=== PATIENT | female | born 1970 | race Caucasian/White ===

== ENCOUNTER → 2020-08-19 07:44 | Outpatient (BNVA) | payer OTHER, SELFPAY | PROVIDERS: PCP Internal Medicine; Referring Provider Internal Medicine; Visit Provider Internal Medicine | DX: Z76.89 Persons encountering health services in other specified circumstances (principal) ==

== ENCOUNTER 2020-08-19 08:00 | Outpatient (REF) | payer OTHER, SELFPAY ==
[2020-08-19 11:10] LABS: Free T4 (Free Thyroxine) 1.53 ng/dL (0.71-1.85); Thyroid Stimulating Hormone 1.55 uIU/mL (0.32-4.0); Vitamin D 25-OH Total 47.6 ng/mL (>30)
== END 2020-08-19 08:01 | disposition home or self-care (01) ==
LOC: HO.10HDL 08:00
PROVIDERS: Visit Provider Internal Medicine
DX: E03.9 Hypothyroidism, unspecified (principal); E04.2 Nontoxic multinodular goiter; E55.9 Vitamin D deficiency, unspecified
CPT/HCPCS: 36415; 82306; 84439; 84443

== ENCOUNTER 2021-03-09 14:21 | Outpatient (REF) | payer OTHER, SELFPAY ==
--- NOTE | ~2021-03-09 | MM_ITS ---
EXAMINATION: MM SCREENING DIGITAL BREAST TOMOSYNTHESIS, BILATERAL CLINICAL INFORMATION: Screening. Asymptomatic. The lifetime risk of breast cancer based on the Tyrer-Cuzick Model is 10%. COMPARISON: Mammography: 01/10/2020, 11/09/2018, 09/14/2006 TECHNIQUE: Digital breast tomosynthesis is performed in both the craniocaudal and mediolateral oblique views along with computer-aided detection (CAD). Synthesized 2D images are generated from the tomosynthesis. FINDINGS: There are scattered areas of fibroglandular density (ACR BI-RADS breast composition Category b). There are no significant masses, abnormal calcifications, or other abnormalities. Parenchymal pattern is similar to prior studies. Nodular asymmetry anterior upper outer left breast is stable. No developing density. There is mild asymmetry of the breast, left slightly larger, similar to prior studies. The axilla are unremarkable. MM/MM tomosynthesis screening BI IMPRESSION: No mammographic evidence of malignancy. ASSESSMENT: BI-RADS 2: Benign RECOMMENDATION: Routine annual mammography screening. This patient's information was entered into a reminder system with a target due date for their next mammogram.
== END 2021-03-09 14:22 | disposition home or self-care (01) ==
LOC: HO.MAMMO 14:21
PROVIDERS: Visit Provider Internal Medicine
DX: Z12.31 Encounter for screening mammogram for malignant neoplasm of breast (principal)
CPT/HCPCS: 77063; 77067

== ENCOUNTER 2021-07-03 07:48 | Outpatient (REF) | payer OTHER, SELFPAY ==
[2021-07-03 09:10] LABS: Hematocrit 45.5 % (37.0-47.0); Hemoglobin 14.9 g/dl (12.0-16.0); Mean Corpuscular HGB Conc 32.7 g/dl (31.0-35.0); Mean Corpuscular Hemoglobin 29.8 pg (27.0-33.0); Mean Platelet Volume 11.5 fL (9.4-12.3); Platelet Count 251 X10*3/uL (160-400); White Blood Count 7.5 X10*3/uL (4.8-10.8)
[2021-07-03 09:38] LABS: Alanine Aminotransferase 37 U/L (0-31); Albumin Level 4.7 g/dL (3.5-5.0); Alkaline Phosphatase 61 U/L (39-117); Anion Gap 15 (12-20); Aspartate Amino Transferase 21 U/L (5-31); Bilirubin Total 0.2 mg/dL (0.0-1.0); Blood Urea Nitrogen 22 mg/dL (9-16); Calcium 9.5 mg/dL (8.4-10.2); Carbon Dioxide 25 mmol/L (22-29); Chloride 107 mmol/L (96-108); Cholesterol 141 mg/dL; Estimated Glomerular Filt Rate > 60; Glucose Fasting 92 mg/dL (60-99); HDL Cholesterol 54 mg/dL; LDL Cholesterol Calculated 65 mg/dl; Potassium 4.7 mmol/L (3.3-5.1); Sodium 142 mmol/L (135-145); Total Protein 7.8 g/dL (6.5-8.0); Triglycerides 110 mg/dL
[2021-07-03 09:49] LABS: TSH reflex Free T4 2.04 uIU/mL (0.32-4.0)
[2021-07-03 09:59] LABS: Estimated Average Glucose 105 mg/dL; Hemoglobin A1C 151.9669 umol/L; Hemoglobin A1c % 5.3 %
[2021-07-03 10:20] LABS: Vitamin D 25-OH Total 43.3 ng/mL (>30)
== END 2021-07-03 07:49 | disposition home or self-care (01) ==
LOC: HO.LAB 07:48
PROVIDERS: PCP Internal Medicine; Visit Provider Physician Assistant
DX: Z13.1 Encounter for screening for diabetes mellitus (principal); E03.9 Hypothyroidism, unspecified; E66.9 Obesity, unspecified; E55.9 Vitamin D deficiency, unspecified
CPT/HCPCS: 36415; 80053; 80061; 82306; 83036; 84443; 85027

== ENCOUNTER → 2021-07-28 14:33 | Outpatient (REF) | payer OTHER, SELFPAY ==
--- NOTE | 2021-07-28 14:38 | ECG_ITS ---
Test Reason : r00.2 Blood Pressure : / mmHG Vent. Rate : 066 BPM Atrial Rate : 066 BPM P-R Int : 176 ms QRS Dur : 094 ms QT Int : 428 ms P-R-T Axes : 058 -48 091 degrees QTc Int : 448 ms Normal sinus rhythm with sinus arrhythmia Left axis deviation Incomplete right bundle branch block Nonspecific T wave abnormality Abnormal ECG When compared with ECG of 19-FEB-2017 02:14, QRS duration has decreased Nonspecific T wave abnormality no longer evident in Inferior leads T wave inversion no longer evident in Anterior leads Referred By: Aicha Rodriguez Electronically Signed By:LIBBY HATFIELD MD
== END ==
LOC: HO.CARD 14:33
PROVIDERS: Visit Provider Nurse Practitioner Family
DX: R00.2 Palpitations (principal)
CPT/HCPCS: 93005

== ENCOUNTER → 2021-08-18 08:24 | Outpatient (BNVA) | payer OTHER, SELFPAY | PROVIDERS: PCP Internal Medicine; Visit Provider Internal Medicine ==

== ENCOUNTER → 2021-10-20 06:51 | Outpatient (REF) | payer OTHER, SELFPAY ==
--- NOTE | 2021-10-20 06:56 | HM_ITS ---
* Total monitoring time 3 days and 2 hours. * Underlying rhythm is sinus. Average rate 82/Min. Range 61 to 120/Min. * No atrial fibrillation or flutter or AV blocks or pauses. * Rare ventricular ectopy with minimal burden. * No clear patient symptoms documented. MTDD
== END ==
LOC: HO.CARD 06:51
PROVIDERS: PCP Internal Medicine; Visit Provider Nurse Practitioner Family
DX: R00.2 Palpitations (principal)
CPT/HCPCS: 93242

== ENCOUNTER 2022-01-28 12:08 | Outpatient (REF) | payer OTHER, SELFPAY ==
[2022-01-28 14:19] LABS: Free T4 (Free Thyroxine) 1.06 ng/dL (0.71-1.85); Thyroid Stimulating Hormone 0.71 uIU/mL (0.32-4.0)
[2022-01-28 14:25] LABS: Alanine Aminotransferase 45 U/L (0-31); Albumin Level 4.5 g/dL (3.5-5.0); Alkaline Phosphatase 59 U/L (39-117); Anion Gap 14 (12-20); Aspartate Amino Transferase 27 U/L (5-31); Bilirubin Total 0.3 mg/dL (0.0-1.0); Blood Urea Nitrogen 15 mg/dL (9-16); Calcium 8.7 mg/dL (8.4-10.2); Carbon Dioxide 26 mmol/L (22-29); Chloride 108 mmol/L (96-108); Estimated Glomerular Filt Rate > 60; Glucose Random 90 mg/dL (60-115); Potassium 4.5 mmol/L (3.3-5.1); Sodium 143 mmol/L (135-145); Total Protein 7.2 g/dL (6.5-8.0)
== END 2022-01-28 12:09 | disposition home or self-care (01) ==
LOC: HO.10HDL 12:08
PROVIDERS: Absent Provider Nurse Practitioner Family; Visit Provider Internal Medicine
DX: E03.9 Hypothyroidism, unspecified (principal); E04.2 Nontoxic multinodular goiter; I10 Essential (primary) hypertension
CPT/HCPCS: 36415; 80053; 84439; 84443

== ENCOUNTER 2022-03-18 15:42 | Outpatient (REF) | payer OTHER, SELFPAY ==
--- NOTE | ~2022-03-18 | MM_ITS ---
EXAMINATION: MM SCREENING DIGITAL BREAST TOMOSYNTHESIS, BILATERAL CLINICAL INFORMATION: Screening. Asymptomatic. The lifetime risk of breast cancer based on the Tyrer-Cuzick Model is 10%. COMPARISON: Mammography: 03/09/2021, 01/10/2020, 11/09/2018 TECHNIQUE: Digital breast tomosynthesis is performed in both the craniocaudal and mediolateral oblique views along with computer-aided detection (CAD). Synthesized 2D images are generated from the tomosynthesis. FINDINGS: There are scattered areas of fibroglandular density (ACR BI-RADS breast composition Category b). Parenchymal pattern is similar to prior studies. There is a stable nodule anterior upper outer left breast. There is no developing density or architectural abnormality or abnormal calcifications. The axilla are unremarkable. The skin contours are smooth. Again, there is a probable intradermal lesion under 1 cm inferior to the left inframammary fold on MLO view similar to prior exams. MM/MM tomosynthesis screening BI IMPRESSION: No significant changes from prior studies. ASSESSMENT: BI-RADS 2: Benign RECOMMENDATION: Routine annual mammography screening. This patient's information was entered into a reminder system with a target due date for their next mammogram.
== END 2022-03-18 15:43 | disposition home or self-care (01) ==
LOC: HO.MAMMO 15:42
PROVIDERS: PCP Internal Medicine; Visit Provider Internal Medicine
DX: Z12.31 Encounter for screening mammogram for malignant neoplasm of breast (principal)
CPT/HCPCS: 77063; 77067

== ENCOUNTER 2022-05-02 13:26 | Outpatient (REF) | payer OTHER, SELFPAY ==
--- NOTE | ~2022-05-02 | XR_ITS ---
EXAMINATION: XR HIP, LEFT CLINICAL INFORMATION: Left hip pain COMPARISON: None TECHNIQUE: Two views of the left hip. FINDINGS: Bones and soft tissues are normal. No fracture. Alignment is anatomic. Hip joint space is maintained. XR/XR hip LT min 2V IMPRESSION: Normal left hip.
== END 2022-05-02 13:27 | disposition home or self-care (01) ==
LOC: HO.XRAY 13:26
PROVIDERS: PCP Internal Medicine; Visit Provider Internal Medicine
DX: M25.552 Pain in left hip (principal)
CPT/HCPCS: 73502

== ENCOUNTER 2022-08-20 08:47 | Outpatient (REF) | payer OTHER, SELFPAY ==
[2022-08-20 09:23] LABS: Hematocrit 42.6 % (37.0-47.0); Hemoglobin 14.1 g/dl (12.0-16.0); Mean Corpuscular HGB Conc 33.1 g/dl (31.0-35.0); Mean Corpuscular Hemoglobin 29.8 pg (27.0-33.0); Mean Corpuscular Volume 90.1 fL (80.0-98.0); Mean Platelet Volume 11.2 fL (9.4-12.3); Platelet Count 205 X10*3/uL (160-400); Red Blood Count 4.73 X10*6/uL (4.20-5.50); White Blood Count 5.3 X10*3/uL (4.8-10.8)
[2022-08-20 09:43] LABS: Creatinine Urine 209.54 mg/dL
[2022-08-20 09:52] LABS: Alanine Aminotransferase 46 U/L (0-31); Albumin Level 4.4 g/dL (3.5-5.0); Alkaline Phosphatase 63 U/L (39-117); Anion Gap 14 (12-20); Aspartate Amino Transferase 23 U/L (5-31); Bilirubin Direct 0.4 mg/dL (0.0-0.5); Bilirubin Total 1.1 mg/dL (0.0-1.0); Blood Urea Nitrogen 13 mg/dL (9-16); Calcium 8.9 mg/dL (8.4-10.2); Carbon Dioxide 25 mmol/L (22-29); Chloride 108 mmol/L (96-108); Cholesterol 150 mg/dL; Estimated Glomerular Filt Rate > 60; Glucose Fasting 97 mg/dL (60-99); HDL Cholesterol 59 mg/dL; LDL Cholesterol Calculated 83 mg/dl; Sodium 143 mmol/L (135-145); Total Protein 7.1 g/dL (6.5-8.0); Triglycerides 43 mg/dL
[2022-08-20 10:08] LABS: Vitamin D 25-OH Total 30.6 ng/mL (>30)
== END 2022-08-20 08:48 | disposition home or self-care (01) ==
LOC: HO.LAB 08:47
PROVIDERS: PCP Physician Assistant; Visit Provider Physician Assistant
DX: I10 Essential (primary) hypertension (principal); E03.9 Hypothyroidism, unspecified; E55.9 Vitamin D deficiency, unspecified; R74.01 Elevation of levels of liver transaminase levels
CPT/HCPCS: 36415; 80053; 80061; 80076; 82043; 82306; 84443; 85027

== ENCOUNTER 2022-09-12 11:22 | Outpatient (REF) | payer OTHER, SELFPAY ==
--- NOTE | ~2022-09-12 | XR_ITS ---
EXAMINATION: XR PELVIS CLINICAL INFORMATION: Sacroiliitis. COMPARISON: None TECHNIQUE: AP view of the pelvis. FINDINGS: SI joints are symmetric with mild sclerosis. Pubic symphysis is maintained. No acute fractures or malalignment. Mild joint space narrowing with subcortical sclerosis of the hips. Pelvic phleboliths. No suspicious soft tissue calcifications. XR/XR pelvis 1-2V IMPRESSION: 1. No acute fractures or malalignment. 2. Mild symmetric sclerosis of the SI joints. 3. Mild degenerative osteoarthritis of the hips.
--- NOTE | ~2022-09-12 | XR_ITS ---
EXAMINATION: XR LUMBOSACRAL SPINE CLINICAL INFORMATION: Sacroiliitis. COMPARISON: No similar priors. TECHNIQUE: Three views of the lumbosacral spine. FINDINGS: Transitional lumbar anatomy with sacralization of L5. No acute compression deformity or subluxation. Mild left apical curvature of the lumbar spine. Disc height loss and facet arthropathy at L4-L5. SI joints are symmetric with mild sclerosis. No significant paraspinal soft tissue abnormality. XR/XR lumbar spine 2-3V IMPRESSION: 1. No acute compression deformity or malalignment. 2. Mild to moderate lower lumbar spondylosis. 3. SI joints are symmetric with mild sclerosis.
== END 2022-09-12 11:23 | disposition home or self-care (01) ==
LOC: HO.XRAY 11:22
PROVIDERS: PCP Physician Assistant; Visit Provider Physician Assistant
DX: M46.1 Sacroiliitis, not elsewhere classified (principal); M54.50 Low back pain, unspecified
CPT/HCPCS: 72100; 72170

== ENCOUNTER → 2022-09-28 13:00 | Outpatient (BNVA) | payer OTHER, SELFPAY | PROVIDERS: PCP Physician Assistant; Visit Provider Internal Medicine | DX: Z13.89 Encounter for screening for other disorder (principal) ==

== ENCOUNTER 2022-10-28 10:19 | Outpatient (REF) | payer OTHER, SELFPAY ==
[2022-10-28 13:35] LABS: Alanine Aminotransferase 41 U/L (0-31); Albumin Level 4.3 g/dL (3.5-5.0); Alkaline Phosphatase 59 U/L (39-117); Aspartate Amino Transferase 24 U/L (5-31); Bilirubin Direct 0.2 mg/dL (0.0-0.5); Bilirubin Total 0.5 mg/dL (0.0-1.0); Lipase 18 U/L (8-78); Total Protein 6.7 g/dL (6.5-8.0)
[2022-11-04 13:58] LABS: Transglutaminase Ab IgG 1.1 U/mL; Transglutaminase IgA <1.0 U/mL
== END 2022-10-28 10:20 | disposition home or self-care (01) ==
LOC: HO.LAB 10:19
PROVIDERS: PCP Physician Assistant; Visit Provider Nurse Practitioner Family
DX: R10.9 Unspecified abdominal pain (principal); K58.1 Irritable bowel syndrome with constipation; R10.13 Epigastric pain
CPT/HCPCS: 36415; 80076; 83690; 86364

== ENCOUNTER 2023-03-17 11:07 | Day surgery (SDC) | payer OTHER, SELFPAY ==
[2023-03-15 14:43] VITALS: BMI 32.4
--- NOTE | 2023-03-16 09:24 | HO.ANESPROP2 ---
Documented by User: Tenisha Gardner NP 03/16/23 09:25 HPI - Anesthesia Eval Consult details Narrative: 53yo F for Upper Endoscopy and Colonoscopy PMFSH Active Problems Active Problems: All Active Problems (Updated 03/15/23 @ 14:32 by Haritha Armas RN) Annual physical exam (Acute) Colon cancer screening (Acute) Obese (Acute) Screening for diabetes mellitus (DM) (Acute) Screening for hypercholesterolemia (Acute) Intermittent palpitations (Acute) Benign essential hypertension (Acute) Elevated ALT measurement (Acute) Left hip pain (Acute) Cervical cancer screening (Acute) SI (sacroiliac) joint inflammation (Acute) Lumbar spine pain (Acute) JT (generalized anxiety disorder) (Acute) Vitamin D deficiency (Acute) Multinodular thyroid (Acute) Hypothyroidism (Acute) Past Medical History Medical History (Updated 03/15/23 @ 14:32 by Haritha Armas RN) Anxiety Hypothyroidism Multinodular thyroid Vitamin D deficiency Family History Family History Father Lung cancer Mother Hypothyroidism Diabetes mellitus CAD (coronary artery disease) Brother CAD (coronary artery disease), Onset Age: 50 Diabetes mellitus Surgical History Surgical History (Updated 03/15/23 @ 14:43 by Haritha Armas RN) History of dilatation and curettage History of esophagogastroduodenoscopy (EGD) Hx of section Hx of tonsillectomy Social History Social History Housing: House Are you a primary patient care secretary to a significant other at home: No Do you presently have visiting nurse or other home services: No Alcohol intake: current Alcohol intake frequency: holidays/special occasions only Patient Tobacco Use Status: Former Tobacco user Quit Date: 2011 Tobacco use type: Cigarette Cigarette Packs Per Day: 1 Years Smoked: 20 e-Cigarette/Vaping Use: Never Used Second Hand Smoke Exposure: No Use of substances other than those prescribed or required for medical reasons: No Have you been hit, kicked, punched, or otherwise hurt by someone within the past year? 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[employer] ) Cognitive needs: No Hearing needs: No Vision needs: Yes (glasses) Meds Allergies Allergy/AdvReac Type Severity Reaction Status Date / Time Seasonal Allergies Allergy Unknown Unknown Verified 03/15/23 14:30 Home Medications Medication Instructions Recorded Confirmed Last Taken Type bupropion HCl 100 mg tablet 100 mg PO QPM 03/15/23 03/15/23 Unknown History losartan 25 mg tablet 25 mg PO QAM 03/15/23 03/15/23 Unknown History Exam Exam Date and Time: March 16, 2023923 Height,Weight and Vital Signs: Height 5 ft 4 in Weight 85.729 kg Assessment and Plan Assessment Anesthesia Assessment: Chart Reviewed Documented by User: Brinda Zimmerman MD 03/17/23 13:42 [facility] Past Medical History Medical History (Updated 03/15/23 @ 14:32 by Haritha Armas RN) Anxiety Hypothyroidism Multinodular thyroid Vitamin D deficiency Family History Family History Father Lung cancer Mother Hypothyroidism Diabetes mellitus CAD (coronary artery disease) Brother CAD (coronary artery disease), Onset Age: 50 Diabetes mellitus Family history of problems with anesthesia: No Surgical History Surgical History (Updated 03/15/23 @ 14:43 by Haritha Armas RN) History of dilatation and curettage History of esophagogastroduodenoscopy (EGD) Hx of section Hx of tonsillectomy History of Problems with Anesthesia: No Social History Social History Housing: House Are you a primary patient care secretary to a significant other at home: No Do you presently have visiting nurse or other home services: No Alcohol intake: current Alcohol intake frequency: holidays/special occasions only Patient Tobacco Use Status: Former Tobacco user Quit Date: 2011 Tobacco use type: Cigarette Cigarette Packs Per Day: 1 Years Smoked: 20 e-Cigarette/Vaping Use: Never Used Second Hand Smoke Exposure: No Use of substances other than those prescribed or required for medical reasons: No Have you been hit, kicked, punched, or otherwise hurt by someone within the past year? 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[employer] ) Cognitive needs: No Hearing needs: No Vision needs: Yes (glasses) Meds Allergies Allergy/AdvReac Type Severity Reaction Status Date / Time Seasonal Allergies Allergy Unknown Unknown Verified 03/15/23 14:30 Home Medications Medication Instructions Recorded Confirmed Last Taken Type bupropion HCl 100 mg tablet 100 mg PO QPM 03/15/23 03/15/23 Unknown History losartan 25 mg tablet 25 mg PO QAM 03/15/23 03/15/23 Unknown History Exam Airway Mallampati Class: II (cap left bottom back, fake tooth removed and at home) TM Dist: >3cm Neck ROM: Full Heart: rrr Lungs: cta Assessment and Plan Assessment Anesthesia Assessment: Anesthesia Plan Discussed Final Anesthetic Review Family History of Problems with Anesthesia: No History of Problems with Anesthesia: No NPO: Yes ASA Class: II Final Preanesthetic Review: No Changes in Pt Med Stat, Meds/Allgs Chart Reviewed and Consent Obtained/Reviewed Patient Risk: Intermediate Procedure Risk: Intermediate Anesthetic Plan Anesthetic Plan: MAC: Disposition: Standard PACU
[2023-03-17 12:05] VITALS: BP 141/101; PULSE 66; RESP 16; TEMP 36.8; O2SAT 98; BMI 33.3
[2023-03-17] MEDS: Lactated Ringers 1,000 ML 100 ML IVCONT (12:34)
--- NOTE | 2023-03-17 12:36 | MHC.SHP ---
Pre-Procedural Eval Section A Date of Service: 03/17/23 The patient is an INPATIENT: No The History & Physical has been completed within 30 days and I have reviewed it.: No Section B Chief Complaint: Screening, epigastric pain and bloating Relevant Family History (Specify if Yes): No Relevant Social History: Tobacco Use (former smoker) Present Medications: see Short Stay Collaborative assessment Medical History: Significant History (Hypothyroidism Multinodular thyroid Vitamin D deficiency) History of Previous Operations: Relevant previous surgery/procedure and date(s) (Hx of section Hx of tonsillectomy) Allergies: Allergies Allergy/AdvReac Type Severity Reaction Status Date / Time Seasonal Allergies Allergy Unknown Unknown Verified 03/15/23 14:30 Review of Systems Sugical H&P ROS: Negative: Constitution, Cardiovascular and Respiratory and Yes, Specify: Gastrointestinal (epigastric pain, bloating, constipation) Exam Surgical H&P Exam: Normal: Heart, Normal: Lungs, Normal: Extremities and Normal: Abdomen Plan Diagnosis/Plan: Unchanged I have reviewed the history and physical and performed a pertinent physical examination on my patient. No changes have occurred unless specified. Time Spent With Patient Time: Total time managing care of this patient today ____ minutes.
--- NOTE | 2023-03-17 13:45 | P.OP_ITS ---
Operative Note Operative Note Date of Service: 03/17/23 Narrative: FLEXIBLE TRANSORAL UPPER GASTROINTESTINAL ENDOSCOPY WITH BIOPSIES AND COLONOSCOPY TILL CECUM WITH SNARE POLYPECTOMY Pre-op diagnosis: Colon cancer screening, epigastric pain and bloating, hx of PUD Post-op diagnosis: Gastritis, gastric erosions, colon polyps, diverticulosis Endoscopist:? Sandy Horn MD Anesthesia:?MAC UPPER ENDOSCOPY Consent: Indications for the procedure and potential complications of bleeding, perforation, reaction to medications and missed diagnosis were discussed with the patient and informed consent was obtained. Instrument: Olympus GIF H 190 mid size upper endoscope Monitoring: Vital signs and clinical assessment, continuous EKG monitoring, Pulse oximetry, Carbon Dioxide monitoring and blood pressure monitoring were done throughout the procedure. Procedure: The patient was placed in the left lateral decubitis position and pre-procedure medications were administered and a bite block was placed. The endoscope was inserted into the mouth and advanced under direct vision to the third part of duodenum. A careful inspection was made as the upper endoscope was withdrawn including a retroflexed examination of the proximal stomach; Findings and interventions are described below. Findings: Larynx: Normal Esophagus: GE junction at 38 cms. No esophagitis or Guaman's. Stomach: A few linear eroions overlying gastric folds in the body of the stomach - biopsied. Moderate gastric erythema. Biopsies were obtained. Grade 2 flap valve with possible para-esophageal hernia on retroflexed examination of the cardia. Duodenum: Normal bulb and descending duodenum. Biopsies were obtained from third part of duodenum to check for celiac sprue Intervention: Biopsies as noted above COLONOSCOPY PROCEDURE NOTE Consent: Indications for the procedure and potential complications of bleeding, perforation, reaction to medications and missed diagnosis were discussed with the patient and informed consent was obtained. Instrument: Olympus PCF H 190 L variable stiffness pediatric colonoscope Monitoring: Vital signs and clinical assessment, intermittent blood pressure monitoring, continuous EKG monitoring, Pulse oximetry and Carbon Dioxide monitoring were done throughout the procedure. Colon withdrawl time was 15 minutes. Procedure: The patient was placed in the left lateral decubitis position and pre-procedure medications were administered. After a digital rectal examination of the ano-rectum, the video colonoscope was inserted into the rectum and advanced through the colon to the cecum. The colonoscope was slowly withdrawn in a retrograde panoramic fashion and the colon mucosa was carefully examined including a retroflexed view of the rectum. Findings and interventions are described below. Procedure Difficulty: : Without difficulty Findings: Terminal Ileum: Not evaluated Cecum: Normal Ascending Colon: A 7-8 mm sessile polyp in the distal AC/hepatic flexure - removed with a cold snare Transverse Colon: Normal Descending Colon: Normal Sigmoid Colon: Moderate diverticulosis Rectum: A 7-8 mm sessile polyp - removed with a cold snare Ano-rectum: Hypertrophied anal papillae on retroflexed exam. Colon preparation: Excellent Impression and Post Procedure Diagnosis: Endoscopy Findings: STOMACH: A few linear eroions overlying gastric folds in the body of the stomach - biopsied. Moderate gastric erythema. Biopsies were obtained. Grade 2 flap valve with possible para-esophageal hernia on retroflexed examination of the cardia. DUODENUM: Normal - biopsied to check for celiac sprue Colonoscopy Findings: Two small polyps removed Moderate diverticulosis seen in the sigmoid colon Plan: Await pathology results Patient has an appointment on 03/31/23 in the [facility] with Samantha Valdovinos FNP- [facility]. Repeat Colonoscopy interval based on path results - in 5 years if polyps are adenomatous and 10 years if polyps are hyperplastic. Above findings were reviewed with the patient and colon polyps and diverticulosis handouts were given in the discharge area Pt advised to start taking Omeprazole for gastric erosions and schedule an UGI to confirm presence of suspected paraesophageal hernia
[2023-03-17 14:40] VITALS: BP 138/87; PULSE 68; RESP 18; TEMP 36.6; O2SAT 98
[2023-03-17 14:55] VITALS: BP 138/87; PULSE 68; RESP 18; TEMP 36.4; O2SAT 98
== END 2023-03-17 15:20 | disposition home or self-care (01) ==
PROVIDERS: PCP Physician Assistant; Visit Provider Internal Medicine Gastroenterology
PROC: (CPT 45385; principal; 2023-03-17 12:40)
DX: Z12.11 Encounter for screening for malignant neoplasm of colon (principal); D12.2 Benign neoplasm of ascending colon; K62.1 Rectal polyp; K57.30 Diverticulosis of large intestine without perforation or abscess without bleeding; K58.1 Irritable bowel syndrome with constipation; K62.89 Other specified diseases of anus and rectum; R14.0 Abdominal distension (gaseous); K29.70 Gastritis, unspecified, without bleeding; K25.9 Gastric ulcer, unspecified as acute or chronic, without hemorrhage or perforation; E03.9 Hypothyroidism, unspecified; E04.2 Nontoxic multinodular goiter; E55.9 Vitamin D deficiency, unspecified; Z79.899 Other long term (current) drug therapy; Z87.891 Personal history of nicotine dependence
CPT/HCPCS: 45385; 43239; 88305; 88342; J2250

== ENCOUNTER → 2023-03-17 11:07 | Outpatient (BNV) | payer OTHER, SELFPAY | PROVIDERS: PCP Physician Assistant; Visit Provider Internal Medicine Gastroenterology | DX: Z12.11 Encounter for screening for malignant neoplasm of colon (principal); R10.13 Epigastric pain; D12.2 Benign neoplasm of ascending colon; K57.30 Diverticulosis of large intestine without perforation or abscess without bleeding; K29.70 Gastritis, unspecified, without bleeding | CPT/HCPCS: 43239; 45385 ==

== ENCOUNTER 2023-03-22 15:55 | Outpatient (REF) | payer OTHER, SELFPAY | END 2023-03-22 15:56 | disposition home or self-care (01) | LOC: HO.MAMMO 15:55 | PROVIDERS: PCP Internal Medicine; Visit Provider Internal Medicine | DX: Z12.31 Encounter for screening mammogram for malignant neoplasm of breast (principal) | CPT/HCPCS: 77063; 77067 ==

== ENCOUNTER → 2023-03-22 16:15 | Outpatient (BNV) | payer OTHER, SELFPAY | PROVIDERS: PCP Internal Medicine; Visit Provider Radiology Diagnostic Radiology | DX: Z12.31 Encounter for screening mammogram for malignant neoplasm of breast (principal) | CPT/HCPCS: 77063; 77067 ==

== ENCOUNTER 2023-03-31 08:08 | Outpatient (REF) | payer OTHER, SELFPAY ==
--- NOTE | ~2023-03-31 | XR_ITS ---
EXAMINATION: XR ELBOW, LEFT CLINICAL INFORMATION: Pain. COMPARISON: None available. TECHNIQUE: AP, lateral, and oblique views of the left elbow. FINDINGS: The bones and soft tissues are normal. No fracture or joint effusion. Alignment is anatomic. Joint spaces are maintained. XR/XR elbow LT 2V IMPRESSION: Normal left elbow.
== END 2023-03-31 08:09 | disposition home or self-care (01) ==
LOC: HO.XRAY 08:08
PROVIDERS: PCP Internal Medicine; Visit Provider Internal Medicine
DX: M25.522 Pain in left elbow (principal)
CPT/HCPCS: 73070

== ENCOUNTER 2023-03-31 08:30 | Outpatient (AMB) | payer OTHER, SELFPAY ==
--- NOTE | 2023-03-31 08:34 | A.OFFVIS_ITS ---
Intake Vital Signs 03/31/23 08:35 Height 5 ft 4 in Weight 198 lb 6.656 oz BMI 34.1 BP 150/86 H Blood Pressure Location Lt brachial Position Sitting Pulse 78 Intake Visit Reasons: S/p colon-Kory Intake Note: Gay presents in office as a post op in colonoscopy follow up. CC: Pt reports she continues having constipation bloating , gas , and abdominal pain. Denies any new GI concerns today. [employer] Required: No Accompanied by: Self / Same As Patient Allergies Seasonal Allergies Allergy (Unknown, Verified 03/31/23 08:45) Unknown HPI S/p colon-Kory HPI Details LAST VISIT Colon cancer screening Patient denies any cardiac or respiratory symptoms.? Denies any issues with anesthesia in the past.? Denies any history of sleep apnea.? No history infectious diseases in the past or present.? Not on any anticoagulation therapy.? No family or personal history of colon cancer or polyps.? Patient denies melena, hematochezia, unintentional weight loss or ribbon like stools.? Discussed at length the pre-procedure,? prep, diet & medications as well as what to expect prior, during and after the procedure.?? Stressed the importance of good bowel prep. ?Recommended the use of Vaseline or Calmoseptine OTC & baby wipes with bowel movements to promote comfort.? ?Patient verbalizes understanding and agrees to plan of care.? She was given the opportunity to ask questions and all questions answered.? We will see her after the procedure.? IBS (irritable bowel syndrome) Patient reports occasional constipation for friend abdominal bloating. Discussed with patient avoiding dietary triggers. Low FODMAP diet discussed with patient. List of food recommended as well as list of food to avoid given to patient. Postprandial epigastric pain Occasional postprandial epigastric discomfort. Patient reports to have a history of gastric ulcers when she was younger. Will send her for upper endoscopy as well. We will also check for celiac, pancreatic insufficiency. Will check liver enzymes and lipase. I will see her after the procedures. She will call me sooner if she will have any GI concerning symptoms. Patient is agreeable to this plan and verbalizes understanding of instructions. She was given the opportunity to ask questions all questions answered. ? UPPER ENDOSCOPY AND COLONOSCOPY Findings: Larynx: Normal Esophagus: GE junction at 38 cms. No esophagitis or Guaman's. Stomach: A few linear eroions overlying gastric folds in the body of the stomach - biopsied. Moderate gastric erythema. Biopsies were obtained. Grade 2 flap valve with possible para-esophageal hernia on retroflexed examination of the cardia. Duodenum: Normal bulb and descending duodenum. Biopsies were obtained from third part of duodenum to check for celiac sprue Intervention: Biopsies as noted above COLONOSCOPY Findings: Terminal Ileum: Not evaluated Cecum: Normal Ascending Colon: A 7-8 mm sessile polyp in the distal AC/hepatic flexure - removed with a cold snare Transverse Colon: Normal Descending Colon: Normal Sigmoid Colon: Moderate diverticulosis Rectum: A 7-8 mm sessile polyp - removed with a cold snare Ano-rectum: Hypertrophied anal papillae on retroflexed exam. Colon preparation: Excellent Impression and Post Procedure Diagnosis: Endoscopy Findings: STOMACH: A few linear eroions overlying gastric folds in the body of the stomach - biopsied. Moderate gastric erythema. Biopsies were obtained. Grade 2 flap valve with possible para-esophageal hernia on retroflexed examination of the cardia. DUODENUM: Normal - biopsied to check for celiac sprue Colonoscopy Findings: Two small polyps removed Moderate diverticulosis seen in the sigmoid colon Plan: Await pathology results Patient has an appointment on 03/31/23 in the GI Clinic with Samantha Valdovinos FNP- BC. Repeat Colonoscopy interval based on path results - in 5 years if polyps are adenomatous and 10 years if polyps are hyperplastic. PATHOLOGY RESULTS Diagnosis A. Small bowel, biopsy: Small bowel mucosa within normal limits; preserved villous architecture no increased intraepithelial lymphocytes seen. B. Stomach, antrum, biopsy: Gastric antral mucosa with reactive gastropathy; negative for Helicobacter pylori, intestinal metaplasia and dysplasia. C. Stomach, erosion, biopsy: Gastric body mucosa with mild reactive gastropathy; negative for Helicobacter pylori, intestinal metaplasia and dysplasia. D. Colon, ascending, polypectomy: Sessile serrated polyp/lesion without dysplasia. E. Colon, rectum, polypectomy: Hyperplastic polyp. TODAY'S VISIT: Patient is here today for follow-up and to discuss upper endoscopy and colonoscopy. Patient denies any ill effects from the prep, anesthesia or procedure itself. Patient continues with postprandial epigastric pain. Patient states that after she eats she will get sharp pain in epigastric area. States that does not happen every time. Patient was placed on omeprazole after going for the procedure. Takes 20 mg every morning. Patient continues to have occasional postprandial abdominal bloating. Occasional postprandial loose stools and then constipation. Patient does admit that she might not be eating food that is healthy. Patient is trying to change her diet and trying to exercise. Patient is trying to lose weight as well. Patient reports occasional dyspepsia without dysphagia or odynophagia. Patient denies melena, hematochezia, unintentional weight loss or ribbon like stools. [facility] Medical History (Updated 03/31/23 @ 09:23 by Samantha Valdovinos [facility]) Anxiety Vitamin D deficiency Multinodular thyroid Hypothyroidism Surgical History (Updated 03/30/23 @ 09:10 by Carlo Mart) Hx of colonoscopy History of esophagogastroduodenoscopy (EGD) History of dilatation and curettage Hx of tonsillectomy Hx of section Family History Father Lung cancer Mother Hypothyroidism Diabetes mellitus CAD (coronary artery disease) Brother CAD (coronary artery disease), Onset Age: 50 Diabetes mellitus Social History Housing: House Are you a primary critical care rn to a significant other at home: No Do you presently have visiting nurse or other home services: No Alcohol intake: current Alcohol intake frequency: holidays/special occasions only Patient Tobacco Use Status: Former Tobacco user Quit Date: 2011 Tobacco use type: Cigarette Cigarette Packs Per Day: 1 Years Smoked: 20 e-Cigarette/Vaping Use: Never Used Second Hand Smoke Exposure: No service: No Current occupational status: employed 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[employer] ) Cognitive needs: No Hearing needs: No Vision needs: Yes (glasses) Review of Systems Const Denies weight gain and Denies weight loss ENT Reports no additional complaints, Denies dysphagia and Denies odynophagia Card Reports no additional complaints Resp Reports no additional complaints GI Denies abdominal pain, Denies belching, Denies melena, Reports bloating, Reports constipation, Denies dysphagia, Denies excessive flatus, Denies dyspepsia, Denies heartburn, Denies diarrhea, Reports loose stools, Denies nausea, Denies odynophagia and Denies vomiting Reports no additional complaints Musc Reports no additional complaints Neuro Reports no additional complaints Psych Reports no additional complaints Endo Reports no additional complaints Physical Exam Vital Signs: Last Vital Signs Pulse 78 03/31/23 08:35 BP 150/86 H 03/31/23 08:35 BMI result Body Mass Index 34.1 Const General: healthy appearing, no acute distress and well developed Nutritional Appearance: well nourished Orientation/consciousness: patient oriented x3 HEENT Head: Yes normal to inspection, Yes normocephalic and Yes atraumatic Face and sinus: Yes normal facial exam Mouth: Normal oral and palatal mucosa present Throat: Yes posterior oropharynx normal, Yes tonsils normal and Yes uvula midline Eyes General: appearance normal, both eyes and all related structures Neck Neck: Yes normal visual inspection, Yes full ROM and Yes trachea midline Thyroid: Thyroid normal Resp Effort & Inspection: normal respiratory effort, able to speak in complete sentences, no tracheal deviation and symmetric chest movement Auscultation: clear to auscultation bilaterally Cardio Rate: regular rate Heart sounds: S1 normal heart sound present and S2 normal heart sound present GI Inspection: Yes normal to inspection, No distended and Yes obesity Palpation (GI): Soft to palpation, not firm, nontender and No hepatosplenomegaly present Auscultation: normal bowel sounds General: Yes no CVA tenderness Back/Spine/Pelvis Back: no CVA tenderness Skin General skin exam: elasticity normal, turgor normal and dry skin Neuro General: patient oriented x3 Psych Appearance: grossly normal Mental Status: mental status grossly normal Speech and movement: Normal speech and movement present Assessment & Plan Assessment & Plan (1) Paraesophageal hernia: Code(s): K44.9 - Diaphragmatic hernia without obstruction or gangrene Plan: Possible paraesophageal hernia, patient will be sent for barium swallow. (2) Postprandial epigastric pain: Code(s): R10.13 - Epigastric pain Plan: Patient reports postprandial epigastric pain occasionally. Will send her to evaluate for paraesophageal hernia (3) Gastric erosions: Code(s): K25.9 - Gastric ulcer, unspecified as acute or chronic, without hemorrhage or perforation Qualifiers: Gastric ulcer chronicity: chronic Qualified Code(s): K25.7 - Chronic gastric ulcer without hemorrhage or perforation (4) GERD (gastroesophageal reflux disease): Code(s): K21.9 - Gastro-esophageal reflux disease without esophagitis Qualifiers: Esophagitis presence: without esophagitis Qualified Code(s): K21.9 - Gastro-esophageal reflux disease without esophagitis Plan: Continue omeprazole in the morning half an hour before breakfast. Patient can take Pepcid on as needed basis at bedtime. Discussed with patient avoiding dietary triggers in late night snacking. Staying upright for minimum 3 hours after meals discussed with patient. (5) IBS (irritable bowel syndrome): Code(s): K58.9 - Irritable bowel syndrome without diarrhea Qualifiers: Irritable bowel syndrome type: with both diarrhea and constipation Qual ified Code(s): K58.2 - Mixed irritable bowel syndrome Plan: Discussed with patient again dietary triggers that could be affecting her loose stools postprandially. Low FODMAP diet discussed. List of food recommended as well as list of food to avoid given to patient again. I will see her in 6 months, sooner on as needed basis. Patient is agreeable to this plan and verbalizes understanding of instructions. She was given the opportunity to ask questions all questions answered. Thank you for allowing me to participate in her care Medications: New famotidine (Pepcid) 20 mg PO BEDTIME 30 tabs 3RF K21.9 - Gastro-esophageal reflux disease without esophagitis Changed From omeprazole Take one capsule daily 30 minutes before breakfast 20 mg PO .Daily 60 days 60 caps 2RF K25.9 - Gastric ulcer, unspecified as acute or chronic, without hemorrhage or perforation To omeprazole Take one capsule daily 30 minutes before breakfast 20 mg PO DAILY 60 days 60 caps 2RF K25.9 - Gastric ulcer, unspecified as acute or chronic, without hemorrhage or perforation Coding Level of Care Code Est Pt Level 4 (81898) Diagnoses Paraesophageal hernia K44.9 Postprandial epigastric pain R10.13 Chronic gastric erosion K25.7 Gastric ulcer chronicity: chronic Gastroesophageal reflux disease without esophagitis K21.9 Esophagitis presence: without esophagitis Irritable bowel syndrome with both constipation and diarrhea K58.2 Irritable bowel syndrome type: with both diarrhea and constipation Time Spent (min) 40 Comment 25 minutes spent with patient and additional 15 minute spent reviewing her records
[2023-03-31 08:35] VITALS: BP 150/86; PULSE 78; BMI 34.1
== END 2023-03-31 09:12 | disposition home or self-care (01) ==
PROVIDERS: PCP Physician Assistant; Visit Provider Nurse Practitioner Family
DX: K44.9 Diaphragmatic hernia without obstruction or gangrene (principal); R10.13 Epigastric pain; K25.7 Chronic gastric ulcer without hemorrhage or perforation; K21.9 Gastro-esophageal reflux disease without esophagitis; K58.2 Mixed irritable bowel syndrome
CPT/HCPCS: 99214

== ENCOUNTER 2023-04-13 14:31 | Outpatient (AMB) | payer OTHER, SELFPAY ==
--- NOTE | 2023-04-13 14:56 | MHC.OFFVIS ---
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 Patient reports pain presented in January, unaware of injury, but does go to the gym twice a week. She feels here elbow locks and will hear a pop. States loosing her ROM, unable to fully extend her arm. Denies numbness or tingling. 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 The patient reports the pain began in 01/2023 when she thought she had a bursitis. She is unaware of any known injury. She states she could have caused the pain while at the gym but is unsure. She confirms attending the gym two times a week. She states her elbow will lock on her and she will have to pop the elbow to release it. She claims she has been losing ROM and is unable to fully extend her arm. She denies numbness or tingling. [facility] Medical History (Updated 04/13/23 @ 15:20 by Jennifer Neely PA-C) Anxiety Vitamin D deficiency Multinodular thyroid Hypothyroidism Surgical History Hx of colonoscopy History of esophagogastroduodenoscopy (EGD) History of dilatation and curettage Hx of tonsillectomy Hx of section Family History Father Lung cancer Mother Hypothyroidism Diabetes mellitus CAD (coronary artery disease) Brother CAD (coronary artery disease), Onset Age: 50 Diabetes mellitus Social History (Updated 04/13/23 @ 14:59 by BIBI Rea) Housing: House Are you a primary medicare coordinator to a significant other at home: No Do you presently have visiting nurse or other home services: No Alcohol intake: current Alcohol intake frequency: holidays/special occasions only Patient Tobacco Use Status: Former Tobacco user Quit Date: 2011 Tobacco use type: Cigarette Cigarette Packs Per Day: 1 Years Smoked: 20 e-Cigarette/Vaping Use: Never Used Second Hand Smoke Exposure: No service: No Current occupational status: employed 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[employer] ) Cognitive needs: No Hearing needs: No Vision needs: Yes (glasses) Review of Systems Const All systems reviewed & are unremarkable except as noted in HPI and below Physical Exam Vital Signs: BMI result Body Mass Index 34.0 Const General: cooperative and no acute distress Orientation/consciousness: patient oriented x3 Resp Effort & Inspection: normal respiratory effort and able to speak in complete sentences Cardio Peripheral pulses: Peripheral pulses 2+ throughout Skin General skin exam: no rashes or lesions noted Neuro General: patient oriented x3 Extrem Other: Left elbow: Tenderness to palpation lateral epicondyle. Lacking 10 degrees of full extension. No varus or valgus laxity. NVI. Office Procedures Joint Injection/Drain Joint Injection/Drain Primary Site: left tennis elbow Prep: site was prepped using aseptic technique, ethochloride spray was applied and injection warnings given Injected: 40 mg of, DepoMedrol, with 1 mL of (2% plain lido ) and decadron (lateral epicondyle ) Procedure: The patient tolerated the procedure well, but had some pain with the injection and there was some relief with the local anesthesia Coding 29211 - Epicondyle Procedure code (CPT) selection complete Results Reviewed Results Reviewed: 04/13/23 15:15 Lidocaine HCl 2 % MPF [Xylocaine 2 % MPF] 5 ml .ROUTE .STK-MED ONE methylPREDNISolone acetate [DEPO-MedroL] 40 mg .ROUTE .STK-MED ONE Assessment & Plan Assessment & Plan (1) Lateral epicondylitis of left elbow: Code(s): M77.12 - Lateral epicondylitis, left elbow Plan Ms. Spann is a 53-year-old right hand dominant female who presents in the office today, as a new patient, for an evaluation of left elbow pain. The patient reports the pain began in 01/2023 when she thought she had a bursitis. She is unaware of any known injury. She states she could have caused the pain while at the gym but is unsure. She confirms attending the gym two times a week. She states her elbow will lock on her and she will have to pop the elbow to release it. She claims she has been losing ROM and is unable to fully extend her arm. She denies numbness or tingling. The patient was offered a cortisone injection in the left elbow with 80 mg of DepoMedrol. The patient was explained the risk, benefits, and alternatives to receiving this injection. After receiving consent for the injection, the patient had the procedure done while in office today. The patient tolerated the procedure well with no complications. The patient will be referred for occupational therapy to work on ROM and the lateral epicondyle. She was educated on icing and OTC ibuprofen PRN. If the cortisone injection and occupational therapy do not give the patient relief we might consider moving forward with an MRI. Follow up will be PRN, or sooner if needed. X-rays of the left elbow, obtained on 03/31/2023, revealed no acute fractures or dislocation. Orders: Orders OT Evaluation and Treatment 04/13/23 M77.12 - Lateral epicondylitis, left elbow Patient Instructions: Scribed for Jennifer Neely PA-C by Bhargavi Whitman medical transcription radiology, on 04/13/2023 at 2:39 pm, EST. Coding Level of Care Code New Pt Level 4 (32349) Diagnoses Lateral epicondylitis of left elbow M77.12 CPT Codes Coding - Joint 2: 11852 - Epicondyle ([id number])
[2023-04-13 15:02] VITALS: BMI 34.0
== END 2023-04-13 15:53 | disposition home or self-care (01) ==
PROVIDERS: PCP Physician Assistant; Visit Provider Physician Assistant
DX: M77.12 Lateral epicondylitis, left elbow (principal)
CPT/HCPCS: 20550; 99204

== ENCOUNTER → 2023-04-13 14:31 | Outpatient (BNVA) | payer OTHER, SELFPAY | PROVIDERS: PCP Physician Assistant; Visit Provider Physician Assistant | DX: M77.12 Lateral epicondylitis, left elbow (principal) | CPT/HCPCS: 20550; 20551; J1020 ==

== ENCOUNTER 2023-05-17 15:00 | Outpatient (RCR) | payer OTHER, SELFPAY ==
--- NOTE | 2023-05-05 16:23 | MHC.OT.EP ---
[address] [phone] Occupational Therapy Plan of Care Patient Name: Gay Spann Date of Evaluation: 05/05/23 Diagnosis: Left elbow lateral epicondylitis Pain Location: Denies pain . Left elbow Pain Score: 0 Pain Scale Used: Numeric (0 - 10) Aggravating Factors: Free weights , push ups, kettle bells > 19 lb bilaterally Alleviating Factors: Assessment: Pt is a 53 yo female with worsening left elbow pain , locking and loss of full elbow extension since this past January after progressing her Kettle meade exercise from 16 lb to 20 lb at the gym. She has participated in a circuit program with no other injury Pt was seen at [facility] on 04/13/23 and was agreeable to having her elbow injected and referral to OT Today she reports her elbow pain is resolved, occasionally achy. ROM is improved but not equal to her right elbow hyper extension and her elbow continues to lock intermittently with daily activities including after extensive typing Pt will benefit from OT for manual therapy and ther ex to reduce inflammation increase left elbow ROM and smooth gliding of tissues for ease with daily activities and prevent re injury Frequency and Duration: The patient will be seen 1x wk x 3 wks Short Term Goals: Indep with upper extremity DTM and stretches Increase left elbow ext to neutral Inrcease ease with left hand reaching back of her neck Report rare occurrence of left elbow locking/popping 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 Thank you once again for your referral.
--- NOTE | 2023-05-17 15:55 | MHC.OT.DC ---
[address] [phone] F: [phone] Occupational Therapy Discharge Note Patient Name: Gay Spann Provider: Jennifer Neely Diagnosis: Left elbow lateral epicondylitis Date of Surgery: Date of Evaluation: 05/05/23 Date of Discharge: 05/17/23 Treatments to Date: 3 Cancellations to Date: 0 No Shows to Date: 0 Discharge Status: Achieved Goals Improved Function Independent with HEP Discharge Summary: Pt reports no pain since cortisone injection. Rare elbow popping to 1x a day. She has returned to the gym cautiously. Goals met for ROM, strength and function. Hoop Maker strength R 70 lb L 70 lb Electronically Signed By: Alka Brown OT CHT CLT Reviewed/agree with student documentation: Therapist: Please Sign and return to therapist, thank you for your referral.
== END 2023-05-17 15:55 | disposition home or self-care (01) ==
LOC: HO.OT 15:00
PROVIDERS: PCP Internal Medicine; Visit Provider Physician Assistant
DX: M77.12 Lateral epicondylitis, left elbow (principal)
CPT/HCPCS: 97035; 97110; 97140; 97166

== ENCOUNTER 2023-06-09 07:40 | Outpatient (REF) | payer OTHER, SELFPAY ==
--- NOTE | ~2023-06-09 | FL_ITS ---
EXAMINATION: XR FLUOROSCOPY UPPER GI WITH AIR CLINICAL INFORMATION: Dysphagia. Epigastric pain. Paraesophageal hernia seen on endoscopy. COMPARISON: None TECHNIQUE: Fluoroscopic air contrast upper GI examination was performed utilizing standard techniques with thin and thick barium and effervescent granules. Numerous spot images were obtained. FINDINGS: Dual and single contrast images of the esophagus demonstrate normal caliber, contour, and mucosal pattern. No evidence of stricture, mass, or ulcerations identified. Primary esophageal peristalsis was normal. Mild nonpropulsive tertiary contractions are noted in the distal esophagus. 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 This resulted in mild ballooning of the hypopharynx during swallow. A small type I hiatal hernia is present. Gastroesophageal reflux is seen up to the thoracic inlet. Dual contrast and single contrast images of the stomach demonstrated normal contour and mucosal pattern without evidence of mass, ulceration, or other abnormality. Contrast freely passed into the gastric antrum and duodenal bulb without delay. Single and air-contrast images of the duodenal bulb demonstrate no abnormality. The duodenal sweep has a normal appearance, course, and mucosal fold appearance. The imaged proximal jejunum has a normal fold pattern and caliber. FLUOROSCOPY TIME: 3 minutes 21 seconds Number of Spot Images: 11 Number of Cine: 9 DOSE AREA PRODUCT: 3091 uGy-m2 (microgray-meter squared) FL/FL upper GI w air w Ba Swallow IMPRESSION: 1. Mild esophageal dysmotility 2. Small type I hiatal hernia 3. Significant gastroesophageal reflux This procedure was performed by Abdi Swann PA-C, and supervised by Dr. Purcell
== END 2023-06-09 07:41 | disposition home or self-care (01) ==
LOC: HO.XRAY 07:40
PROVIDERS: Visit Provider Internal Medicine Gastroenterology
DX: Z13.89 Encounter for screening for other disorder (principal)
CPT/HCPCS: 74246

== ENCOUNTER → 2023-06-09 07:44 | Outpatient (BNV) | payer OTHER, SELFPAY | PROVIDERS: Visit Provider Radiology Diagnostic Radiology | DX: R13.10 Dysphagia, unspecified (principal) | CPT/HCPCS: 74246 ==

== ENCOUNTER 2023-06-26 16:04 | Outpatient (AMB) | payer OTHER, SELFPAY ==
[2023-06-26 16:09] VITALS: BP 118/80; PULSE 63; O2SAT 96; BMI 31.8
--- NOTE | 2023-06-26 16:09 | MHC.PC.OV ---
Vital Signs 06/26/23 16:09 Height 5 ft 4 in Weight 185 lb BMI 31.8 BP 118/80 Blood Pressure Location Lt brachial Position Sitting Pulse 63 Pulse Source Pulse Oximeter Pulse Oximetry (%) 96 Oxygen Delivery Method Room Air Intake Visit Reasons: physical Intake Note: Patient is here today for a physical. County Director Required: No Accompanied by: Self / Same As Patient Allergies Seasonal Allergies Allergy (Unknown, Verified 06/26/23 16:29) Unknown Medication List - Last Reconciled 06/26/23 by Andrew Briones PA-C cetirizine (Zyrtec) 10 mg PO DAILY PRN famotidine (Pepcid) 20 mg PO BEDTIME levothyroxine 150 mcg PO QAM losartan 25 mg PO QAM omeprazole 20 mg PO DAILY 60 days Tobacco use date assessed: 06/26/23 Dental Screening Dental Screen Date: 06/26/23 Did you have a dental visit in the last 12 months?: Yes Did you have a dental problem in the last 6 months where you did not have access to dental care?: No Was dental information given to patient?: Patient has dentist HPI physical HPI Details Patient is a 53-year-old female here today for a routine annual physical.? Patient has a past medical history significant for thyroid nodules, hypothyroidism, vitamin-D deficiency, obesity. Patient follows endocrinology and most recent TSH has been stable on current dose of levothyroxine at 150 mcg.? Most recent TSH testing stable. Now needs PCP to manage her levothyroxine. .. GERD: Recently underwent EGD and a barium swallow. Does have severe GERD and a noted hiatal hernia. Has been started on omeprazole 20 mg. .. HTN: . She continues on losartan 25 mg. Blood pressure acceptable today in office. She has lost a significant amount of weight intentionally since last office visit.. Obesity:? Has lost weight since last office visit. Weight loss medication has not been effective for approved through insurance. Vaccines:? 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 Needs repeat Pap Colonoscopy:? Done in February of 2023 normal repeat 10 years [facility] Medical History Anxiety Vitamin D deficiency Multinodular thyroid Hypothyroidism Surgical History Hx of colonoscopy History of esophagogastroduodenoscopy (EGD) History of dilatation and curettage Hx of tonsillectomy Hx of section Family History Father Lung cancer Mother Hypothyroidism Diabetes mellitus CAD (coronary artery disease) Brother CAD (coronary artery disease), Onset Age: 50 Diabetes mellitus Social History (Updated 06/26/23 @ 16:42 by Andrew Briones PA-C) Housing: House Are you a primary acute care registered nurse to a significant other at home: No Do you presently have visiting nurse or other home services: No Alcohol intake: former Patient Tobacco Use Status: Former Tobacco user Quit Date: 2011 Tobacco use type: Cigarette Cigarette Packs Per Day: 1 Years Smoked: 20 e-Cigarette/Vaping Use: Never Used Second Hand Smoke Exposure: No service: No Current occupational status: employed 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 1. Little interest or pleasure in doing things: not at all 2. Feeling down, depressed, or hopeless: not at all 3. Trouble falling or staying asleep, or sleeping too much: not at all 4. Feeling tired or having little energy: not at all 5. Poor appetite or overeating: not at all 6. Feeling bad about yourself - or that you are a failure or have let yourself or your family down: not at all 7. Trouble concentrating on things, such as reading the newspaper or watching television: not at all 8. Moving or speaking so slowly that other people could have noticed. Or the opposite - being so fidgety or restless that you have been moving around a lot more than usual: not at all 9. Thoughts that you would be better off or of hurting yourself in some way: not at all Total score: 0 [id number] - PHQ-9 Billing: Yes Source: Developed by Drs. Mal Malhotra, Pat B.Rasheed Adames and colleagues, with an educational anna from [employer]. Thrive Questionnaire Date Thrive assessed: 06/26/23 I am a: Patient What is your living situation today?: I have a steady place to live Within the past 12 months, did the food you bought not last and you didn't have the money to get more?: Never true Within the past 12 months, did you worry whether your food would run out before you got money to buy more?: Never true Do you have trouble paying for medicines?: No Do you have trouble getting transportation to medical appointments?: No Do you have trouble paying your heating and electricity bill?: No Do you have trouble taking care of your child, family member or friend?: No Do you have trouble with day-to-day activities such as bathing, preparing meals, shopping, managing finances, etc.?: No Are you currently unemployed and looking for a job?: No Are you interested in more education?: No Please select the resources that you would like help with: None Currently or been in a relationship where the following occur: no concerns reported AUDIT C Alcohol Use Questionnaire (AUDIT-C) 1. How often do you have a drink containing alcohol?: Never 3. How often do you have six or more drinks on one occasion?: Never Total Score: 0 JT-7 AMB Questionnaire JT-7 Date JT - 7 assessed: 06/26/23 Feeling nervous, anxious, or on edge: 0 = Not at all Not being able to stop or control worryin = Not at all Worrying too much about different things: 0 = Not at all Trouble relaxin = Not at all Being so restless that it is hard to sit still: 0 = Not at all Becoming easily annoyed or irritable: 0 = Not at all Feeling afraid as if something awful might happen: 0 = Not at all Total JT-7 score (0-4 normal; 5-9 mild; 10-14 moderate; 15-21 severe): 0 Source: Developed by Drs. Mal Malhotra, Rasheed Salazar and colleagues, with an educational anna from [employer]. JT-7 Assessment Billing JT-7 Assessment Tool: JT-7 Assessment 92642 Review of Systems Const Denies body aches, Denies chills, Denies excessive sweating, Denies fatigue, Denies fever(s) and Denies headache(s) Eyes Denies blurry vision ENT Denies dysphagia, Denies vertigo, Denies dizziness, Denies headache(s), Denies hearing loss and Denies tinnitus Card Denies chest pain, Denies chest pain with activity, Denies syncope, Denies irregular heart rhythm and Denies dyspnea Resp Denies chest congestion, Denies cough, Denies hemoptysis, Denies dyspnea and Denies wheezing GI Denies abdominal pain, Denies melena, Denies hematochezia, Denies coffee ground emesis, Denies dysphagia, Denies diarrhea, Denies nausea and Denies vomiting Denies urinary frequency, Denies dysuria, Denies urinary hesitancy and Denies urinary urgency Musc Denies arthralgias, Denies limited range of motion, Denies muscle cramps and Denies muscle weakness Skin/Breast Denies rash and Denies skin ulcer Neuro Denies Abnormal speech present, Denies confusion, Denies vertigo, Denies dizziness, Denies syncope, Denies headache(s), Denies memory loss and Denies seizure-like activity Psych Denies anxiety, Denies confusion, Denies depression, Denies memory loss, Denies panic attacks and Denies paranoia Endo Denies excessive sweating, Denies fatigue, Denies flushing, Denies polydipsia and Denies polyuria Aller/Immun Denies wheezing Physical exam (Primary Care) Vital Signs: Last Vital Signs Pulse 63 06/26/23 16:09 BP 118/80 06/26/23 16:09 Pulse Ox 96 06/26/23 16:09 Oxygen Delivery Method Room Air 06/26/23 16:09 BMI result Body Mass Index 31.8 BMI Assessment/Plan discussion: High Tobacco/Smoking Status: Tobacco use Status Tobacco use date assessed 06/26/23 06/26/23 16:17 Patient Tobacco Use Status Former Tobacco user 06/26/23 16:42 Tobacco use type Cigarette 06/26/23 16:42 e-Cigarette/Vaping Use Never Used 06/26/23 16:42 PHQ-9: PHQ-9 Score PHQ-9: Total score 0 06/26/23 16:30 Thrive Assessment: Date of Thrive Assessment Date Thrive assessed 06/26/23 06/26/23 16:17 Currently or been in a relationship where the following occur: no concerns reported Const Other: Obese though weight loss noted General: cooperative, comfortable, no acute distress, alert and awake; No confusion Orientation/consciousness: oriented to person, oriented to place, patient oriented x3 and No confusion HENMT Head: Yes normocephalic Ears: external ears normal and TM's normal bilaterally Face and sinus: No sinus tenderness Mouth: Normal oral and palatal mucosa present and tongue normal Teeth and gingiva: dentition normal and gingiva normal Throat: Yes posterior oropharynx normal, Yes tonsils normal and Yes uvula midline Eyes Conjunctivae: conjunctivae normal Sclerae: sclerae normal Pupils: Equal, round and reactive pupils present EOM: EOMs intact bilaterally Direct Ophthalmoscopy: No no photophobia Neck Neck: Yes no lymphadenopathy, No tender and Yes no JVD Thyroid: Thyroid normal Carotids: no bruits Chest Chest palpation & inspection: no tenderness Resp Effort & Inspection: normal respiratory effort, no audible wheezes, not labored and no stridor Auscultation: no crackles, no rales, no rhonchi and no wheezes Cardio Jugular venous distension: no JVD Rate: regular rate, not bradycardic and not tachycardic Rhythm: regular rhythm Bruits: no carotid bruits Peripheral pulses: Peripheral pulses 2+ throughout GI Inspection: Yes normal to inspection, No abdominal wall ecchymosis and No visible herniation Palpation (GI): Soft to palpation, nontender, no guarding, not rigid and No hepatosplenomegaly present Auscultation: normoactive bowel sounds General: Yes no CVA tenderness Back/Spine/Pelvis Back: no CVA tenderness and No back tenderness Cervical Spine: cervical ROM normal Thoracic/Lumbar Spine: thoracic and lumbar spine normal to inspection, straight leg raise negative bilaterally, No thoraco-lumbar ROM limited and No lumbar spinal tenderness Skin Lesions: no lesions Rashes: no rashes Wounds: no wounds Neuro General: oriented to person, oriented to place, patient oriented x3, CN's II-XI intact bilaterally and No confusion Cranial nerves: Yes Equal, round and reactive pupils present and Yes Normal accommodation reflex present Cognition (Neuro): normal cognition Speech: No Abnormal speech present Gait exam (Neuro): Normal gait present Motor exam (neuro): 5/5 motor strength present throughout Extrem Right upper extremity: full ROM; no cyanosis Left upper extremity: full ROM; no cyanosis Right lower extremity: no edema Left lower extremity: no edema Psych Appearance: grossly normal Mental Status: mental status grossly normal Affect: normal affect Attitude: cooperative Thought process: Normal thought process present Assessment and Plan Assessment & Plan (1) Annual physical exam: Code(s): Z00.00 - Encounter for general adult medical examination without abnormal findings (2) Benign essential hypertension: Code(s): I10 - Essential (primary) hypertension Plan: Patient's blood pressure acceptable today in office. Continues on losartan 25 mg with good effect. Blood pressure in a lower side now, has lost significant amount of weight intentionally since last office visit. Does report few episodes of dizziness and should be is this to not eating. Will continue to follow blood pressure at home (3) Cervical cancer screening: Code(s): Z12.4 - Encounter for screening for malignant neoplasm of cervix Plan: Given the phone number to the [place] operational intelligence analyst office to call for cervical cancer screening (4) Hypothyroidism: Code(s): E03.9 - Hypothyroidism, unspecified Qualifiers: Hypothyroidism type: unspecified Qualified Code(s): E03.9 - Hypothyroidism, unspecified Plan: Was followed by endocrinology continues on levothyroxine 150 mcg. TSH has been stable. Now needs PCP to manage her levothyroxine. Will continue to follow TSH to assure normal. (5) Paraesophageal hernia: Code(s): K44.9 - Diaphragmatic hernia without obstruction or gangrene Plan: Had recent EGD showing a paraesophageal hernia and GERD symptoms. Has been started on antacid medication. Will continue to try to follow dietary modifications Orders: Orders TSH reflex Free T4 06/26/23 E03.9 - Hypothyroidism, unspecified, Z82.49 - Family history of ischemic heart disease and other diseases of the circulatory system Complete Blood Count no Diff 06/26/23 I10 - Essential (primary) hypertension, Z82.49 - Family history of ischemic heart disease and other diseases of the circulatory system Comprehensive [place]. Panel Fast 06/26/23 I10 - Essential (primary) hypertension, Z82.49 - Family history of ischemic heart disease and other diseases of the circulatory system Lipid Panel 06/26/23 I10 - Essential (primary) hypertension, Z82.49 - Family history of ischemic heart disease and other diseases of the circulatory system Coding Level of Care Code Est Pt Prev Care 40-64y(47469) Diagnoses Annual physical exam Z00.00 Benign essential hypertension I10 Cervical cancer screening Z12.4 Hypothyroidism, unspecified type E03.9 Hypothyroidism type: unspecified Paraesophageal hernia K44.9 Additional Codes JT-7 Assessment Billing - JT-7 Assessment Tool: JT-7 Assessment [id number] ([id number])
== END 2023-06-26 17:00 | disposition home or self-care (01) ==
PROVIDERS: Visit Provider Physician Assistant
DX: Z00.00 Encounter for general adult medical examination without abnormal findings (principal); I10 Essential (primary) hypertension; Z12.4 Encounter for screening for malignant neoplasm of cervix; E03.9 Hypothyroidism, unspecified; K44.9 Diaphragmatic hernia without obstruction or gangrene
CPT/HCPCS: 99396

== ENCOUNTER 2023-07-22 09:51 | Outpatient (REF) | payer OTHER, SELFPAY ==
[2023-07-22 10:32] LABS: Hematocrit 39.7 % (37.0-47.0); Hemoglobin 13.4 g/dl (12.0-16.0); Mean Corpuscular HGB Conc 33.8 g/dl (31.0-35.0); Mean Corpuscular Hemoglobin 30.5 pg (27.0-33.0); Mean Corpuscular Volume 90.4 fL (80.0-98.0); Platelet Count 201 X10*3/uL (160-400); Red Blood Count 4.39 X10*6/uL (4.20-5.50); Red Cell Distribution Width 13.1 % (11.0-16.0); White Blood Count 5.7 X10*3/uL (4.8-10.8)
[2023-07-22 11:00] LABS: Alanine Aminotransferase 35 U/L (0-31); Albumin Level 3.5 g/dL (3.5-5.0); Alkaline Phosphatase 50 U/L (39-117); Anion Gap 11 (12-20); Aspartate Amino Transferase 16 U/L (5-31); Bilirubin Total 0.4 mg/dL (0.0-1.0); Blood Urea Nitrogen 13 mg/dL (9-16); Carbon Dioxide 26 mmol/L (22-29); Chloride 111 mmol/L (96-108); Cholesterol 138 mg/dL (<200); Estimated Glomerular Filt Rate > 60; Glucose Fasting 101 mg/dL (60-99); HDL Cholesterol 49 mg/dL (>40); LDL Cholesterol Calculated 82 mg/dL (<100); Potassium 4.2 mmol/L (3.3-5.1); Sodium 144 mmol/L (135-145); Total Protein 5.7 g/dL (6.5-8.0); Triglycerides 39 mg/dL (<150)
[2023-07-22 11:15] LABS: TSH reflex Free T4 0.23 uIU/mL (0.32-4.0)
[2023-07-22 11:45] LABS: Free T4 (Free Thyroxine) 1.01 ng/dL (0.71-1.85)
== END 2023-07-22 09:52 | disposition home or self-care (01) ==
LOC: HO.LAB 09:51
PROVIDERS: PCP Physician Assistant; Visit Provider Physician Assistant
DX: I10 Essential (primary) hypertension (principal); E03.9 Hypothyroidism, unspecified; Z82.49 Family history of ischemic heart disease and other diseases of the circulatory system
CPT/HCPCS: 36415; 80053; 80061; 84439; 84443; 85027

== ENCOUNTER 2023-09-27 07:43 | Outpatient (REF) | payer BC, SELFPAY ==
[2023-09-27 11:06] LABS: TSH reflex Free T4 2.16 uIU/mL (0.32-4.0)
== END 2023-09-27 07:44 | disposition home or self-care (01) ==
LOC: HO.10HDL 07:43
PROVIDERS: Visit Provider Physician Assistant
DX: R10.13 Epigastric pain (principal); K25.7 Chronic gastric ulcer without hemorrhage or perforation; K21.9 Gastro-esophageal reflux disease without esophagitis; K58.9 Irritable bowel syndrome, unspecified
CPT/HCPCS: 36415; 84443

== ENCOUNTER 2023-09-27 08:30 | Outpatient (AMB) | payer BC, SELFPAY ==
--- NOTE | 2023-09-27 08:55 | A.OFFVIS_ITS ---
Intake Vital Signs 09/27/23 09:06 Height 5 ft 4 in Weight 188 lb 4.396 oz BMI 32.3 BP 136/84 Blood Pressure Location Lt brachial Position Sitting Pulse 63 Intake Visit Reasons: 6 month follow up Intake Note: Patient is seen in office for 6 month follow up visit, following IBS & GERD. Pt c/o: continued gas and bloating, denies nausea, vomit, diarrhea, constipaiton, no other GI concerns It Compliance Manager Required: No Accompanied by: Self / Same As Patient Allergies Seasonal Allergies Allergy (Unknown, Verified 06/26/23 16:29) Unknown HPI 6 month follow up HPI Details LAST VISIT Paraesophageal hernia Possible paraesophageal hernia, patient will be sent for barium swallow. Postprandial epigastric pain Patient reports postprandial epigastric pain occasionally. Will send her to evaluate for paraesophageal hernia Gastric erosions GERD (gastroesophageal reflux disease) Continue omeprazole in the morning half an hour before breakfast. Patient can take Pepcid on as needed basis at bedtime. Discussed with patient avoiding dietary triggers in late night snacking. Staying upright for minimum 3 hours after meals discussed with patient. IBS (irritable bowel syndrome) Discussed with patient again dietary triggers that could be affecting her loose stools postprandially. Low FODMAP diet discussed. List of food recommended as well as list of food to avoid given to patient again. I will see her in 6 months, sooner on as needed basis. Patient is agreeable to this plan and verbalizes understanding of instructions. She was given the opportunity to ask questions all questions answered. ? Thank you for allowing me to participate in her care Plan Medications New famotidine (Pepcid) 20 mg PO BEDTIME 30 tabs 3RF K21.9 Changed Changed From omeprazole Take one capsule daily 30 minutes before breakfast 20 mg PO .Daily 60 days 60 caps 2RF K25.9 Changed To omeprazole Take one capsule daily 30 minutes before breakfast 20 mg PO DAILY 60 days 60 caps 2RF K25.9 TODAY'S VISIT: Patient is here today for follow-up and to discuss barium swallow results. Patient reports that she is no longer taking the omeprazole as she did not notice any help when she was taking it. Patient reports that she continues to have occasional postprandial abdominal bloating. Patient noticed that it happens with certain specially with processed. Patient is trying to avoid dietary triggers trying to follow a low FODMAP diet as much as she can. Patient is trying to lose weight, lost 10 lbs since last visit. Patient denies any nausea or vomiting. Reports occasional dyspepsia and dysphagia without odynophagia. [facility] Medical History (Updated 09/27/23 @ 09:[address] [facility]) Vitamin D deficiency Multinodular thyroid Hypothyroidism Surgical History Hx of colonoscopy History of esophagogastroduodenoscopy (EGD) History of dilatation and curettage Hx of tonsillectomy Hx of section Family History Father Lung cancer Mother Hypothyroidism Diabetes mellitus CAD (coronary artery disease) Brother CAD (coronary artery disease), Onset Age: 50 Diabetes mellitus Social History Housing: House Are you a primary laboratory animal care veterinarian to a significant other at home: No Do you presently have visiting nurse or other home services: No Alcohol intake: former Patient Tobacco Use Status: Former Tobacco user Quit Date: 2011 Tobacco use type: Cigarette Cigarette Packs Per Day: 1 Years Smoked: 20 e-Cigarette/Vaping Use: Never Used Second Hand Smoke Exposure: No service: No Current occupational status: employed 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[employer] ( [employer] ) Cognitive needs: No Hearing needs: No Vision needs: Yes (glasses) Review of Systems Const Denies weight gain and Denies weight loss ENT Reports no additional complaints, Denies dysphagia and Denies odynophagia Card Reports no additional complaints Resp Reports no additional complaints GI Denies abdominal pain, Denies belching, Denies melena, Reports bloating, Denies change in bowel habits, Denies dysphagia, Denies excessive flatus, Denies dyspepsia, Reports heartburn, Denies diarrhea, Denies loose stools, Denies nausea, Denies odynophagia and Denies vomiting Reports no additional complaints Musc Reports no additional complaints Neuro Reports no additional complaints Psych Reports no additional complaints Endo Reports no additional complaints Physical Exam Const General: healthy appearing, no acute distress and well developed Nutritional Appearance: well nourished Orientation/consciousness: patient oriented x3 Resp Effort & Inspection: normal respiratory effort, able to speak in complete sentences, no tracheal deviation and symmetric chest movement Auscultation: clear to auscultation bilaterally Cardio Rate: regular rate GI Inspection: Yes normal to inspection and No distended Palpation (GI): Soft to palpation, not firm, nontender and No hepatosplenomegaly present Auscultation: normal bowel sounds General: Yes no CVA tenderness Back/Spine/Pelvis Back: no CVA tenderness Skin General skin exam: elasticity normal, turgor normal and dry skin Neuro General: patient oriented x3 Psych Appearance: grossly normal Mental Status: mental status grossly normal Results Reviewed Results Reviewed: BARIUM SWALLOW IMPRESSION: 1. Mild esophageal dysmotility 2. Small type I hiatal hernia 3. Significant gastroesophageal reflux Assessment & Plan Assessment & Plan (1) Postprandial epigastric pain: Code(s): R10.13 - Epigastric pain (2) Gastric erosions: Code(s): K25.9 - Gastric ulcer, unspecified as acute or chronic, without hemorrhage or perforation Qualifiers: Gastric ulcer chronicity: chronic Qualified Code(s): K25.7 - Chronic gastric ulcer without hemorrhage or perforation (3) GERD (gastroesophageal reflux disease): Code(s): K21.9 - Gastro-esophageal reflux disease without esophagitis Qualifiers: Esophagitis presence: esophagitis presence not specified Qualified Code(s): K21.9 - Gastro-esophageal reflux disease without esophagitis (4) IBS (irritable bowel syndrome): Code(s): K58.9 - Irritable bowel syndrome without diarrhea Qualifiers: Irritable bowel syndrome type: without diarrhea Qualified Code(s): K58.9 - Irritable bowel syndrome without diarrhea Plan Continue avoiding dietary triggers and late night snacking. Staying upright for minimum 3 hours after meals discussed with patient. Patient will stop taking omeprazole and start pantoprazole. Continue low FODMAP diet to help with bloating. Patient was encouraged to increase fluid intake and activity to promote better bowel motility. Barium swallow showed significant gastric reflux and mild esophageal dysmotility that could be caused by reflux. Patient will call the office if pantoprazole will not work. I will see her in 6 months, sooner on as needed basis. Patient is agreeable to this plan and verbalizes understanding of instructions. She was given the opportunity to ask questions and all questions answered. Thank you for allowing me to participate in her care Medications: New pantoprazole take one tablet half an hour before breakfast 40 mg PO DAILY 30 tabs 2RF K21.9 - Gastro-esophageal reflux disease without esophagitis Discontinued omeprazole Take one capsule daily 30 minutes before breakfast Discontinued Reason: Doctor's Order 20 mg PO DAILY 60 days 60 caps 2RF K25.9 - Gastric ulcer, unspecified as acute or chronic, without hemorrhage or perforation Coding Level of Care Code Est Pt Level 3 (02858) Diagnoses Postprandial epigastric pain R10.13 Chronic gastric erosion K25.7 Gastric ulcer chronicity: chronic Gastroesophageal reflux disease, unspecified whether esophagitis present K21.9 Esophagitis presence: esophagitis presence not specified Irritable bowel syndrome without diarrhea K58.9 Irritable bowel syndrome type: without diarrhea Time Spent (min) 30 Comment 20 minutes spent with patient and additional 10 minutes spent reviewing her records
[2023-09-27 09:06] VITALS: BP 136/84; PULSE 63; BMI 32.3
== END 2023-09-27 09:33 | disposition home or self-care (01) ==
PROVIDERS: PCP Physician Assistant; Visit Provider Nurse Practitioner Family
DX: R10.13 Epigastric pain (principal); K25.7 Chronic gastric ulcer without hemorrhage or perforation; K21.9 Gastro-esophageal reflux disease without esophagitis; K58.9 Irritable bowel syndrome, unspecified
CPT/HCPCS: 99213

== ENCOUNTER 2023-10-02 08:19 | Outpatient (AMB) | payer BC, SELFPAY ==
--- NOTE | 2023-10-02 08:45 | A.OFFPC_ITS ---
Vital Signs 10/02/23 08:48 Height 5 ft 4 in Weight 189 lb BMI 32.4 BP 122/72 Blood Pressure Location Lt brachial Position Sitting Pulse 56 Pulse Source Pulse Oximeter Pulse Oximetry (%) 96 Oxygen Delivery Method Room Air Intake Visit Reasons: f/u Intake Note: Patient is here to follow up on Hypothyroidism and HTN. Corporate Banking Officer Required: No Coal Shoveler: Not Required per policy Accompanied by: Self / Same As Patient Allergies Seasonal Allergies Allergy (Unknown, Verified 10/02/23 09:02) Unknown Medication List - Last Reconciled 10/02/23 by Andrew Briones PA-C cetirizine (Zyrtec) 10 mg PO DAILY PRN famotidine 20 mg PO BEDTIME levothyroxine 150 mcg PO QAM losartan 25 mg PO QAM pantoprazole 40 mg PO DAILY Tobacco use date assessed: 10/02/23 Dental Screening Dental Screen Date: 10/02/23 Did you have a dental visit in the last 12 months?: Yes Did you have a dental problem in the last 6 months where you did not have access to dental care?: No Was dental information given to patient?: Patient has dentist HPI f/u HPI Details Patient is a 53-year-old female here today for a follow-up visit l.? Patient has a past medical history significant for thyroid nodules, hypothyroidism, vitamin-D deficiency, obesity. Hypothyroidism: Patient follows endocrinology and most recent TSH has been stable on current dose of levothyroxine at 150 mcg.? Most recent TSH testing stable. .. GERD: Recently underwent EGD and a barium swallow. Does have severe GERD and a noted hiatal hernia. Her omeprazole has been changed to pantoprazole. Has been starting a new herbal tea which has helped her constipation considerably. .. HTN: . She continues on losartan 25 mg. Blood pressure acceptable today in office. She has lost a significant amount of weight intentionally since last office visit.. She is concerned about low blood pressure readings in the mornings thus will hold her losartan dose for the next few weeks and monitor blood pressure. Obesity:? Has lost weight since last office visit. Weight loss medication has not been effective for approved through insurance. Laboratory Tests 07/03/21 01/28/22 01/28/22 07:51 12:15 12:15 RBC Creatinine 0.66 ALT 37 H 45 H Total Protein TSH 0.71 10/28/22 07/22/23 07/22/23 12:04 10:04 10:04 RBC Creatinine ALT Total Protein 6.7 5.7 L TSH 0.23 L 07/22/23 09/27/23 10:04 07:46 RBC 4.39 Creatinine ALT Total Protein TSH 2.16 [facility] Medical History (Updated 10/02/23 @ 09:12 by Andrew Briones PA-C) Vitamin D deficiency Multinodular thyroid Hypothyroidism Surgical History Hx of colonoscopy History of esophagogastroduodenoscopy (EGD) History of dilatation and curettage Hx of tonsillectomy Hx of section Family History Father Lung cancer Mother Hypothyroidism Diabetes mellitus CAD (coronary artery disease) Brother CAD (coronary artery disease), Onset Age: 50 Diabetes mellitus Social History Housing: House Are you a primary home care specialist to a significant other at home: No Do you presently have visiting nurse or other home services: No Alcohol intake: former Patient Tobacco Use Status: Former Tobacco user Quit Date: 2011 Tobacco use type: Cigarette Cigarette Packs Per Day: 1 Years Smoked: 20 e-Cigarette/Vaping Use: Never Used Second Hand Smoke Exposure: No service: No Current occupational status: employed 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 1. Little interest or pleasure in doing things: not at all 2. Feeling down, depressed, or hopeless: not at all 3. Trouble falling or staying asleep, or sleeping too much: not at all 4. Feeling tired or having little energy: not at all 5. Poor appetite or overeating: not at all 6. Feeling bad about yourself - or that you are a failure or have let yourself or your family down: not at all 7. Trouble concentrating on things, such as reading the newspaper or watching television: not at all 8. Moving or speaking so slowly that other people could have noticed. Or the opposite - being so fidgety or restless that you have been moving around a lot more than usual: not at all 9. Thoughts that you would be better off or of hurting yourself in some way: not at all Total score: 0 Depression Screening Interpretation: Negative Depression Screening Done: Yes 98000 - PHQ-9 Billing: Yes Source: Developed by Drs. Mal Malhotra, Pat Machado, Rasheed Giang and colleagues, with an educational anna from [employer]. Thrive Questionnaire Date Thrive assessed: 10/02/23 I am a: Patient What is your living situation today?: I have a steady place to live Within the past 12 months, did the food you bought not last and you didn't have the money to get more?: Never true Within the past 12 months, did you worry whether your food would run out before you got money to buy more?: Never true Do you have trouble paying for medicines?: No Do you have trouble getting transportation to medical appointments?: No Do you have trouble paying your heating and electricity bill?: No Do you have trouble taking care of your child, family member or friend?: No Do you have trouble with day-to-day activities such as bathing, preparing meals, shopping, managing finances, etc.?: No Are you currently unemployed and looking for a job?: No Are you interested in more education?: No Currently or been in a relationship where the following occur: no concerns reported THRIVE Score: 0 AUDIT C Alcohol Use Questionnaire (AUDIT-C) 1. How often do you have a drink containing alcohol?: Never Total Score: 0 JT-7 AMB Questionnaire JT-7 Date JT - 7 assessed: 10/02/23 Feeling nervous, anxious, or on edge: 0 = Not at all Not being able to stop or control worryin = Not at all Worrying too much about different things: 0 = Not at all Trouble relaxin = Not at all Being so restless that it is hard to sit still: 0 = Not at all Becoming easily annoyed or irritable: 0 = Not at all Feeling afraid as if something awful might happen: 0 = Not at all Total JT-7 score (0-4 normal; 5-9 mild; 10-14 moderate; 15-21 severe): 0 Source: Developed by Drs. Mal Malhotra, Pat Machado, Rasheed Giang and colleagues, with an educational anna from [employer]. JT-7 Assessment Billing JT-7 Assessment Tool: JT-7 Assessment 66583 Review of Systems Const Denies headache(s) Eyes Denies loss of vision ENT Denies vertigo, Denies dizziness, Denies headache(s) and Denies sore throat Card Denies chest pain, Denies leg edema and Denies lightheadedness Resp Denies cough, Denies hemoptysis and Denies wheezing GI Denies abdominal pain, Denies melena, Denies constipation, Denies diarrhea and Denies vomiting Denies urinary frequency, Denies dysuria and Denies urinary urgency Musc Denies arthralgias, Denies joint swelling, Denies numbness and Denies tingling Neuro Denies Abnormal speech present, Denies behavioral changes, Denies vertigo, Denies dizziness, Denies headache(s), Denies loss of vision, Denies memory loss, Denies numbness and Denies tingling Psych Denies anxiety, Denies behavioral changes, Denies depression, Denies memory loss and Denies panic attacks Donn/Lymph Denies easy bleeding and Denies easy bruising Aller/Immun Denies wheezing Physical exam (Primary Care) Vital Signs: Last Vital Signs Pulse 56 10/02/23 08:48 BP 122/72 10/02/23 08:48 Pulse Ox 96 10/02/23 08:48 Oxygen Delivery Method Room Air 10/02/23 08:48 BMI result Body Mass Index 32.4 Tobacco/Smoking Status: Tobacco use Status Tobacco use date assessed 10/02/23 10/02/23 08:56 Patient Tobacco Use Status Former Tobacco user 10/02/23 08:45 Tobacco use type Cigarette 10/02/23 08:45 e-Cigarette/Vaping Use Never Used 10/02/23 08:45 PHQ-9: PHQ-9 Score PHQ-9: Total score 0 10/02/23 08:56 Depression Screening Interpretation: Negative Thrive Assessment: Date of Thrive Assessment Date Thrive assessed 10/02/23 10/02/23 08:56 Currently or been in a relationship where the following occur: no concerns reported Const General: healthy appearing, no acute distress, alert and awake Nutritional Appearance: well nourished Orientation/consciousness: oriented to person, oriented to place and oriented to time HENMT Ears: TM's normal bilaterally General nose exam: Normal nasal mucous membranes and turbinates present Eyes Conjunctivae: conjunctivae normal Sclerae: sclerae normal Pupils: Equal, round and reactive pupils present Neck Neck: Yes no lymphadenopathy and Yes no JVD Thyroid: Thyroid normal Carotids: no bruits Resp Effort & Inspection: normal respiratory effort and not tachypneic Auscultation: no crackles, no rales, no rhonchi and no wheezes Cardio Rate: regular rate Rhythm: regular rhythm Heart sounds: no murmurs and normal S1 and S2 GI Palpation (GI): Soft to palpation, nontender, no hepatomegaly and no splenomegaly Auscultation: normal bowel sounds Skin General skin exam: no rashes or lesions noted and dry skin Neuro General: oriented to person, oriented to place and oriented to time Cranial nerves: Yes Equal, round and reactive pupils present Speech: No Abnormal speech present Gait exam (Neuro): Normal gait present Motor exam (neuro): no tremor noted Extrem Right upper extremity: full ROM Left upper extremity: full ROM Right lower extremity: full ROM; no edema Left lower extremity: full ROM; no edema Psych Mental Status: mental status grossly normal Speech and movement: Normal speech and movement present Affect: normal affect Attitude: cooperative Thought process: Normal thought process present Assessment and Plan Assessment & Plan (1) Benign essential hypertension: Code(s): I10 - Essential (primary) hypertension Plan: Patient's blood pressure acceptable today in office. Continues on losartan 25 mg with good effect. Blood pressure in a lower side now, has lost significant amount of weight intentionally since last office visit. She will trial being off of losartan and monitoring blood pressure. Blood pressure remains below 140/90 consistently will continue to hold losartan. Goal blood pressure to be below 140/90 and above 100/60 (2) Hypothyroidism: Code(s): E03.9 - Hypothyroidism, unspecified Qualifiers: Hypothyroidism type: unspecified Qualified Code(s): E03.9 - Hypothyroidism, unspecified Plan: Was followed by endocrinology continues on levothyroxine 150 mcg. TSH has been stable. Will continue to follow TSH to assure normal. (3) Subcutaneous cyst: Code(s): L72.9 - Follicular cyst of the skin and subcutaneous tissue, unspecified Plan: Has noted a subcutaneous cyst underneath her left breast over the last several months. Has been able to pop this is though has returned. Would like definitive treatment. Will refer to [place] general surgeon Orders: Orders TSH reflex Free T4 Today E03.9 - Hypothyroidism, unspecified Vitamin D 25-OH Total Today E55.9 - Vitamin D deficiency, unspecified Microalbumin, Random (w Creat) Today I10 - Essential (primary) hypertension Comprehensive [place]. Panel Fast Today I10 - Essential (primary) hypertension Referrals General Surgery Referral L72.9 - Follicular cyst of the skin and subcutaneous tissue, unspecified Medications: On Hold losartan Hold Comment: Doctor's Order 25 mg PO QAM 90 tabs 0RF Coding Level of Care Code Est Pt Level 4 (30095) Diagnoses Benign essential hypertension I10 Hypothyroidism, unspecified type E03.9 Hypothyroidism type: unspecified Subcutaneous cyst L72.9 Additional Codes JT-7 Assessment Billing - JT-7 Assessment Tool: JT-7 Assessment 70182 ([id number])
[2023-10-02 08:48] VITALS: BP 122/72; PULSE 56; O2SAT 96; BMI 32.4
== END 2023-10-02 09:20 | disposition home or self-care (01) ==
PROVIDERS: PCP Physician Assistant; Visit Provider Physician Assistant
DX: I10 Essential (primary) hypertension (principal); E03.9 Hypothyroidism, unspecified; L72.9 Follicular cyst of the skin and subcutaneous tissue, unspecified
CPT/HCPCS: 99214

== ENCOUNTER 2023-10-17 14:08 | Outpatient (AMB) | payer BC, SELFPAY ==
--- NOTE | 2023-10-17 14:16 | A.OFFVIS_ITS ---
Intake Vital Signs 3 10/17/23 14:21 Height 5 ft 4 in Weight 186 lb BMI 31.9 BP 118/82 Blood Pressure Location Lt brachial Position Sitting Intake Visit Reasons: Cyst~ Under lt breast Intake Note: Patient is seen in office for evaluation and treatment of a subcutaneous cyst underneath her left breast. Pt c/o: onset a year, has drain in the past and then comes back, not painful, currently not inflamed, no increase, uncomfortable District Operations Manager Required: No Accompanied by: Self / Same As Patient Allergies Seasonal Allergies Allergy (Unknown, Verified 10/17/23 14:20) Unknown Medication List - Last Reconciled 10/17/23 by Edward Sue MD cetirizine (Zyrtec) 10 mg PO DAILY PRN famotidine 20 mg PO BEDTIME levothyroxine 150 mcg PO QAM losartan 25 mg PO QAM pantoprazole 40 mg PO DAILY HPI HPI Comments 2 History of Present Illness0 Details 53-year-old female patient presenting wi th a previously infected epidermal inclusion cyst below the left breast. She 1st noted the cyst approximately a year ago and reports a previous infection at the site. She tried draining the cyst but was unsuccessful. The lesion is now much improved with no further pain but she continues to feel the original lump. She is requesting excision of the cyst to prevent further infection. [facility] Medical History Vitamin D deficiency Multinodular thyroid Hypothyroidism Surgical History Hx of colonoscopy History of esophagogastroduodenoscopy (EGD) History of dilatation and curettage Hx of tonsillectomy Hx of section Family History Father Lung cancer Mother Hypothyroidism Diabetes mellitus CAD (coronary artery disease) Brother CAD (coronary artery disease), Onset Age: 50 Diabetes mellitus Social History Housing: House Are you a primary rn progressive care to a significant other at home: No Do you presently have visiting nurse or other home services: No Alcohol intake: former Patient Tobacco Use Status: Former Tobacco user Quit Date: 2011 Tobacco use type: Cigarette Cigarette Packs Per Day: 1 Years Smoked: 20 e-Cigarette/Vaping Use: Never Used Second Hand Smoke Exposure: No service: No Current occupational status: employed 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 Lesion is nontender to palpation. Chest/axillae images: 2 1. Palpable cyst left chest wall Resp Effort & Inspection: normal respiratory effort, no audible wheezes, no cough and no respiratory distress Cardio Jugular venous distension: no JVD GI Inspection: Yes normal to inspection Skin Other: Warm, dry, no rash Neuro General: patient oriented x3 Extrem General: Yes no clubbing, cyanosis or edema Assessment & Plan Assessment & Plan (1) Subcutaneous cyst: Code(s): L72.9 - Follicular cyst of the skin and subcutaneous tissue, unspecified Plan 53-year-old female patient with an epidermal inclusion cyst of the chest wall left side below the left breast. I recommended an excision under local anesthesia as an office based procedure. After discussion of the procedure, risks, and alternatives, she consents to the surgery. Coding Level of Care Code New Pt Level 4 (62498) Diagnoses Subcutaneous cyst L72.9
[2023-10-17 14:21] VITALS: BP 118/82; BMI 31.9
== END 2023-10-17 14:31 | disposition home or self-care (01) ==
PROVIDERS: PCP Physician Assistant; Referring Provider Physician Assistant; Visit Provider Surgery
DX: L72.9 Follicular cyst of the skin and subcutaneous tissue, unspecified (principal)
CPT/HCPCS: 99204

== ENCOUNTER → 2023-10-17 14:08 | Outpatient (BNVA) | payer BC, SELFPAY | PROVIDERS: PCP Physician Assistant; Referring Provider Physician Assistant; Visit Provider Surgery ==

== ENCOUNTER 2023-11-30 15:08 | Outpatient (AMB) | payer BC, SELFPAY ==
[2023-11-30 15:27] VITALS: BP 149/79; PULSE 69; BMI 32.3
--- NOTE | 2023-11-30 15:27 | MHC.OFFVIS ---
Vital Signs 11/30/23 15:27 Height 5 ft 4 in Weight 188 lb BMI 32.3 BP 149/79 H Blood Pressure Location Lt brachial Position Sitting Pulse 69 Intake Visit Reasons: excision of left breast cyst Intake Note: Patient is seen for office procedure, excision of left breast cyst. Pt c/o: here for removal Account Liaison Required: No Fiberglass Boat Finisher: Fiberglass Boat Finisher Present Accompanied by: Self / Same As Patient Allergies Seasonal Allergies Allergy (Unknown, Verified 11/30/23 15:28) Unknown HPI Comments Details: 53-year-old female patient returning for excision of a cyst in the anterior left chest below the left breast. [facility] Medical History Vitamin D deficiency Multinodular thyroid Hypothyroidism Surgical History Hx of colonoscopy History of esophagogastroduodenoscopy (EGD) History of dilatation and curettage Hx of tonsillectomy Hx of section Family History Father Lung cancer Mother Hypothyroidism Diabetes mellitus CAD (coronary artery disease) Brother CAD (coronary artery disease), Onset Age: 50 Diabetes mellitus Social History Housing: House Are you a primary grounds caretaker to a significant other at home: No Do you presently have visiting nurse or other home services: No Alcohol intake: former Patient Tobacco Use Status: Former Tobacco user Quit Date: 2011 Tobacco use type: Cigarette Cigarette Packs Per Day: 1 Years Smoked: 20 e-Cigarette/Vaping Use: Never Used Second Hand Smoke Exposure: No service: No Current occupational status: employed 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 Resp Effort & Inspection: normal respiratory effort Office Procedures Excision Details: Preoperative diagnosis: Epidermal inclusion cyst left chest wall Postoperative diagnosis: Same Procedure: Excision of epidermal inclusion cyst left chest wall Surgeon: Edward Sue MD Health Promotion Officer: None Anesthesia: Lidocaine 1% with epinephrine Indications for procedure: Palpable cyst in the left chest below the left breast Operative findings: Epidermal inclusion cyst Specimen: Epidermal inclusion cyst left chest wall Estimated blood loss: Less than 2 mL Complications: None Procedure details: Patient was brought to the procedure room and placed in a supine position. Informed consent was confirmed. The site of surgery was confirmed by the patient in the left chest. The skin was prepped with Betadine and draped in a sterile fashion. Local anesthesia was then infiltrated around the cyst. Elliptical incision oriented transversely was then created with a scalpel. This was carried out through subcutaneous tissue and around the cyst wall. The lesion was passed off the table and sent to pathology for further examination. Skin was then closed using interrupted 4-0 nylon sutures. Sterile dressings consisting of 2 x 2 gauze and Tegaderm were then applied. The patient tolerated the procedure well. She was discharged to home in stable condition. 60281-dtolf/arms/legs 0.6-1cm Procedure code (CPT) selection complete Assessment & Plan Assessment & Plan (1) Subcutaneous cyst: Code(s): L72.9 - Follicular cyst of the skin and subcutaneous tissue, unspecified Category: Medical Plan 53-year-old female presenting with a subcutaneous cyst in the left chest wall. She underwent excision today and will return in 1 week for suture removal. Orders: Orders Surgical 11/30/23 L72.9 - Follicular cyst of the skin and subcutaneous tissue, unspecified Coding Level of Care Code Procedure Only Diagnoses Subcutaneous cyst L72.9 CPT Codes Trunk/Arms/Legs - CPT: 04249-tbemu/arms/legs 0.6-1cm ([id number])
== END 2023-11-30 15:51 | disposition home or self-care (01) ==
PROVIDERS: PCP Physician Assistant; Visit Provider Surgery
DX: L72.0 Epidermal cyst (principal)
CPT/HCPCS: 11402

== ENCOUNTER 2023-11-30 15:08 | Outpatient (REF) | payer BC, SELFPAY | END 2023-11-30 15:09 | disposition home or self-care (01) | LOC: HO.LAB 15:08 | PROVIDERS: PCP Physician Assistant; Visit Provider Surgery | DX: L72.8 Other follicular cysts of the skin and subcutaneous tissue (principal) | CPT/HCPCS: 11402; 88304 ==

== ENCOUNTER 2023-12-07 08:13 | Outpatient (AMB) | payer BC, SELFPAY ==
--- NOTE | 2023-12-07 08:16 | A.OFFVIS_ITS ---
Vital Signs 3 12/07/23 08:20 Height 5 ft 4 in Weight 191 lb BMI 32.8 BP 148/86 H Blood Pressure Location Rt brachial Position Sitting Pulse 58 Intake Visit Reasons: post excision of left breast cyst Intake Note: Patient is seen in office for post op assessment post excision of left breast cyst. Pt c/o: itch along incision. Three sutures removed without incident. Op:11/30/23 Financial Advisor Trainee Required: No Accompanied by: Self / Same As Patient Allergies Seasonal Allergies Allergy (Unknown, Verified 12/07/23 08:21) Unknown HPI Comments Details: 56-year-old female patient status post excision of a skin lesion below the left breast 1 week ago. She tolerated the procedure well and denies any ongoing symptoms. She returns today for suture removal. Pathology confirmed an epidermal inclusion cyst. [facility] Medical History Vitamin D deficiency Multinodular thyroid Hypothyroidism Surgical History Hx of removal of cyst (11/30/23) Hx of colonoscopy History of esophagogastroduodenoscopy (EGD) History of dilatation and curettage Hx of tonsillectomy Hx of section Family History Father Lung cancer Mother Hypothyroidism Diabetes mellitus CAD (coronary artery disease) Brother CAD (coronary artery disease), Onset Age: 50 Diabetes mellitus Social History Housing: House Are you a primary campground caretaker to a significant other at home: No Do you presently have visiting nurse or other home services: No Alcohol intake: former Patient Tobacco Use Status: Former Tobacco user Quit Date: 2011 Tobacco use type: Cigarette Cigarette Packs Per Day: 1 Years Smoked: 20 e-Cigarette/Vaping Use: Never Used Second Hand Smoke Exposure: No service: No Current occupational status: employed 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 Sutures removed and wounds found to be well healed. Chest/axillae images: 2 1. Incision site Assessment & Plan Assessment & Plan (1) Subcutaneous cyst: Code(s): L72.9 - Follicular cyst of the skin and subcutaneous tissue, unspecified Category: Medical Plan 53-year-old female patient status post excision of an epidermal inclusion cyst of the left chest. She tolerated the procedure well and her wounds are healing nicely. She should follow up as needed. Coding Level of Care Code Global (79202) Diagnoses Subcutaneous cyst L72.9
[2023-12-07 08:20] VITALS: BP 148/86; PULSE 58; BMI 32.8
== END 2023-12-07 08:41 | disposition home or self-care (01) ==
PROVIDERS: PCP Physician Assistant; Visit Provider Surgery
DX: L72.9 Follicular cyst of the skin and subcutaneous tissue, unspecified (principal)
CPT/HCPCS: 99024

== ENCOUNTER → 2023-12-07 08:13 | Outpatient (BNVA) | payer BC, SELFPAY | PROVIDERS: PCP Physician Assistant; Visit Provider Surgery ==

== ENCOUNTER 2024-03-27 15:32 | Outpatient (REF) | payer BC, SELFPAY ==
--- NOTE | ~2024-03-27 | MM_ITS ---
EXAMINATION: MM SCREENING DIGITAL BREAST TOMOSYNTHESIS, BILATERAL CLINICAL INFORMATION: Screening. Asymptomatic. COMPARISON: Mammography: Comparison is made with available priors TECHNIQUE: Digital breast mammography with tomosynthesis is performed in both the craniocaudal and mediolateral oblique views along with computer-aided detection (CAD). FINDINGS: There are scattered areas of fibroglandular density (ACR BI-RADS breast composition Category b). Bilateral scattered asymmetries are stable. There are no significant masses, abnormal calcifications, or other abnormalities. MM/MM tomosynthesis screening BI IMPRESSION: No mammographic evidence of malignancy. ASSESSMENT: BI-RADS BI-RADS 2 - Benign Findings RECOMMENDATION: Routine annual mammography screening. 1 year F/U This examination should not preclude the clinical evaluation of a suspicious palpable abnormality. This patient's information was entered into a reminder system with a target due date for their next mammogram. Electronically signed by: Sandy Frank DO 04/14/2024 09:47 AM EDT
== END 2024-03-27 15:33 | disposition home or self-care (01) ==
LOC: HO.MAMMO 15:32
PROVIDERS: PCP Physician Assistant; Visit Provider Physician Assistant
DX: Z12.31 Encounter for screening mammogram for malignant neoplasm of breast (principal)
CPT/HCPCS: 77063; 77067

== ENCOUNTER → 2024-03-27 16:00 | Outpatient (BNV) | payer BC, SELFPAY | PROVIDERS: PCP Physician Assistant; Visit Provider Internal Medicine | DX: Z12.31 Encounter for screening mammogram for malignant neoplasm of breast (principal) | CPT/HCPCS: 77063; 77067 ==

== ENCOUNTER 2024-06-27 16:00 | Outpatient (AMB) | payer BC, SELFPAY ==
--- NOTE | 2024-06-27 16:05 | A.OFFPC_ITS ---
Vital Signs 06/27/24 16:06 Height 5 ft 4 in Weight 171 lb 6 oz BMI 29.4 BP 130/72 Blood Pressure Location Lt brachial Position Sitting Pulse 74 Pulse Source Pulse Oximeter Pulse Oximetry (%) 99 Oxygen Delivery Method Room Air Intake Visit Reasons: pe Intake Note: Patient is here today for a physical. Podiatric Foot And Ankle Specialist Required: No Veterinary Inspector: Not Required per policy Accompanied by: Self / Same As Patient Allergies Seasonal Allergies Allergy (Unknown, Verified 06/28/24 14:44) Unknown Medication List - Last Reconciled 06/27/24 by Andrew Briones PA-C cetirizine (Zyrtec) 10 mg PO DAILY PRN famotidine 20 mg PO BEDTIME levothyroxine 150 mcg PO QAM losartan 25 mg PO QAM pantoprazole 40 mg PO DAILY semaglutide (weight loss) (Wegovy) 2.4 mg (0.75 mL) subcut QWEEK 4 weeks Tobacco use date assessed: 06/27/24 Dental Screening Dental Screen Date: 10/02/23 HPI pe HPI Details Patient is a 54-year-old female here today for a follow-up visit.? Patient has a past medical history significant for thyroid nodules, hypothyroidism, vitamin-D deficiency, obesity. -Concern--> she reports having lower ext remity cramping worse at night has gotten worse over last several months. She attributes this to often doing blood donations though has reduced the frequency Hypothyroidism: Patient follows endocrinology and most recent TSH has been stable on current dose of levothyroxine at 150 mcg.? Most recent TSH testing stable. .. GERD: Recently underwent EGD and a barium swallow. Does have severe GERD and a noted hiatal hernia. Since starting GLP 1 her GERD symptoms have essentially resolved. She is now only taking pantoprazole on as needed basis .. HTN: She is discontinue losartan and has been able to manage her blood pressure with diet and exercise. Has lost significant amount of weight since starting GLP 1. Blood pressure acceptable today in office. Obesity:? Has started GLP 1 (Wegovy) in his lost significant amount weight. She has benefitted from GLP 1 evidenced by blood pressure controlled now not having to take losartan. Her GI symptoms such as epigastric pain and reflux have essentially resolved. Her BMI is now 29.4. She reports her energy and eating habits are much improved. Vaccines:? Needs Tdap, UTD with COVID Vac, UTD with Flu , considering shingles vaccine Mammogram: - done in mar BIRADS 2. SAUSAGE TIER: Pap done in 2019 which was normal. Colonoscopy:? Done in February of 2023 normal repeat 10 years PFS Medical History Vitamin D deficiency Multinodular thyroid Hypothyroidism Surgical History Hx of removal of cyst (11/30/23) Hx of colonoscopy History of esophagogastroduodenoscopy (EGD) History of dilatation and curettage Hx of tonsillectomy Hx of section Family History Father Lung cancer Mother Hypothyroidism Diabetes mellitus CAD (coronary artery disease) Brother CAD (coronary artery disease), Onset Age: 50 Diabetes mellitus Social History Housing: House Are you a primary skin care therapist to a significant other at home: No Do you presently have visiting nurse or other home services: No Alcohol intake: former Patient Tobacco Use Status: Former Tobacco user Tobacco use type: Cigarette Cigarette Packs Per Day: 1 Years Smoked: 20 e-Cigarette/Vaping Use: Never Used Second Hand Smoke Exposure: No service: No Current occupational status: employed 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 1. Little interest or pleasure in doing things: not at all 2. Feeling down, depressed, or hopeless: not at all 3. Trouble falling or staying asleep, or sleeping too much: not at all 4. Feeling tired or having little energy: not at all 5. Poor appetite or overeating: not at all 6. Feeling bad about yourself - or that you are a failure or have let yourself or your family down: not at all 7. Trouble concentrating on things, such as reading the newspaper or watching television: not at all 8. Moving or speaking so slowly that other people could have noticed. Or the opposite - being so fidgety or restless that you have been moving around a lot more than usual: not at all 9. Thoughts that you would be better off or of hurting yourself in some way: not at all Total score: 0 Depression Screening Interpretation: Negative Depression Screening Done: Yes 05157 - PHQ-9 Billing: Yes Source: Developed by Drs. Mal Malhotra, Pat Machado, Rasheed Giang and colleagues, with an educational anna from [employer]. Thrive Questionnaire Date Thrive assessed: 06/27/24 I am a: Patient What is your living situation today?: I have a steady place to live Within the past 12 months, did the food you bought not last and you didn't have the money to get more?: Never true Within the past 12 months, did you worry whether your food would run out before you got money to buy more?: Never true Do you have trouble paying for medicines?: No Do you have trouble getting transportation to medical appointments?: No Do you have trouble paying your heating and electricity bill?: No Do you have trouble taking care of your child, family member or friend?: No Do you have trouble with day-to-day activities such as bathing, preparing meals, shopping, managing finances, etc.?: No Are you currently unemployed and looking for a job?: No Are you interested in more education?: No Please select the resources that you would like help with: None Currently or been in a relationship where the following occur: No concerns reported THRIVE Score: 0 AUDIT C Alcohol Use Questionnaire (AUDIT-C) 1. How often do you have a drink containing alcohol?: 2-4 times a month 2. How many drinks containing alcohol do you have on a typical day when you are drinking?: 1 or 2 3. How often do you have six or more drinks on one occasion?: Never Total Score: 2 JT-7 AMB Questionnaire JT-7 Date JT - 7 assessed: 06/27/24 Feeling nervous, anxious, or on edge: 0 = Not at all Not being able to stop or control worryin = Not at all Worrying too much about different things: 0 = Not at all Trouble relaxin = Not at all Being so restless that it is hard to sit still: 0 = Not at all Becoming easily annoyed or irritable: 2 = More than half the days Feeling afraid as if something awful might happen: 0 = Not at all Total JT-7 score (0-4 normal; 5-9 mild; 10-14 moderate; 15-21 severe): 2 Source: Developed by Drs. Mal Malhotra, Pat Machado, Rasheed Giang and colleagues, with an educational anna from [employer]. JT-7 Assessment Billing JT-7 Assessment Tool: JT-7 Assessment 24510 Review of Systems Const Denies body aches, Denies chills, Denies excessive sweating, Denies fatigue, Denies fever(s) and Denies headache(s) Eyes Denies blurry vision ENT Denies dysphagia, Denies vertigo, Denies dizziness, Denies headache(s), Denies hearing loss and Denies tinnitus Card Denies chest pain, Denies chest pain with activity, Denies syncope, Denies irregular heart rhythm and Denies dyspnea Resp Denies chest congestion, Denies cough, Denies hemoptysis, Denies dyspnea and Denies wheezing GI Denies abdominal pain, Denies melena, Denies hematochezia, Denies coffee ground emesis, Denies dysphagia, Denies diarrhea, Denies nausea and Denies vomiting Denies urinary frequency, Denies dysuria, Denies urinary hesitancy and Denies urinary urgency Musc Denies arthralgias, Denies limited range of motion, Denies muscle cramps and Denies muscle weakness Skin/Breast Denies rash and Denies skin ulcer Neuro Denies Abnormal speech present, Denies confusion, Denies vertigo, Denies dizziness, Denies syncope, Denies headache(s), Denies memory loss and Denies seizure-like activity Psych Denies anxiety, Denies confusion, Denies depression, Denies memory loss, Denies panic attacks and Denies paranoia Endo Denies excessive sweating, Denies fatigue, Denies flushing, Denies polydipsia and Denies polyuria Aller/Immun Denies wheezing Physical exam (Primary Care) Vital Signs: Last Vital Signs Pulse 74 06/27/24 16:06 BP 130/72 06/27/24 16:06 Pulse Ox 99 06/27/24 16:06 Oxygen Delivery Method Room Air 06/27/24 16:06 BMI result Body Mass Index 29.4 Tobacco/Smoking Status: Tobacco use Status Tobacco use date assessed 06/27/24 06/27/24 16:11 Patient Tobacco Use Status Former Tobacco user 06/27/24 16:11 Tobacco use type Cigarette 06/27/24 16:11 e-Cigarette/Vaping Use Never Used 06/27/24 16:11 PHQ-9: PHQ-9 Score PHQ-9: Total score 0 06/27/24 16:17 Depression Screening Interpretation: Negative Thrive Assessment: Date of Thrive Assessment Date Thrive assessed 06/27/24 06/27/24 16:11 Currently or been in a relationship where the following occur: No concerns reported Const General: cooperative, comfortable, no acute distress, alert and awake; No confusion Orientation/consciousness: oriented to person, oriented to place, patient oriented x3 and No confusion HENMT Head: Yes normocephalic Ears: external ears normal and TM's normal bilaterally Face and sinus: No sinus tenderness Mouth: Normal oral and palatal mucosa present and tongue normal Teeth and gingiva: dentition normal and gingiva normal Throat: Yes posterior oropharynx normal, Yes tonsils normal and Yes uvula midline Eyes Conjunctivae: conjunctivae normal Sclerae: sclerae normal Pupils: Equal, round and reactive pupils present EOM: EOMs intact bilaterally Direct Ophthalmoscopy: No no photophobia Neck Neck: Yes no lymphadenopathy, No tender and Yes no JVD Thyroid: Thyroid normal Carotids: no bruits Chest Chest palpation & inspection: no tenderness Resp Effort & Inspection: normal respiratory effort, no audible wheezes, not labored and no stridor Auscultation: no crackles, no rales, no rhonchi and no wheezes Cardio Jugular venous distension: no JVD Rate: regular rate, not bradycardic and not tachycardic Rhythm: regular rhythm Bruits: no carotid bruits Peripheral pulses: Peripheral pulses 2+ throughout GI Inspection: Yes normal to inspection, No abdominal wall ecchymosis and No visible herniation Palpation (GI): Soft to palpation, nontender, no guarding, not rigid and No hepatosplenomegaly present Auscultation: normoactive bowel sounds General: Yes no CVA tenderness Back/Spine/Pelvis Back: no CVA tenderness and No back tenderness Cervical Spine: cervical ROM normal Thoracic/Lumbar Spine: thoracic and lumbar spine normal to inspection, straight leg raise negative bilaterally, No thoraco-lumbar ROM limited and No lumbar spinal tenderness Skin Lesions: no lesions Rashes: no rashes Wounds: no wounds Neuro General: oriented to person, oriented to place, patient oriented x3, CN's II-XI intact bilaterally and No confusion Cranial nerves: Yes Equal, round and reactive pupils present and Yes Normal accommodation reflex present Cognition (Neuro): normal cognition Speech: No Abnormal speech present Gait exam (Neuro): Normal gait present Motor exam (neuro): 5/5 motor strength present throughout Extrem Right upper extremity: full ROM; no cyanosis Left upper extremity: full ROM; no cyanosis Right lower extremity: no edema Left lower extremity: no edema Psych Appearance: grossly normal Mental Status: mental status grossly normal Affect: normal affect Attitude: cooperative Thought process: Normal thought process present Coding Level of Care Code Est Pt Prev Care 40-64y(63705) Diagnoses Annual physical exam Z00.00 Hypothyroidism, unspecified type E03.9 Hypothyroidism type: unspecified Varicose veins of both lower extremities with pain I83.813 Laterality: bilateral Varicose vein complication: pain Postprandial epigastric pain R10.13 Additional Codes PHQ-9 - 70399 - PHQ-9 Billing: Yes ([id number]) JT-7 Assessment Billing - JT-7 Assessment Tool: JT-7 Assessment [id number] ([id number]) Assessment & Plan Assessment & Plan (1) Annual physical exam: Code(s): Z00.00 - Encounter for general adult medical examination without abnormal findings Category: Medical Plan: As per HPI (2) Hypothyroidism: Code(s): E03.9 - Hypothyroidism, unspecified Category: Medical Qualifiers: Hypothyroidism type: unspecified Qualified Code(s): E03.9 - Hypothyroidism, unspecified Plan: Patient continues on stable dose of levothyroxine at 150 mcg. She has lost weight since starting GLP 1 and feels great. (3) Varicose vein of leg: Code(s): I83.90 - Asymptomatic varicose veins of unspecified lower extremity Category: Medical Qualifiers: Laterality: bilateral Varicose vein complication: pain Qualified Code(s): I83.813 - Varicose veins of bilateral lower extremities with pain Plan: Patient does report having bilateral lower extremity cramping worse at night. She does have notable spider varicosities in her lower extremities that she would like evaluated and per perhaps removed. (4) Postprandial epigastric pain: Code(s): R10.13 - Epigastric pain Category: Medical Plan: Patient reports her postprandial epigastric pain let related to her gastritis and hiatal hernia has resolved since starting GLP 1 in losing weight. Orders: Orders Vitamin D 25-OH Total Today E55.9 - Vitamin D deficiency, unspecified Microalbumin, Random (w Creat) Today I10 - Essential (primary) hypertension Comprehensive [place]. Panel Fast Today Z13.1 - Encounter for screening for diabetes mellitus TSH reflex Free T4 Today E03.9 - Hypothyroidism, unspecified Complete Blood Count no Diff Today I10 - Essential (primary) hypertension Magnesium Today K25.7 - Chronic gastric ulcer without hemorrhage or perforation Referrals Vascular Surgery Referral I83.90 - Asymptomatic varicose veins of unspecified lower extremity Medications: New magnesium oxide 400 mg PO DAILY 90 caps 1RF E03.9 - Hypothyroidism, unspecified Changed From semaglutide (weight loss) (Wegovy) 2.4 mg (0.75 mL) subcut QWEEK 4 weeks 3 mL 3RF E03.9 - Hypothyroidism, unspecified, E66.09 - Other obesity due to excess calories, I10 - Essential (primary) hypertension, Z68.37 - Body mass index [BMI] 37.0-37.9, adult To semaglutide (weight loss) (Wegovy) 2.4 mg (0.75 mL) subcut QWEEK 11 weeks 8.25 mL 1RF E03.9 - Hypothyroidism, unspecified, E66.09 - Other obesity due to excess calories, I10 - Essential (primary) hypertension, Z68.37 - Body mass index [BMI] 37.0-37.9, adult Discontinued losartan Discontinued Reason: Doctor's Order 25 mg PO QAM 90 tabs 0RF
[2024-06-27 16:06] VITALS: BP 130/72; PULSE 74; O2SAT 99; BMI 29.4
== END 2024-06-27 16:44 | disposition home or self-care (01) ==
PROVIDERS: PCP Physician Assistant; Visit Provider Physician Assistant
DX: Z00.00 Encounter for general adult medical examination without abnormal findings (principal); E03.9 Hypothyroidism, unspecified; I83.813 Varicose veins of bilateral lower extremities with pain; R10.13 Epigastric pain

== ENCOUNTER → 2024-06-27 16:00 | Outpatient (BNVA) | payer BC, SELFPAY | PROVIDERS: PCP Physician Assistant; Visit Provider Physician Assistant | DX: Z00.01 Encounter for general adult medical examination with abnormal findings (principal); E03.9 Hypothyroidism, unspecified; K21.9 Gastro-esophageal reflux disease without esophagitis; I83.813 Varicose veins of bilateral lower extremities with pain; R10.13 Epigastric pain; I10 Essential (primary) hypertension; E66.9 Obesity, unspecified; Z68.29 Body mass index [BMI] 29.0-29.9, adult; Z79.899 Other long term (current) drug therapy | CPT/HCPCS: 96127 ==

== ENCOUNTER 2024-06-28 14:36 | Outpatient (AMB) | payer BC, SELFPAY ==
--- NOTE | 2024-06-28 14:43 | MHC.OFFVIS ---
Vital Signs 06/28/24 14:44 Height 5 ft 4 in Weight 170 lb 3.15 oz BMI 29.2 BP 126/86 Blood Pressure Location Rt brachial Position Sitting Pulse 66 Pulse Source Pulse Oximeter Pulse Oximetry (%) 96 Oxygen Delivery Method Room Air Intake Visit Reasons: 6 month follow up R/S from Mar Intake Note: Gay presents in office today for a scheduled ~8-9 mos FUV. CC; Any changes or new sx since last visit? No concerns per pt currently. Pt states that everything GI freed has IMPROVED since beginning Wegovy. Any labs or diagnostics since last visit? ?None Pharmacy verified? [facility] Nurse Transplant Required: No Allergies Seasonal Allergies Allergy (Unknown, Verified 06/28/24 14:44) Unknown HPI HPI 6 month follow up R/S from Mar: Details: LAST VISIT: Postprandial epigastric pain Gastric erosions GERD (gastroesophageal reflux disease) IBS (irritable bowel syndrome) Plan Continue avoiding dietary triggers and late night snacking. Staying upright for minimum 3 hours after meals discussed with patient. Patient will stop taking omeprazole and start pantoprazole. Continue low FODMAP diet to help with bloating. Patient was encouraged to increase fluid intake and activity to promote better bowel motility. Barium swallow showed significant gastric reflux and mild esophageal dysmotility that could be caused by reflux. Patient will call the office if pantoprazole will not work. I will see her in 6 months, sooner on as needed basis. Patient is agreeable to this plan and verbalizes understanding of instructions. She was given the opportunity to ask questions and all questions answered. ? Thank you for allowing me to participate in her care Medications New pantoprazole take one tablet half an hour before breakfast 40 mg PO DAILY 30 tabs 2RF K21.9 Discontinued omeprazole Take one capsule daily 30 minutes before breakfast Discontinued Reason: Doctor's Order 20 mg PO DAILY 60 days 60 caps 2RF K25.9 TODAY'S VISIT Patient is here today for follow-up. Patient reports that she has been feeling better. Patient was taking pantoprazole and states that she was feeling well when taking it. Patient started Wegovy in February of this year. Since patient started she has been feeling very well. Besides besides losing 18 lb patient reports to be feeling significantly better. She no longer complains of epigastric pain postprandially. Does not need to use PPI anymore. Patient denies any nausea or vomiting. Patient should stay on this medication as not only helps her with weight control but also it seems to be working for her as her reflux is completely gone. Patient had upper GI series done in the past and it showed significant reflux with esophageal dysmotility. Patient is following FODMAP diet and avoiding gluten and lactose. [facility] Medical History Vitamin D deficiency Multinodular thyroid Hypothyroidism Surgical History Hx of removal of cyst (11/30/23) Hx of colonoscopy History of esophagogastroduodenoscopy (EGD) History of dilatation and curettage Hx of tonsillectomy Hx of section Family History Father Lung cancer Mother Hypothyroidism Diabetes mellitus CAD (coronary artery disease) Brother CAD (coronary artery disease), Onset Age: 50 Diabetes mellitus Social History Housing: House Are you a primary care management associate to a significant other at home: No Do you presently have visiting nurse or other home services: No Alcohol intake: former Patient Tobacco Use Status: Former Tobacco user Tobacco use type: Cigarette Cigarette Packs Per Day: 1 Years Smoked: 20 e-Cigarette/Vaping Use: Never Used Second Hand Smoke Exposure: No service: No Current occupational status: employed 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[employer] ) Cognitive needs: No Hearing needs: No Vision needs: Yes (glasses) Review of Systems Const Denies weight gain and Denies weight loss ENT Reports no additional complaints, Denies dysphagia and Denies odynophagia Card Reports no additional complaints Resp Reports no additional complaints GI Denies abdominal pain, Denies belching, Denies melena, Denies bloating, Denies change in bowel habits, Denies dysphagia, Denies excessive flatus, Denies dyspepsia, Denies heartburn, Denies diarrhea, Denies loose stools, Denies nausea, Denies odynophagia and Denies vomiting Musc Reports no additional complaints Neuro Reports no additional complaints Psych Reports no additional complaints Endo Reports no additional complaints Physical Exam Vital Signs: Last Vital Signs Pulse 66 06/28/24 14:44 BP 126/86 06/28/24 14:44 Pulse Ox 96 06/28/24 14:44 Oxygen Delivery Method Room Air 06/28/24 14:44 BMI result Body Mass Index 29.2 Const General: healthy appearing, no acute distress and well developed Nutritional Appearance: well nourished Orientation/consciousness: patient oriented x3 Resp Effort & Inspection: normal respiratory effort, able to speak in complete sentences, no tracheal deviation and symmetric chest movement Auscultation: clear to auscultation bilaterally Cardio Rate: regular rate GI Inspection: Yes normal to inspection and No distended Palpation (GI): Soft to palpation, not firm, nontender and No hepatosplenomegaly present Auscultation: normal bowel sounds General: Yes no CVA tenderness Back/Spine/Pelvis Back: no CVA tenderness Skin General skin exam: elasticity normal, turgor normal and dry skin Neuro General: patient oriented x3 Psych Appearance: grossly normal Mental Status: mental status grossly normal Assessment & Plan Assessment & Plan (1) Postprandial epigastric pain: Code(s): R10.13 - Epigastric pain Category: Medical (2) Gastric erosions: Code(s): K25.9 - Gastric ulcer, unspecified as acute or chronic, without hemorrhage or perforation Category: Medical Qualifiers: Gastric ulcer chronicity: chronic Qualified Code(s): K25.7 - Chronic gastric ulcer without hemorrhage or perforation (3) GERD (gastroesophageal reflux disease): Code(s): K21.9 - Gastro-esophageal reflux disease without esophagitis Qualifiers: Esophagitis presence: esophagitis presence not specified Qualified Code(s): K21.9 - Gastro-esophageal reflux disease without esophagitis (4) IBS (irritable bowel syndrome): Code(s): K58.9 - Irritable bowel syndrome, unspecified Qualifiers: Irritable bowel syndrome type: without diarrhea Qualified Code(s): K58.9 - Irritable bowel syndrome, unspecified Plan Patient should continue GLP 1 as not only it helps her lose weight but also controlling her acid reflux. Taking PPI for menopausal patient could lead to osteoporosis and we can avoid it. GLP 1 can also help with liver function, fat content and distribution. Continue avoiding dietary triggers and late night snacking. Continue low FODMAP diet. Follow-up in the office in 6 months, sooner on as needed basis. She is agreeable to this plan and verbalizes understanding of instructions. She was given the opportunity to ask questions and all questions answered. Thank you for allowing me to participate in her care Coding Level of Care Code Est Pt Level 4 (10660) Complex EM visit Add On G2211 Diagnoses Postprandial epigastric pain R10.13 Chronic gastric erosion K25.7 Gastric ulcer chronicity: chronic Gastroesophageal reflux disease, unspecified whether esophagitis present K21.9 Esophagitis presence: esophagitis presence not specified Irritable bowel syndrome without diarrhea K58.9 Irritable bowel syndrome type: without diarrhea Time Spent (min) 35 Comment 20 minutes spent with patient and additional 15 minutes spent reviewing her records
[2024-06-28 14:44] VITALS: BP 126/86; PULSE 66; O2SAT 96; BMI 29.2
== END 2024-06-28 15:24 | disposition home or self-care (01) ==
PROVIDERS: PCP Physician Assistant; Visit Provider Nurse Practitioner Family
DX: R10.13 Epigastric pain (principal); K25.7 Chronic gastric ulcer without hemorrhage or perforation; K21.9 Gastro-esophageal reflux disease without esophagitis; K58.9 Irritable bowel syndrome, unspecified
CPT/HCPCS: 99214

== ENCOUNTER → 2024-06-28 14:36 | Outpatient (BNVA) | payer BC, SELFPAY | PROVIDERS: PCP Physician Assistant; Visit Provider Nurse Practitioner Family ==

== ENCOUNTER 2024-07-01 07:54 | Outpatient (REF) | payer BC, SELFPAY ==
[2024-07-01 09:20] LABS: Hematocrit 39.2 % (37.0-47.0); Mean Corpuscular HGB Conc 33.2 g/dl (31.0-35.0); Mean Corpuscular Hemoglobin 29.3 pg (27.0-33.0); Mean Corpuscular Volume 88.5 fL (80.0-98.0); Mean Platelet Volume 11.2 fL (9.4-12.3); Platelet Count 209 X10*3/uL (160-400); Red Blood Count 4.43 X10*6/uL (4.20-5.50); Red Cell Distribution Width 13.2 % (11.0-16.0); White Blood Count 5.4 X10*3/uL (4.8-10.8)
[2024-07-01 09:47] LABS: Alanine Aminotransferase 34 U/L (0-31); Albumin Level 4.1 g/dL (3.5-5.0); Alkaline Phosphatase 54 U/L (39-117); Anion Gap 12 (12-20); Aspartate Amino Transferase 23 U/L (5-31); Bilirubin Total 0.5 mg/dL (0.0-1.0); Blood Urea Nitrogen 12 mg/dL (9-16); Calcium 8.9 mg/dL (8.4-10.2); Carbon Dioxide 26 mmol/L (22-29); Chloride 107 mmol/L (96-108); Estimated Glomerular Filt Rate > 60; Glucose Fasting 76 mg/dL (60-99); Magnesium 2.2 mg/dL (1.6-2.6); Potassium 3.9 mmol/L (3.3-5.1); Sodium 141 mmol/L (135-145); Total Protein 6.7 g/dL (6.5-8.0)
[2024-07-01 09:54] LABS: Creatinine Urine 267.71 mg/dL; Microalbum/Creatinine Ratio Ur 5.9 ug/mg cr (<30)
[2024-07-01 10:12] LABS: TSH reflex Free T4 0.02 uIU/mL (0.32-4.0); Vitamin D 25-OH Total 32.2 ng/mL (>30)
[2024-07-01 11:11] LABS: Free T4 (Free Thyroxine) 1.36 ng/dL (0.71-1.85)
== END 2024-07-01 07:55 | disposition home or self-care (01) ==
LOC: HO.LAB 07:54
PROVIDERS: PCP Physician Assistant; Visit Provider Physician Assistant
DX: I10 Essential (primary) hypertension (principal); E03.9 Hypothyroidism, unspecified; E55.9 Vitamin D deficiency, unspecified; K25.7 Chronic gastric ulcer without hemorrhage or perforation
CPT/HCPCS: 36415; 80053; 82043; 82306; 82570; 83735; 84439; 84443; 85027

== ENCOUNTER 2024-07-15 09:17 | Outpatient (AMB) | payer BC, SELFPAY ==
--- NOTE | 2024-07-15 09:21 | A.OFFVIS_ITS ---
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 Stattes she has had them for many years but the past few months they have started to become sore and painful. States it feels like bruising. Works on feet. 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 Complaints include pain, slight swelling of lower extremities, cramping, fatigue, and heaviness of the lower extremities. It has been affecting their daily activities including working, standing, and physical activity. It is noted more so in right leg. She is a former smoker and is not a diabetic. Patient denies any previous venous surgery or injections. Patient denies any history of DVT/ PE. Patient denies any history of phlebitis. Trial of compression includes - intermittent compression stockings They now present for vascular evaluation regarding their varicose veins. [facility] Medical History Vitamin D deficiency Multinodular thyroid Hypothyroidism Surgical History Hx of removal of cyst (11/30/23) Hx of colonoscopy History of esophagogastroduodenoscopy (EGD) History of dilatation and curettage Hx of tonsillectomy Hx of section Family History Father Lung cancer Mother Hypothyroidism Diabetes mellitus CAD (coronary artery disease) Brother CAD (coronary artery disease), Onset Age: 50 Diabetes mellitus Social History Housing: House Are you a primary housekeeper caregiver to a significant other at home: No Do you presently have visiting nurse or other home services: No Alcohol intake: former Patient Tobacco Use Status: Former Tobacco user Tobacco use type: Cigarette Cigarette Packs Per Day: 1 Years Smoked: 20 e-Cigarette/Vaping Use: Never Used Second Hand Smoke Exposure: No service: No Current occupational status: employed Current occupation: [employer] P[employer] at [employer] ( [employer] ) Cognitive needs: No Hearing needs: No Vision needs: Yes (glasses) Review of Systems Const Reports as per HPI and Denies weakness ENT Reports Normal hearing present and Denies dizziness Card Reports as per HPI, Denies chest pain, Denies chest pain at rest, Denies chest pain with activity, Denies dyspnea and Denies dyspnea on exertion Resp Reports as per HPI, Denies cough, Denies dyspnea and Denies dyspnea on exertion GI Reports as per HPI, Denies abdominal pain, Denies nausea and Denies vomiting Musc Denies numbness Skin/Breast Reports as per HPI, Denies erythema and Denies wounds Neuro Reports Normal hearing present, Denies dizziness, Denies numbness, Denies Sensory deficit (Neuro) and Denies weakness Psych Reports no additional complaints Endo Reports no additional complaints Physical Exam Vital Signs: BMI result Body Mass Index 29.2 Const General: healthy appearing and no acute distress Orientation/consciousness: patient oriented x3 HEENT Head: Yes normal to inspection Ears: hearing grossly normal bilaterally Mouth: Normal oral and palatal mucosa present Resp Effort & Inspection: normal respiratory effort and able to speak in complete sentences Auscultation: clear to auscultation bilaterally Cardio Jugular venous distension: no JVD Rate: regular rate Rhythm: regular rhythm Heart sounds: S1 normal heart sound present and S2 normal heart sound present Bruits: no abdominal aortic bruits, no carotid bruits, no femoral bruits and no renal bruits Peripheral pulses: Peripheral pulses 2+ throughout GI Inspection: Yes normal to inspection Palpation (GI): No Abdominal aortic bruit present Skin General skin exam: no rashes or lesions noted Wounds: no wounds Hair: normal Neuro General: patient oriented x3 Cranial nerves: Yes Normal hearing present Cognition (Neuro): normal cognition Gait exam (Neuro): Normal gait present Motor exam (neuro): 5/5 motor strength present throughout Sensory Exam: No Sensory deficit (Neuro) Extrem Other: Right lower extremity: spider veins throughout the lower leg and upper thigh. Small tortuosity noted over the tibial process. Trace peripheral edema noted. Palpable DP pulse. Left lower extremity: spider veins throughout the lower leg. Trace peripheral edema noted. Palpable DP pulse. CEAP: C - 3 E - primary A - superficial P - reflux General: Yes normal to inspection, Yes full ROM, Yes capillary refill normal and Yes normal gait Assessment & Plan Assessment & Plan (1) Varicose veins of both lower extremities with inflammation: Code(s): I83.11 - Varicose veins of right lower extremity with inflammation; I83.12 - Varicose veins of left lower extremity with inflammation Category: Medical Plan: Gay is presenting today as a referral from her PCP for varicose veins, worsening. In short, the patient has evidence of venous insufficiency. I have discussed the pathophysiology with the patient. In addition I have provided informational material regarding venous disease to the patient. We have discussed conservative measures including compression, elevation, and exercise. I have also provided a handout regarding appropriate use of compression stockings and where to purchase good compression stockings as well. I have taken the liberty of ordering venous insufficiency testing with the patient. They will follow up with me after testing. The patient had an opportunity to ask questions regarding the treatment plan. All questions were answered. Imaging studies, laboratory studies and physical exam results were discussed and reviewed in detail. No major barriers to understanding were identified. The patient expressed understanding and agreement with the above treatment plan. The patient is aware they should c ontact our office by phone for worsening of the current condition or the appearance of new symptoms. Thank you for allowing me to participate in the vascular care of this patient. If you have any questions or concerns regarding the treatment for the above condition please do not hesitate to contact me. The office telephone contact is [phone]. This note is constructed using voice recognition software. While every effort has been made to ensure accuracy, medical laboratory assistant errors may have been included. Thank you for allowing me to participate in the care of your patient. Yours sincerely, SRAVANI James Orders: Orders US venous duplex LE BI 1 Week I83.11 - Varicose veins of right lower extremity with inflammation, I83.12 - Varicose veins of left lower extremity with inflammation Coding Level of Care Code New Pt Level 4 (88305) Diagnoses Varicose veins of both lower extremities with inflammation I83.11; I83.12
[2024-07-15 09:24] VITALS: BMI 29.2
== END 2024-07-15 09:54 | disposition home or self-care (01) ==
PROVIDERS: PCP Physician Assistant; Visit Provider Physician Assistant Surgical
DX: I83.11 Varicose veins of right lower extremity with inflammation (principal); I83.12 Varicose veins of left lower extremity with inflammation
CPT/HCPCS: 99204

== ENCOUNTER → 2024-07-15 09:17 | Outpatient (BNVA) | payer BC, SELFPAY | PROVIDERS: PCP Physician Assistant; Visit Provider Physician Assistant Surgical ==

== ENCOUNTER 2024-08-05 08:20 | Outpatient (REF) | payer BC, SELFPAY ==
--- NOTE | ~2024-08-05 | US_ITS ---
CLINICAL HISTORY: I83.11 - Varicose veins of right lower extremity with inflammation Venous duplex ultrasound bilateral lower extremity Superficial venous reflux evaluation. Comparison: None Findings: The visualized deep veins are fully compressible with normal Doppler color flow and spectral tracings. Mild reflux along the right popliteal artery measuring up to 2 seconds. No popliteal cyst. Superficial venous reflux evaluation: Right great saphenous vein: Saphenofemoral junction: 0.7 cm, no reflux Proximal thigh: 0.3 cm, 2.7 seconds reflux Mid thigh: 0.1 cm, no reflux Above knee: 0.2 cm, no reflux [id number], the vessel measures proximally 2 mm and demonstrates no reflux. Right small saphenous vein: Normal without reflux. Left great saphenous vein: Saphenofemoral junction: 0.8 cm, no reflux Proximal thigh: 0.4 cm, no reflux Mid thigh: 0.3 cm, 2.8 seconds of reflux Above knee: 0.2 cm no reflux Mid calf: 0.2 cm and 2.6 seconds of reflux, otherwise no below knee reflux. Small saphenous vein on the left colon measures between 0.2 and 0.3 mm and is without reflux. IMPRESSION: 1. Negative for bilateral lower extremity deep vein thrombosis. 2. Mild superficial venous reflux as detailed This document has been electronically signed by: Francisco Hare MD on 08/06/2024 13:05:12
--- OUTSIDE RECORDS SUMMARY | 2024-08-05 08:29 | XMS_ITS | Data Portability ---
Author Organization [facility], , [facility] Address [address] [place] [address] Care Team Providers Care Slubber Runner Name Role Phone KIZZY BEAVERS Primary Care Provider [phone] Assessment No assessment recorded. Plan of Treatment Reminders Order Date Submit Date Provider Last Modified By Organization Details Last Modified Time Details Appointments None recorded. Lab BMP, serum or plasma 2016 017 l[place]ord 6 [facility], [address] [place], [address], 8 09:02:34 Referral None recorded. Procedures None recorded. Surgeries None recorded. Imaging US, echocardiog vince - 46yo F with syncopal episode and moderate cardiomegal y on CXR. 03/01/17 8:30 AM arrive 8:15. no prep. pt aware 2016 017 [facility], [address] [place], [address], 7 11:36:02 holter monitor - Holter Monitor applied as per protocol. Reviewed recording of events in diary and placement of electrodes with patient. Instructed to return in 24 hours for removal. 2016 017 CLAUDE [facility], [address] [place], [address], 7 11:58:33 holter monitor - Holter Monitor removed as per protocol. Account Number [id number] 2016 017 [facility]ally [facility], [address] [place], [address], 7 18:56:59 Medication Orders None recorded. Patient TargetsNo targets recorded. Patient Instructions Encounter Date Encounter Id Patient Instructions Last Modified By Organization Details Last Modified Time 02/08/2017 [id number] After a discussi on of treatment options, which included consideration of best practices, patient preferences, and the patient? s individual lifestyle and treatment goals, as well as consideration and attempted mitigation of any barriers to meeting the patient? s goals, the following treatment plan and objectives were adopted: - BP at goal. continue current medications - check BP a few times a week at work and record - follow up if consistently over 140/90 - continue working on regular exercise and balanced diet - medical management in june with labs before [email or web address] Not available 02/08/2017 15:28:22 02/23/2017 [id number] After a discussi on of treatment options, which included consideration of best practices, patient preferences, and the patient? s individual lifestyle and treatment goals, as well as consideration and attempted mitigation of any barriers to meeting the patient? s goals, the following treatment plan and objectives were adopted: - we discussed syncope - schedule heart monitor - you will be called to schedule an ultrasound of your heart (echo) - work on staying hydrated - check BP daily and record - get back to your regular diet - 911 for chest pain, sob, loss of consiousness. okay to call the office with questions [email or web address] Not available 02/23/2017 17:42:34 Reason for Referral None Reported. Results Created Date Observation Date Name Description Value Unit Range Abnormal Flag Note LastModifiedBy Organization Detail LastModifiedTime 06/26/20 17 06/26/2017 TSH, serum or plasm a TSH 1.02 uIU/m L 0.50-6 .00 The Ameri can Colle ge of Endoc rinol ogy and Ameri can Thyro id Assoc iatio n recom mend goal TSH value s betwe en 0.4-4 .0 mIU/m L. Not Available [address], [place], [address], 06/26/2017 12:09:15 06/26/20 17 06/26/2017 lipid panel , serum cholesterol 120 mg/dL <200 mg/dl Mac able 200-2 39 mg/dl Borde rline High >240 mg/dl High Not Available [address], [address], 06/26/2017 13:09:32 06/26/20 17 06/26/2017 lipid panel , serum triglyceride s 30 mg/dL <150 mg/dL Kate l 150-1 99 mg/dL Borde rline High 200-4 99 mg/dL High >500 mg/dL Very High Not Available [address], [address], 06/26/2017 13:09:32 06/26/20 17 06/26/2017 lipid panel , serum direct HDL 49 mg/dL Not Available [address], [address], 06/26/2017 13:09:32 06/26/20 17 06/26/2017 LDL, colton daniels , serum (OBS) LDL - calculated 65.0 RISK CATEG ORY LDL GOAL _ CHD or CHD Risk Equiv alent s <100 mg/dl (10-y ear risk >20%) 2+ Risk Facto rs <130 mg/dl (10-y ear risk <= 20%) 0-1 Risk Facto r??? <160 mg/dl ??? Almos t all peopl e with 0-1 risk facto r have a 10 year risk <10%, thus 10 year risk asses ment in peopl e with 0-1 risk facto r is not walter rneay. Not Available [address], [address], 06/26/2017 13:09:33 06/26/20 17 06/26/2017 BMP, serum or plasm a glucose 92 mg/dL 70-100 Not Available [address], [address], 06/26/2017 16:44:28 06/26/20 17 06/26/2017 BMP, serum or plasm a BUN 19 mg/dL 7-18 high Not Available [address], [address], 06/26/2017 16:44:28 06/26/20 17 06/26/2017 BMP, serum or plasm a creatinine 0.8 mg/dL 0.8-1. 3 Not Available [address], [address], 06/26/2017 16:44:28 06/26/20 17 06/26/2017 BMP, serum or plasm a B/C 23.8 ratio Not Available [address], [address], 06/26/2017 16:44:28 06/26/20 17 06/26/2017 BMP, serum or plasm a GFR -non 85.8 mL/mi n Recom luz d GFR by the Natio nal Kidne y Found ation >60 mL/mi n/1.7 3m2 - Kate l <60 mL/mi n/1.7 3m2 - Chron ic Kidne y Disea se <15 mL/mi n/1.7 3m2 - Kidne y Failu re Not Available [address], [address], 06/26/2017 16:44:28 06/26/20 17 06/26/2017 BMP, serum or plasm a GFR - if 98.6 mL/mi n For Afric an Ameri can patie nts: Resul ts Multi plied by 1.21 Not Available [address], [address], 06/26/2017 16:44:28 06/26/20 17 06/26/2017 BMP, serum or plasm a sodium 143 mmol/ L 136-14 5 Not Available [address], [address], 06/26/2017 16:44:28 06/26/20 17 06/26/2017 BMP, serum or plasm a potassium 3.8 mmol/ L 3.5-5. 1 Not Available [address], [address], 06/26/2017 16:44:28 06/26/20 17 06/26/2017 BMP, serum or plasm a chloride 104 mmol/ L 96-107 Not Available [address], [address], 06/26/2017 16:44:28 06/26/20 17 06/26/2017 BMP, serum or plasm a anion gap 13.2 5.0-15 .0 Not Available [address], [address], 06/26/2017 16:44:28 06/26/20 17 06/26/2017 BMP, serum or plasm a CO2 26 mmol/ L 21-32 Not Available [address], [address], 06/26/2017 16:44:28 06/26/20 17 06/26/2017 BMP, serum or plasm a calcium 8.4 mg/dL 8.5-10 .3 low JEFF=V erifi ed by Shankar pabon Not Available [address], [address], 06/26/2017 16:44:28 08/17/19 18 08/17/2017 rapid flu (A+B) flu A POC INVALI D negative Not Available [address], [address], 08/17/2017 14:44:12 08/17/19 18 08/17/2017 rapid flu (A+B) flu B POC INVALI D negative Not Available [address], [address], 08/17/2017 14:44:12 08/17/19 18 08/17/2017 rapid flu (A+B) flu A POC NEGATI VE Not Available [address], [address], 08/17/2017 15:10:49 08/17/19 18 08/17/2017 rapid flu (A+B) flu B POC NEGATI VE Not Available [facility] [address], [place], [address], 08/17/2017 15:10:49 02/24/20 17 elect rocar diogr am No observ ation record ed. [email or web address] Not Available 2016 17:36:54 02/24/20 17 02/19/2017 CT, head + brain , w/o contr ast No observ ation record ed. BARCODE Not Available 2016 18:38:32 02/24/20 17 02/19/2017 elect rocar diogr am No observ ation record ed. BARCODE Not Available 2016 18:38:33 02/24/20 17 02/19/2017 XR, chest , 1 view No observ ation record ed. BARCODE Not Available 2016 18:38:33 03/01/20 17 03/01/2017 US, echoc ardio gram, trans thora cic, compl ete [facility] [address] [place] [address] Phone: Echoca rdiogr am Pat.Na me: GAY REN Pat.ID : [id number] St.Sánchez e: 03/01/20 17 Refer. MD: NIMESH GORDON Exam Time: 8:31:0 0 AM Study Type:R outine Echo Height : 64in Weight : 206.57 lb BSA: 1.98 m2 Age: [birth year]46 Y Sex: FEMALE BP: 112/80 Sonogr phr: AJ Ranjit, DIAN,R VT,RDC S Pat. Stat.: Outpat ient CPT - 4: [facility] Reason for Study: syncop al epison d Histor y / Clinic al:Hyp ertens ion Proced ures:U L ECHO COMPLE TE SUMMAR Y: Rhythm : The rhythm is normal sinus rhythm for the majori ty of the study. Left Ventri mony: The left ventri mony is normal in size. Left ventri cular wall thickn ess is normal . Systol ic functi on is normal with EF of 60-65% . Diasto lic functi on is normal . There were no wall motion abnorm alitie s seen. Left Atrium : The left atrium is normal in size. Right Ventri mony: The right ventri mony is normal in size with normal functi on. Right Atrium : The right atrium is normal in size. Atrial Septum : The intera trial septum is intact with no eviden ce of septal defect . Perica rdium: The perica rdium appear s normal . There is no eviden ce of a perica rdial effusi on. Aorta: The aortic root is normal . The aortic arch is normal . The ascend ing aorta measur es 3.0 cm. Inferi or Vena Cava: IVC is normal with good inspir atory collap se. Aortic Valve: The aortic valve is trilea flet and appear s slight ly thicke verónica with no eviden ce of stenos is. There is no eviden ce of aortic regurg itatio n. Mitral Valve: The mitral valve is normal with no eviden ce of stenos is. There is no eviden ce of mitral annula r calcif icatio n. There is no eviden ce of mitral regurg itatio n. Pulmon ic Valve: The pulmon ic valve is poorly seen. Tricus pid Valve: The tricus pid valve is normal with no eviden ce of stenos is. There is no eviden ce of tricus pid regurg itatio n. RVSP could not be determ ined. Unable to obtain accura te pulmon ellyn artery pressu re. Other: CONCLU STEPHANIA: The left ventri mony is normal in size. Left ventri cular wall thickn ess is normal . Systol ic functi on is normal with EF of 60-65% . Diasto lic functi on is normal . There were no wall motion abnorm alitie s seen. Normal valves . RVSP could not be determ ined. Unable to obtain accura te pulmon ellyn artery pressu re. COMPAR MARIAH: There are no prior [facility] echoca rdiogr am report s availa ble for compar mariah. MEASUR EMENTS : 2D Left Ventri mony LVIDd 5.2 cm (3.6-5 .2) LVEDV 128 cc (59-13 6) LVIDs 3.4 cm (2.3-3 .9) LVESV 48 cc LV%fs 34 % (25-46 ) LV EF 62 % (55-75 ) Ventri cular Septum IVSd 1.2 cm LVPW LVPWd 0.49 cm Left Atrium LA a-p 3.1 cm (2.8-3 .4) Aorta Ao Rtd 2.9 cm Ao Asc 3 cm (2.1-3 .4) LVOT LVOT 1.8 cm LVOTa 2.5 cm2 LA Single Plane LA Area2C 12 cm2 LAVol2 In 12 ml/m2 LA Vol 2C 24 cc MMODE Left Atrium LAIDs 3.6 cm IVC IVC Emily 1.2 cm DOPPLE R AV Forwar d Flow AV pkVel 119 cm/s (100-1 70) BERNICE pkVel 2.1 cm2 AV pkPG 6 mmHg MV Forwar d Flow MV DeTm 158 ms MV pkA 59 cm/s MV pkE 87 cm/s (60-13 0) MV E/A 1.5 LVOT LVOTpk Daryn 100 cm/s (70-11 0) LVOTpk PG 4 mmHg? LVOT VTI 20 cm ? LVOTmn PG 2 mmHg? Left Ventri mony LatEm 7.9 cm/s SeptEm 7.9 cm/s? LatE/E m 11 SeptE/ Em 11 PV Forwar d Flow PV AC 115 ms ? Thorac ic aorta Antegr fhaeem Flow Peak Veloci ty 74 cm/s PG pk 2 mmHg? Signed 2016 11:35 AM Rigoberto hoffman MD Techno logist : ROBB FOLEY Transc ribed by: Renetta woody, PS360 Result s 2016 08:31 AM Electr onical ly Signed By: RIGOBERTO VILLANUEVA MD 2016 11:35 AM shonda [facility] [address] [facility], [place], [address], 03/02/2017 14:06:11 03/01/20 17 maria luisa r monit or No observ ation record ed. [email or web address] [facility] [address] [place] [address], [address], 03/02/2017 14:06:12 Result Notes None recorded. Problems Name Problem SNOMED Code Status Onset Date Resolution Date Notes Provider Name and Address Organization Details Recorded Time Hypothyroidism 24200966 Active (s/p tx for hypert hyroid ism) Kizzy Beavers NP [address] [place], [place] [address], [address], [facility] 6 18:44:16 Obesity 259324268 Active Kizzy Beavers NP [address] [place], [place] [address], [address], [facility] [place] 6 13:33:38 Benign essential hypertension 5785745 Active 2016 Kizzy Beavers NP [address] [place], [place] [address], [address], [facility] 7 07:58:48 Problem Notes None recorded. Procedures Surgical History Date Name Laterality Status Provider Name and Address Organization Details Recorded Time 08/17/19 18 POC Flu Testing completed Nelly Velasco LPN [facility] 08/17/2017 14:32:46 07/24/19 11 completed Viola Perez NP [address] [place] [address], [phone], [facility] 06/17/2015 11:01:30 07/24/18 88 completed Viola Perez NP [address] [place] [address], [phone], [facility] 06/17/2015 11:01:30 07/24/18 85 Tonsillectomy completed Viola Perez NP [address] [place] [address], [phone], [facility] 06/17/2015 11:09:57 Imaging Results Imaging Date Name Status LastModified by Organization Details LastModified Time 02/23/2017 electrocardiogram completed Informa tion not available 02/23/2017 17:36:54 02/19/2017 CT, head + brain, w/o contrast completed BAR[facility] Information not available 02/23/2017 18:38:32 02/19/2017 electrocardiogram completed [facility] Informa tion not available 02/23/2017 18:38:33 02/19/2017 XR, chest, 1 view completed [facility] Informa tion not available 02/23/2017 18:38:33 03/01/2017 US, echocardiogram, transthoracic, complete completed [email or web address] [facility] [address] [facility], [place], [address], 03/02/2017 14:06:11 03/01/2017 holter monitor completed [email or web address] [facility] [address] [place] [address], [address], 03/02/2017 14:06:12 Procedure Notes None recorded. Medical Equipment None Reported. Allergies No known drug allergies Medications Name Sig Start Date Stop Date Status Note LastModified by Organization Details LastModified Time levothyro xine sodium 125 mcg tabs active Not Available Not Available Not Available chlorhexi dine gluconate oral rinse 0.12 % soln active Not Available Not Available Not Available levothyro xine sodium 137 mcg tabs active Not Available Not Available Not Available levothyro xine 137 mcg tablet TAKE 1 TABLET BY MOUTH EVERY DAY 30 TO 60 MINUTES BEFORE BREAKFAS T WITH FULL GLASS OF WATER active Not Available Not Available No t Available Zyrtec 10 mg tablet Take 1 tablet every day by oral route. active Not Available Not Available No t Available levothyro xine 125 mcg tablet TAKE 1 TABLET BY MOUTH DAILY active Not Available Not Available No t Available triamcino lone acetonide 0.1 % topical ointment APPLY A THIN LAYER TO THE AFFECTED AREA(S) BY TOPICAL ROUTE 2 TIMES PER DAY FOR 2 WEEKS 05/17 completed Not Available Not Available Not Available lisinopri l 10 mg tablet TAKE 1 TABLET(S ) EVERY DAY BY ORAL ROUTE FOR 90 DAYS. active Not Available Not Available No t Available levothyro xine 150 mcg tablet TAKE 1 TABLET BY MOUTH AT BEDTIME active Not Available Not Available No t Available hydrochlo rothiazid e 12.5 mg capsule TAKE 1 CAPSULE EVERY DAY 07/13 completed dose increase Not Available Not Available Not Available hydrochlo rothiazid e 25 mg tablet TAKE 1 TABLET BY MOUTH EVERY DAY active Not Available Not Available No t Available chlorhexi dine gluconate 0.12 % mouthwash SWISH AND SPIT WITH 15 ML 2 TIMES A DAY active Not Available Not Available No t Available Vitals Date Recorded Body height Body mass index (BMI) Body weight Heart rate Systolic blood pressure Diastolic blood pressure Provider Name and Address Organization Details Last Updated DateTime 7 161.29 cm 36.1 kg/m2 77625.3 2 g 84 /min 102 mm[Hg] 80 mm[Hg] Andria Ayala LPN [facility] 7 15:03:00 Date Recorded Systolic blood pressure Diastolic blood pressure Provider Name and Address Organization Details Last Updated DateTime 02/08/2017 102 mm[Hg] 64 mm[Hg] Wendy Chaudhary Raine [facility] 02/08/2017 15:07:24 Date Recorded Body height Body mass index (BMI) Body weight Heart rate Heart rate Heart rate Heart rate Systolic blood pressure Diastolic blood pressure Systolic blood pressure Diastolic blood pressure Systolic blood pressure Diastolic blood pressure Systolic blood pressure Diastolic blood pressure Systolic blood pressure Diastolic blood pressure Provider Name and Address Organization Details Last Updated DateTime 7 161.29 cm 35.8 kg/m2 29944.5 4 g 72 /min 70 /min 74 /min 72 /min 118 mm[Hg] 76 mm[Hg] 122 mm[Hg] 82 mm[Hg] 120 mm[Hg] 82 mm[Hg] 116 mm[Hg] 74 mm[Hg] 118 mm[Hg] 74 mm[Hg] Andria Ayala LPN [facility] 7 17:04:22 Date Recorded Body height Body mass index (BMI) Body weight Body temperature Heart rate Respiratory rate Systolic blood pressure Diastolic blood pressure Provider Name and Address Organization Details Last Updated DateTime 8 161.29 cm 38.6 kg/m2 163976. 01 g 98.5 [degF] 88 /min 13 /min 130 mm[Hg] 80 mm[Hg] Nelly Velasco LPN [facility] 8 14:31:05 Social History Question Answer Notes LastModified by Organizat ion Details LastModified Time Tobacco Smoking Status Former Smoker 08/11/14 BLAKE Bee, [facility] 06/17/2015 10:29:32 What Is Your Level Of Alcohol Consumption? Moderate 1-2 Glass Of Wine 4 Nights A Week Information not available 06/17/2015 Do You Wear A Helmet When Biking? Yes Information not available 06/17/2015 What Is Your Level Of Caffeine Consumption? Moderate Information not available 06/17/2015 How Much Tobacco Do You Chew? None Information not available 06/17/2015 What Type Of Diet Are You Following? REGULAR Information not available 06/17/2015 Which Illicit Or Recreational Drugs Have You Used? 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 12 Information not available 12/03/2015 Are There Any Guns Present In Your Home? No Information not available 06/17/2015 Live Alone Or With Others? With Others Fiance And Dtr Information not available 06/17/2015 Does The Patient Have Difficulty Speaking Palauan? No Information not available 06/17/2015 Does The Patient Have Difficulty Reading Palauan? No Information not available 06/17/2015 Patient Has Health Care Proxy Signed And In Chart Yes Jimmie Lobato [email or web address] Information not available 12/29/2016 Mosquito Repellent Used Routinely No Information not available 06/17/2015 What Was The Date Of Your Most Recent Tobacco Screening? 08/17/2017 Information not available 02/13/2019 How Many Children Do You Have? 2 Abhinav (1988), Arminda (2010) Information not available 06/23/2015 What Is Your Current Pack Years? 10-19packye ars 15 Pack Years Information not available 06/17/2015 Seat Belts Used Routinely Yes Information not available 06/17/2015 Smoke Alarm In Home Yes [email or web address] Information not available 06/17/2015 What Types Of Sporting Activities Do You Participate In? None Information not available 06/17/2015 General Stress Level High Information not available 06/17/2015 Do You Use Sunscreen Routinely? Yes [email or web address] Information not available 06/17/2015 Sex: Unknown Functional Status None recorded. Mental Status None recorded. Family History Relationship Description Onset Age of this Age Resolved Age Notes LastModified by Organization Details LastModified Time Paternal Aunt Carcinoma of breast early 40s [email or web address] Not available 12/03/2015 11:36:22 Father Malignant tumor of lung 56 smoker [email or web address] Not available 2015 11:36:22 Father Malignant neoplasm of skin [email or web address] Not available 2015 11:36:22 Mother Tobacco user chroni c bouts of PNA [email or web address] Not available 12/03/2015 11:36:22 Mother Diabetes mellitus [email or web address] Not available 2015 11:36:22 Mother Chronic obstructive pulmonary disease [email or web address] Not available 2015 11:36:22 Notes:PGM had some kind of C A but unsure. NO Colon or Ovarian CA Medical History Condition Response Hyperthyroid Y Gynecological History Statement/Question Response Date of LMP 11/06/2015 Menses Monthly N HPV History of Abnormal Pap Y Current Control Method None Age at Menarche 12 Obstetrics History GPAL:G 0 P 0 0 0 0 Immunizations Vaccine Type Date Status Note Provider Nam e and Address Organization Details Recorded Time influenza, unspecified formulation 5 completed Roya Fernandez MA [facility], [facility] 06/17/2015 10:35:33 influenza, unspecified formulation 6 completed Gay Chaney CMA [facility] 06/29/2016 07:50:05 Influenza, split virus, quadrivalent, preservative 7 completed Nelly Velasco LPN [facility] 08/17/2017 14:28:33 Past Encounters Encounter ID Performer Location Encounter Start Date Encounter Closed Date Diagnosis/Indication Diagnosis SNOMED-CT Code Diagnosis ICD10 Code Diagnosis Note [id number] JOSLYN Elkins, [facility], OFFICE [address] [place] [phone] 06/17/2015 10:14:27 06/17/2015 11:44:45 Hypothyroidism 99064074 E03.9 [id number] Kizzy Beavers NP FP, [facility], OFFICE [address] [place] [phone] 12/03/2015 10:58:37 12/03/2015 12:01:59 Screening for malignant neoplasm of cervix 647995208 Z12.4 Adult heal th examination 182389613 Z00.00 see Risk Assessment and Lifestyle Change Counseling section above Counseling 059682440 Z71 .9 Hypothyroidism 18091640 E03.9 will recheck TSH. increased dose in July 926661470 R21 bottom of L foot Keratosis 987099268 L57. 0 [id number] ANGELITA Boggs, [facility], OFFICE [address] [place] [phone] 05/17/2016 16:24:00 05/17/2016 16:44:23 Lateral epicondylitis 230892326 M77.11 [id number] Kizzy Beavers NP , [facility], OFFICE [address] [place] [phone] 06/29/2016 07:45:04 06/29/2016 08:12:14 Lateral epicondylitis 919328174 M77.11 will get xray as pain started with an injury. will send PT referral when she decides where she wants to go Elevated blood-pressure reading without diagnosis of hypertension 793985646 R03.0 recheck in 2 weeks. asymptomat ic Obesity 792619020 E66.9 1lb weight loss in 6 months. no weight gain Insomnia 454249729 G47.0 0 sleep hygiene discussed. [id number] JOSLYN Castillo, [facility], OFFICE [address] [place] [phone] 07/13/2016 07:44:47 07/13/2016 08:09:28 Benign essential hypertension 1634208 I10 not at goal of <140/90. increase HCTZ to 25mg daily. f/u in 2-3 weeks. labs today Hypothyroidism 76278708 E03.9 will recheck TSH today [id number] Kizzy Beavers NP , [facility], OFFICE [address] [place] [phone] 08/02/2016 07:42:54 08/02/2016 07:57:30 Benign essential hypertension 8187422 I10 BP at goal of <140/90 with HCTZ 25mg daily. tolerating well. continue working on regular exercise and low salt diet. Labs in November before PHA [id number] Kizzy Beavers NP , [facility], OFFICE [address] [place] [phone] 12/29/2016 15:24:00 12/30/2016 13:43:11 Adult health examination 359690334 Z00.00 see Risk Assessment and Lifestyle Change Counseling section above Counseling 398464687 Z71 .9 Benign ess ential hypertension 9264274 I10 Blood pressure NOT at goal of <140/90. continue HCTZ, tolerating well. add lisinopril daily. check BP and f/u in 4 weeks. needs labs Hypothyroidism 70816667 E03.9 TSH at goal with levothyrox ine Obesity 544846992 E66.9 doing well with weight loss. keep it up! [id number] Kizzy Beavers NP , [facility], OFFICE [address] [place] [id number] 02/08/2017 14:55:03 02/08/2017 15:19:40 Benign essential hypertension 1142488 I10 BP at goal of <140/90 with lisinopril and HCTZ. tolerating well [id number] , [facility], OFFICE [address] [place] [phone] 02/23/2017 16:14:42 02/23/2017 17:13:55 Syncope 704785275 R55 EKG with RBBB and nonspecifi c T wave abnormalit y. CXR at [facility] showing moderate cardiomega ly. orthostati cs neg. discussed with Dr. Perdue. will get Holter and echo [id number] Elise De Anda RN BSN , [facility], OFFICE [address] [place] [address] 02/27/2017 15:29:51 02/27/2017 15:47:23 Palpitations 50894886 R00.2 [id number] Elise De Anda RN BSN , [facility], OFFICE [address] [place] [address] 02/28/2017 15:42:52 02/28/2017 16:29:43 Palpitations 76667843 R00.2 [id number] Moni Thompson NP , [facility], OFFICE [address] [place] [address] 08/17/2017 14:13:54 08/17/2017 15:22:21 Acute upper respiratory infection 72059507 J06.9 flu negative = discussed sx care for viral illness. Work release note. RTC prn Health Concerns Section Related Observation LastModified by Organization Detai ls LastModified Time None Recorded Concern Status LastModified by Organization Details LastModified Time None Recorded Advance Directives Directive None Recorded Payers Encounter Date Sequence Insurance Name Policy Number Policy Padgett Covered Member ID Padgett Member ID Guarantor Name 02/08/2017 1 [facility] [id number] 1 Bro Oliveiraell [id number] Gay Ren 02/23/2017 1 [facility] [id number] 1 Bro Florence [id number] Gay Ren 02/27/2017 1 [facility] [id number] 1 Bro Oliveiraell [id number] Gay Ren 02/28/2017 1 [facility] [id number] 1 Bro Oliveiraell [id number] Gay Ren 08/17/[address] [place] [address] [id number] 1 Bro Florence [id number] Gay Ren Notes Date Note Type Note Provider Name and Address Organization Details Recorded Time 7 text/html [facility] HypertensionReported bypatient.Control:Treated with diet and exercise; Treated with medications; Patient understands medications are to lower blood pressure Compliance:Compliant with medications; Compliant with diet; Compliant with follow-up visits;Noncompliant with exercise Barriers to Carehas no time; under stress Self Care:Using home BP monitor weekly home BPs range 130-140/85/90 Context:No ischemic heart disease; No kidney disease; No history of CVA; No congestive heart failure; No history of transient ischemic attacks; No peripheral vascular disease; No history of diabetes Associated Symptoms:No chest pain; No shortness of breath; No edema; No fatigue; No palpitations; No decline in exercise capacity; No snoring Ability to Manage Self CarePatient feels moderately confident in ability to self manage condition pt presents to f/u uncontrolled HTN- taking HCTZ. started lisinopril 1 month ago. tolerating well. no cough except mild dry cough this morning- BP at work 116-130/83-86- no new T[place], no dizziness. no chest pain or sob- tired r/t to busy work schedule- working on balanced diet with lots of veggies and lean protein- swimming every day at home. on feet a lot at work - sched with derm for foot in march. new chung derm Kizzy Beavers NP [address] [place] [address], [phone], [facility] [place] 15:28:38 7 text/html pt presents for [facility] f/u - Monday night she was sitting outside with her friend watching the starts- had 2 glasses of wine, no more and did not feel intoxicated- the next thing she remembers is waking up looking at EMT. her friend reports she seems confused then lost conciousness. 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 EKG showing RBB and T wave abnormalities. CXR showing moderate cardiomegaly. no acute cardiopulm process. troponins negative. Head CT neg- hx of HTN. taking HCTZ daily. started lisinopril a month or so ago and has been at goal- last week was very stressful working long hours then went off her diet and ate lots of carbs. was very busy the day of this incident. at the park with family then spent a lot of time gardening- reports a lot of GI upset/bloating/gas the week before this incident and currently- denies chest pain or sob. no hx of MS. no hx of seizures- since this incident she has not felt lightheaded. no loc Kizzy Beavers NP [address] [place], [phone], [facility] [place] 02/23/2017 17:42:41 8 text/html Pt from [facility] here with sudden onset scratchy throat yesterday, chills, woke during night T 103 last night -went and bought new thermometer in case it was wrong. Achy, cough. [facility] at [facility]. FLu is going around. Moni Thompson, JOSLYN [address] [place] [address], [place], [phone], [facility] [place] 08/18/2017 06:43:33 OBGyn Episode No OBEpisode recorded.
[2024-08-05 10:43] LABS: TSH reflex Free T4 0.12 uIU/mL (0.32-4.0)
[2024-08-05 11:33] LABS: Free T4 (Free Thyroxine) 1.39 ng/dL (0.71-1.85)
== END 2024-08-05 08:21 | disposition home or self-care (01) ==
LOC: HO.US 08:20
PROVIDERS: PCP Physician Assistant; Visit Provider Physician Assistant Surgical
DX: I83.11 Varicose veins of right lower extremity with inflammation (principal); I83.12 Varicose veins of left lower extremity with inflammation; E03.9 Hypothyroidism, unspecified
CPT/HCPCS: 36415; 84439; 84443; 93970

== ENCOUNTER → 2024-08-05 08:23 | Outpatient (BNV) | payer BC, SELFPAY | PROVIDERS: PCP Physician Assistant; Visit Provider Radiology Vascular & Interventional Radiology | DX: I83.11 Varicose veins of right lower extremity with inflammation (principal) | CPT/HCPCS: 93970 ==

== ENCOUNTER 2024-08-22 08:19 | Outpatient (REF) | payer BC, SELFPAY ==
--- OUTSIDE RECORDS SUMMARY | 2024-08-22 11:11 | XMS_ITS | Data Portability ---
Author Organization [facility], , [facility] Address [address] [place] [address] Care Team Providers Care Console Operator Name Role Phone KIZZY BEAVERS Primary Care Provider Assessment No assessment recorded. Plan of Treatment Reminders Order Date Submit Date Provider Last Modified By Organization Details Last Modified Time Details Appointments None recorded. Lab BMP, serum or plasma 2016 017 [email or web address] 6 [facility], [address] [place], [address], 8 09:02:34 Referral None recorded. Procedures None recorded. Surgeries None recorded. Imaging US, echocardiog vince - 46yo F with syncopal episode and moderate cardiomegal y on CXR. 03/01/17 8:30 AM arrive 8:15. no prep. pt aware 2016 017 [facility], [address] [place], [address], 7 11:36:02 holter monitor - Holter Monitor applied as per protocol. Reviewed recording of events in diary and placement of electrodes with patient. Instructed to return in 24 hours for removal. 2016 017 CLAUDE [email or web address], [address] [place], [address], 7 11:58:33 holter monitor - Holter Monitor removed as per protocol. Account Number [id number] 2016 017 [email or web address] [facility], [address] [place], [address], 7 18:56:59 Medication Orders None recorded. Patient TargetsNo targets recorded. Patient Instructions Encounter Date Encounter Id Patient Instructions Last Modified By Organization Details Last Modified Time 02/08/2017 [id number] After a discussi on of treatment options, [...] before [email or web address] Not available 02/08/2017 15:28:22 02/23/2017 [id number] After a discussi on of treatment options, [...] en 0.4-4 .0 mIU/m L. Not Available [address], [address], 06/26/2017 12:09:15 06/26/20 17 06/26/2017 lipid panel , serum cholesterol 120 mg/dL <200 mg/dl Mac able 200-2 39 mg/dl Borde rline High >240 mg/dl High Not Available [address], [address], 06/26/2017 13:09:32 06/26/20 17 06/26/2017 lipid panel , serum triglyceride s 30 mg/dL <150 mg/dL Kate l 150-1 99 mg/dL Borde rline High 200-4 99 mg/dL High >500 mg/dL Very High Not Available [address], [address], 06/26/2017 13:09:32 06/26/20 17 06/26/2017 lipid panel , serum direct HDL 49 mg/dL Not Available [address], [address], 06/26/2017 13:09:32 06/26/20 17 06/26/2017 LDL, colton daniels , serum (OBS) LDL - calculated 65.0 RISK CATEG ORY LDL GOAL _ CHD or CHD Risk Equiv alent s <100 mg/dl (10-y ear risk >20%) 2+ Risk Facto rs <130 mg/dl (10-y ear risk <= 20%) 0-1 Risk Facto r? <160 mg/dl ? Almos t all peopl e with 0-1 risk facto r have a 10 year risk <10%, thus 10 year risk asses ment in peopl e with 0-1 risk facto r is not neces renay. Not Available [address], [address], 06/26/2017 13:09:33 06/26/20 17 06/26/2017 BMP, serum or plasm a glucose 92 mg/dL 70-100 Not Available [address], [address], 06/26/2017 16:44:28 06/26/20 17 06/26/2017 BMP, serum or plasm a BUN 19 mg/dL 7-18 high Not Available [address], [address], 06/26/2017 16:44:28 06/26/20 17 06/26/2017 BMP, serum or plasm a creatinine 0.8 mg/dL 0.8-1. 3 Not Available [address], [address], 06/26/2017 16:44:28 06/26/20 17 06/26/2017 BMP, serum or plasm a B/C 23.8 ratio Not Available [address], [address], 06/26/2017 16:44:28 06/26/20 17 06/26/2017 BMP, serum or plasm a GFR -non 85.8 mL/mi n Recom luz d GFR by the Natio nal Kidne y Found ation >60 mL/mi n/1.7 3m2 - Kate l <60 mL/mi n/1.7 3m2 - Chron ic Kidne y Disea se <15 mL/mi n/1.7 3m2 - Kidne y Failu re Not Available [address], [address], 06/26/2017 16:44:28 06/26/20 17 06/26/2017 BMP, serum or plasm a GFR - if 98.6 mL/mi n For Afric an Ameri can patie nts: Resul ts Multi plied by 1.21 Not Available [address], [address], 06/26/2017 16:44:28 06/26/20 17 06/26/2017 BMP, serum or plasm a sodium 143 mmol/ L 136-14 5 Not Available [address], [address], 06/26/2017 16:44:28 06/26/20 17 06/26/2017 BMP, serum or plasm a potassium 3.8 mmol/ L 3.5-5. 1 Not Available [address], [address], 06/26/2017 16:44:28 06/26/20 17 06/26/2017 BMP, serum or plasm a chloride 104 mmol/ L 96-107 Not Available [address], [address], 06/26/2017 16:44:28 06/26/20 17 06/26/2017 BMP, serum or plasm a anion gap 13.2 5.0-15 .0 Not Available [address], [address], 06/26/2017 16:44:28 06/26/20 17 06/26/2017 BMP, serum or plasm a CO2 26 mmol/ L 21-32 Not Available [address], [address], 06/26/2017 16:44:28 06/26/20 17 06/26/2017 BMP, serum or plasm a calcium 8.4 mg/dL 8.5-10 .3 low JEFF=V erifi ed by Shankar pabon Not Available [address], [address], 06/26/2017 16:44:28 08/17/19 18 08/17/2017 rapid flu (A+B) flu A POC INVALI D negative Not Available [address], [address], 08/17/2017 14:44:12 08/17/19 18 08/17/2017 rapid flu (A+B) flu B POC INVALI D negative Not Available [address], [address], 08/17/2017 14:44:12 08/17/19 18 08/17/2017 rapid flu (A+B) flu A POC NEGATI VE Not Available [address], [address], 08/17/2017 15:10:49 08/17/19 18 08/17/2017 rapid flu (A+B) flu B POC NEGATI VE Not Available [facility] [address], [place], [address], 08/17/2017 15:10:49 02/24/20 17 elect rocar diogr [...] ete [facility] [address] [place] [address] Phone: Echoca rdiogr am Pat.Na me: GAY REN Pat.ID : [id number] St.Sánchez e: 03/01/20 17 Refer. MD: NIMESH GORDON Exam Time: 8:31:0 0 AM Study Type:R outine Echo Height : 64in Weight : 206.57 lb BSA: 1.98 m2 Age: [birth year],46 Y Sex: FEMALE BP: 112/80 Sonogr phr: ROBB Church RDMS,R VT,RDC S Pat. Stat.: Outpat ient CPT [...] 115 ms ? Thorac ic aorta Antegr faheem Flow Peak Veloci ty 74 cm/s PG pk 2 mmHg? Signed 2016 11:35 AM Rigoberto hoffman MD Techno logist : ROBB CHURCH Transc ribed by: Interf woody, PS360 Result s 2016 08:31 AM Electr onical ly Signed By: RIGOBERTO VILLANUEVA MD 2016 11:35 AM shonda [facility] [address] [place], [address], 03/02/2017 14:06:11 03/01/20 17 maria luisa r monit or No observ ation record ed. shonda [facility] [address] [place] [address], [address], 03/02/2017 14:06:12 Result Notes None recorded. Problems Name Problem SNOMED Code Status Onset Date Resolution Date Notes Provider Name and Address Organization Details Recorded Time Hypothyroidism 99370336 Active (s/p tx for hypert hyroid ism) Kizzy Beavers NP [address] [place], [place] [address], [address], [facility] 6 18:44:16 Obesity 432017710 Active Kizzy Beavers NP [address] [place] [address] [facility] [place] [address], [facility] 6 13:33:38 Benign essential hypertension 8038014 Active 2016 Kizzy Beavers NP [address] [place], [place] [address], [address], [facility] 7 07:58:48 Problem Notes None recorded. Procedures Surgical History Date Name Laterality Status Provider Name and Address Organization Details Recorded Time 08/17/19 18 POC Flu Testing completed Nelly Velasco LPN [facility] 08/17/2017 14:32:46 07/24/19 11 completed Viola Perez NP [address] [place] [address], [address], [facility] 06/17/2015 11:01:30 07/24/18 88 completed Viola Perez NP [address] [place] [address], [address], [facility] 06/17/2015 11:01:30 07/24/18 85 Tonsillectomy completed Viola Perez NP [address] [place] [address], [address], [facility] 06/17/2015 11:09:57 Imaging Results Imaging Date Name Status LastModified by Organization Details LastModified Time 02/23/2017 electrocardiogram completed zorek Informa tion not available 02/23/2017 17:36:54 02/19/2017 CT, head + brain, w/o contrast completed BAR[facility] Information not available 02/23/2017 18:38:32 02/19/2017 electrocardiogram completed [facility]CODE Informa tion not available 02/23/2017 18:38:33 02/19/2017 XR, chest, 1 view completed [facility]CODE Informa tion not available 02/23/2017 18:38:33 03/01/2017 US, echocardiogram, transthoracic, complete completed zorek [facility] [address] [place], [address], 03/02/2017 14:06:11 03/01/2017 holter monitor completed zorek [email or web address] [address] [place] [address], [address], 03/02/2017 14:06:12 Procedure Notes None recorded. Medical [...] t Available Vitals Date Recorded Body height Provider Name an d Address Organization Details Last Updated DateTime 02/08/2017 161.29 cm Andria Ayala [facility] 02/08/2017 14:58:42 Date Recorded Body mass index (BMI) Body weight Provider Name and Address Organization Details Last Updated DateTime 02/08/2017 36.1 kg/m2 86327.32 g Andria [facility] 02/08/2017 15:00:49 Date Recorded Heart rate Provider Name an d Address Organization Details Last Updated DateTime 02/08/2017 84 /min Andria [facility] 02/08/2017 15:01:22 Date Recorded Body height Provider Name an d Address Organization Details Last Updated DateTime 02/23/2017 161.29 cm Andria [facility] 02/23/2017 16:21:15 Date Recorded Body mass index (BMI) Body weight Provider Name and Address Organization Details Last Updated DateTime 02/23/2017 35.8 kg/m2 62965.54 g Andria Ayala [facility] 02/23/2017 16:21:20 Date Recorded Heart rate Provider Name an d Address Organization Details Last Updated DateTime 02/23/2017 72 /min Andria [facility] 02/23/2017 16:21:49 Date Recorded Heart rate Provider Name an d Address Organization Details Last Updated DateTime 02/23/2017 70 /min Andria Ay[facility] 02/23/2017 17:03:44 Date Recorded Heart rate Provider Name an d Address Organization Details Last Updated DateTime 02/23/2017 74 /min Andria Kimo [facility] 02/23/2017 17:03:47 Date Recorded Heart rate Provider Name an d Address Organization Details Last Updated DateTime 02/23/2017 72 /min Andria Jimenezjoselin [facility] 02/23/2017 17:03:49 Date Recorded Body height Provider Name an d Address Organization Details Last Updated DateTime 08/17/2017 161.29 cm Nelly Peraltajosiane [facility] 08/17/2017 14:21:34 Date Recorded Body mass index (BMI) Body weight Provider Name and Address Organization Details Last Updated DateTime 08/17/2017 38.6 kg/m2 109792.01 g Nelly Rod [facility] 08/17/2017 14:27:31 Date Recorded Body temperature Provider Name a nd Address Organization Details Last Updated DateTime 08/17/2017 98.5 [degF] Nelly Rod [facility] 08/17/2017 14:31:15 Date Recorded Heart rate Provider Name an d Address Organization Details Last Updated DateTime 08/17/2017 88 /min Nelly Peraltajosiane [facility] 08/17/2017 14:31:30 Date Recorded Respiratory rate Provider Name a nd Address Organization Details Last Updated DateTime 08/17/2017 13 /min Nelly Peraltajosiane [facility] 08/17/2017 14:31:32 Date Recorded Systolic blood pressure Diastolic blood pressure Provider Name and Address Organization Details Last Updated DateTime 02/08/2017 102 mm[Hg] 80 mm[Hg] Andria Jimenezjoselin [facility] 02/08/2017 15:03:00 Date Recorded Systolic blood pressure Diastolic blood pressure Provider Name and Address Organization Details Last Updated DateTime 02/08/2017 102 mm[Hg] 64 mm[Hg] Wendy Chaudhary [facility] 02/08/2017 15:07:24 Date Recorded Systolic blood pressure Diastolic blood pressure Provider Name and Address Organization Details Last Updated DateTime 02/23/2017 118 mm[Hg] 76 mm[Hg] Andria yAala [facility] 02/23/2017 16:22:46 Date Recorded Systolic blood pressure Diastolic blood pressure Provider Name and Address Organization Details Last Updated DateTime 02/23/2017 122 mm[Hg] 82 mm[Hg] Andrianoe Ayala [facility] 02/23/2017 16:26:04 Date Recorded Systolic blood pressure Diastolic blood pressure Provider Name and Address Organization Details Last Updated DateTime 02/23/2017 120 mm[Hg] 82 mm[Hg] Andria Aayla [facility] 02/23/2017 17:04:16 Date Recorded Systolic blood pressure Diastolic blood pressure Provider Name and Address Organization Details Last Updated DateTime 02/23/2017 116 mm[Hg] 74 mm[Hg] Andrianoe Ayala [facility] 02/23/2017 17:04:19 Date Recorded Systolic blood pressure Diastolic blood pressure Provider Name and Address Organization Details Last Updated DateTime 02/23/2017 118 mm[Hg] 74 mm[Hg] Andria Ayala [facility] 02/23/2017 17:04:22 Date Recorded Systolic blood pressure Diastolic blood pressure Provider Name and Address Organization Details Last Updated DateTime 08/17/2017 130 mm[Hg] 80 mm[Hg] Nelly Rod [facility] 08/17/2017 14:31:05 Social History Question Answer Notes LastModified by Organizat ion Details LastModified Time Tobacco Smoking Status [facility]11/14 [facility] 10:29:32 What Is Your Level Of [...] 06/17/2015 Does The Patient Have Difficulty Speaking Maltese? No Information not available 06/17/2015 Does The Patient Have Difficulty Reading Maltese? No Information not available 06/17/2015 Patient Has Health Care Proxy Signed And In Chart Yes Son Sanjeev Lobato sbrusco Information not available 12/29/2016 Mosquito Repellent Used Routinely No Information not available 06/17/2015 What Was The Date Of Your Most Recent Tobacco Screening? 08/17/2017 Information not available 02/13/2019 How Many Children Do You Have? 2 Abhinav (1987), Arminda (2010) Information not available 06/23/2015 What Is Your Current Pack Years? 10-19packye ars 15 Pack Years Information not available 06/17/2015 Seat Belts Used Routinely Yes Information not available 06/17/2015 Smoke Alarm In Home Yes Information not available 06/17/2015 What Types Of Sporting Activities Do You Participate In? None Information not available 06/17/2015 General Stress Level High Information not available 06/17/2015 Do You Use Sunscreen Routinely? Yes Information not available 06/17/2015 Sex: Unknown Functional [...] unspecified formulation 5 completed [facility] 10:35:33 influenza, unspecified formulation 6 completed Gay Chaney CMA [facility] 06/29/2016 07:50:05 Influenza, split virus, quadrivalent, preservative 7 completed Nelly Velasco LPN [facility] 08/17/2017 14:28:33 Past Encounters Encounter ID Performer Location Encounter Start Date Encounter Closed Date Diagnosis/Indication Diagnosis SNOMED-CT Code Diagnosis ICD10 Code Diagnosis Note [id number] Viola Perez NP , [facility], OFFICE [address] [place] [address] 06/17/2015 10:14:27 06/17/2015 11:44:45 Hypothyroidism 73044636 E03.9 [id number] JOSLYN Castillo, [facility], [address] [place] [address] 12/03/2015 10:58:37 12/03/2015 12:01:59 Screening for malignant neoplasm of cervix 580594542 Z12.4 Adult heal th examination 563995673 Z00.00 see Risk Assessment and Lifestyle Change Counseling section above Counseling 462180160 Z71 .9 Hypothyroidism 65078141 E03.9 will recheck TSH. increased dose in July Eruption 464296007 R21 bottom of L foot Keratosis 226707383 L57. 0 [id number] ANGELITA Boggs, [facility], [address] [place] [address] 05/17/2016 16:24:00 05/17/2016 16:44:23 Lateral epicondylitis 658938239 M77.11 [id number] Kizzy Beavers NP FP, [facility], [address]ICE [address] [place] [address] 06/29/2016 07:45:04 06/29/2016 08:12:14 Lateral epicondylitis 870835703 M77.11 will get xray as pain started with an injury. will send PT referral when she decides where she wants to go Elevated blood-pressure reading without diagnosis of hypertension 062775133 R03.0 recheck in 2 weeks. asymptomat ic Obesity 213214723 E66.9 1lb weight loss in 6 months. no weight gain Insomnia 744246774 G47.0 0 sleep hygiene discussed. [id number] JOSLYN Castillo, [facility], [address]ICE [address] [place] [address] 07/13/2016 07:44:47 07/13/2016 08:09:28 Benign essential hypertension 6868562 I10 not at goal of <140/90. increase HCTZ to 25mg daily. f/u in 2-3 weeks. labs today Hypothyroidism 27650440 E03.9 will recheck TSH today [id number] JOSLYN Castillo, [facility], [address]ICE [address] [place] [address] 08/02/2016 07:42:54 08/02/2016 07:57:30 Benign essential hypertension 9801648 I10 BP at goal of <140/90 with HCTZ 25mg daily. tolerating well. continue working on regular exercise and low salt diet. Labs in November before PHA [id number] JOSLYN Castillo, [facility], OFFICE [address] [place] [address] 12/29/2016 15:24:00 12/30/2016 13:43:11 Adult health examination 610498036 Z00.00 see Risk Assessment and Lifestyle Change Counseling section above Counseling 885150185 Z71 .9 Benign ess ential hypertension 8219961 I10 Blood pressure NOT at goal of <140/90. continue HCTZ, tolerating well. add lisinopril daily. check BP and f/u in 4 weeks. needs labs Hypothyroidism 04044540 E03.9 TSH at goal with levothyrox ine Obesity 185087799 E66.9 doing well with weight loss. keep it up! [id number] Kizzy Beavers NP , [facility], [address] [place] [address] 02/08/2017 14:55:03 02/08/2017 15:19:40 Benign essential hypertension 2958932 I10 BP at goal of <140/90 with lisinopril and HCTZ. tolerating well [id number] , [facility], [address]ICE [address] [place] [address] 02/23/2017 16:14:42 02/23/2017 17:13:55 Syncope 981542568 R55 EKG with RBBB and nonspecifi c T wave abnormalit y. CXR at [facility] showing moderate cardiomega ly. orthostati cs neg. discussed with Dr. Perdue. will get Holter and echo [id number] Elise De Anda RN BSN , [facility], [address] [place] [address] 02/27/2017 15:29:51 02/27/2017 15:47:23 Palpitations 32273063 R00.2 [id number] Elise De Anda RN BSN , [facility], [address] [place] [address] 02/28/2017 15:42:52 02/28/2017 16:29:43 Palpitations 45008582 R00.2 [id number] Moni Thompson NP , [facility], [address] [place] [address] 08/17/2017 14:13:54 08/17/2017 15:22:21 Acute upper respiratory infection 75115409 J06.9 flu negative = discussed sx care [...] Padgett Member ID Guarantor Name 02/08/2017 1 [facility] [id number] 1 [address] [place] [id number] Gay Ren 02/23/2017 1 [facility] [id number] 1 [address] [place] [id number] Gay Ren 02/27/2017 1 [facility] [id number] 1 [address] [place] [id number] Gay Ren 02/28/2017 1 [facility] [id number] 1 [address] [place] [id number] Gay Ren 08/17/2017 1 [facility] [id number] 1 [address] [place] [id number] Gay Ren Notes Date Note Type Note [...] sched with derm for foot in march. sherwood akira Beavers NP [address] [place] [address], [address], [facility] 02/08/2017 15:28:38 7 text/html pt presents for [facility] f/u - Monday night she was sitting outside with her friend watching the starts- had 2 glasses of wine, no more and did not feel intoxicated- the next thing she remembers is waking up looking at EMT. her friend reports she seems confused then lost conciousness. 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 EKG showing RBB and T wave [...] chest pain or sob. no hx of AK. no hx of seizures- since this incident she has not felt lightheaded. no loc Kizzy Beavers, JOSLYN [address] [place], [address], [facility] 02/23/2017 17:42:41 8 text/html Pt from [facility] here with sudden onset scratchy throat yesterday, chills, woke during night T 103 last night -went and bought new thermometer in case it was wrong. Achy, cough. [facility] at [facility] -custodial. FLu is going around. Moni Thompson NP [address] [place], [address], [facility] 08/18/2017 06:43:33 OBGyn Episode No OBEpisode recorded.
[2024-08-22 11:23] LABS: TSH reflex Free T4 0.06 uIU/mL (0.32-4.0)
[2024-08-22 11:59] LABS: Free T4 (Free Thyroxine) 1.54 ng/dL (0.71-1.85)
== END 2024-08-22 08:20 | disposition home or self-care (01) ==
LOC: HO.10HDL 08:19
PROVIDERS: Visit Provider Physician Assistant
DX: E03.9 Hypothyroidism, unspecified (principal); I83.11 Varicose veins of right lower extremity with inflammation; I83.12 Varicose veins of left lower extremity with inflammation
CPT/HCPCS: 36415; 84439; 84443

== ENCOUNTER 2024-08-22 09:05 | Outpatient (AMB) | payer BC, SELFPAY ==
--- NOTE | 2024-08-22 09:07 | A.OFFVIS_ITS ---
Intake Visit Reasons: follow up s/p US 08/06/24 Intake Note: Patient presents for follow up US performed on August 06. Patient has no complaints. Accompanied by: Self / Same As Patient Allergies Seasonal Allergies Allergy (Unknown, Verified 08/22/24 09:10) Unknown HPI HPI follow up s/p US 08/06/24: Details: Gay is presenting today as a follow up to venous insufficiency ultrasound, performed on 08/05/2024. She does continue to endorse intermittent swelling over bilateral lower extremities with cramping, particularly at night. She states sh e has just started taking magnesium at night for the cramps as well. [facility] Medical History Vitamin D deficiency Multinodular thyroid Hypothyroidism Surgical History Hx of removal of cyst (11/30/23) Hx of colonoscopy History of esophagogastroduodenoscopy (EGD) History of dilatation and curettage Hx of tonsillectomy Hx of section Family History Father Lung cancer Mother Hypothyroidism Diabetes mellitus CAD (coronary artery disease) Brother CAD (coronary artery disease), Onset Age: 50 Diabetes mellitus Social History Housing: House Are you a primary daycare provider to a significant other at home: No Do you presently have visiting nurse or other home services: No Alcohol intake: former Patient Tobacco Use Status: Former Tobacco user Tobacco use type: Cigarette Cigarette Packs Per Day: 1 Years Smoked: 20 e-Cigarette/Vaping Use: Never Used Second Hand Smoke Exposure: No service: No Current occupational status: employed 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[employer] ( [employer] ) Cognitive needs: No Hearing needs: No Vision needs: Yes (glasses) Review of Systems Const Reports as per HPI and Denies weakness ENT Reports Normal hearing present and Denies dizziness Card Reports as per HPI, Denies chest pain, Denies chest pain at rest, Denies chest pain with activity, Denies dyspnea and Denies dyspnea on exertion Resp Reports as per HPI, Denies cough, Denies dyspnea and Denies dyspnea on exertion GI Reports as per HPI, Denies abdominal pain, Denies nausea and Denies vomiting Musc Denies numbness Skin/Breast Reports as per HPI, Denies erythema and Denies wounds Neuro Reports Normal hearing present, Denies dizziness, Denies numbness, Denies Sensory deficit (Neuro) and Denies weakness Psych Reports no additional complaints Endo Reports no additional complaints Physical Exam Const General: healthy appearing and no acute distress Orientation/consciousness: patient oriented x3 HEENT Head: Yes normal to inspection Ears: hearing grossly normal bilaterally Mouth: Normal oral and palatal mucosa present Resp Effort & Inspection: normal respiratory effort and able to speak in complete sentences Auscultation: clear to auscultation bilaterally Cardio Jugular venous distension: no JVD Rate: regular rate Rhythm: regular rhythm Heart sounds: S1 normal heart sound present and S2 normal heart sound present Bruits: no abdominal aortic bruits, no carotid bruits, no femoral bruits and no renal bruits Peripheral pulses: Peripheral pulses 2+ throughout GI Inspection: Yes normal to inspection Palpation (GI): No Abdominal aortic bruit present Skin General skin exam: no rashes or lesions noted Wounds: no wounds Hair: normal Neuro General: patient oriented x3 Cranial nerves: Yes Normal hearing present Cognition (Neuro): normal cognition Gait exam (Neuro): Normal gait present Motor exam (neuro): 5/5 motor strength present throughout Sensory Exam: No Sensory deficit (Neuro) Extrem Other: Right lower extremity: spider veins throughout the lower leg and upper thigh. Small tortuosity noted over the tibial process. Trace peripheral edema noted. Palpable DP pulse. Left lower extremity: spider veins throughout the lower leg. Trace peripheral edema noted. Palpable DP pulse. General: Yes normal to inspection, Yes full ROM, Yes capillary refill normal and Yes normal gait Results Reviewed Results Reviewed: Brief summary of venous insufficiency testing is as follows: right great saphenous vein: proximal thigh 0.27 with 2740ms, all else negative right small saphenous vein: negative right accessory vein: none present left great saphenous vein: mid thigh .28 with 2816ms, mid-calf .17 with 2632ms, all rest negative left small saphenous vein: negative left accessory vein: none present Please note there is no evidence of any venous aneurysms or significant tortuosity Assessment & Plan Assessment & Plan (1) Varicose veins of both lower extremities with inflammation: Code(s): I83.11 - Varicose veins of right lower extremity with inflammation; I83.12 - Varicose veins of left lower extremity with inflammation Category: Medical Plan: Gay is presenting today as a follow up to venous insufficiency ultrasound, performed on 08/05/2024. There were a couple of small sections of the left GSV and one of the right GSV that were found with some reflux; however, the vein sizes are too small to have any medical procedures done at this point. We discussed the importance of continuing with compression stockings, elevation, and physical activity. We discussed the importance of taking the magnesium to help with cramping at night. We discussed the importance of a well-balanced diet as well. We discussed that if she notices any of the veins bulging or tortuous, as well as any increased pain or swelling, she can reach back out to us any point. Thank you for allowing us participate in the patient's care. If there are any questions or concerns, please do not hesitate to reach out to us. Coding Level of Care Code Est Pt Level 4 (71360) Diagnoses Varicose veins of both lower extremities with inflammation I83.11; I83.12 Comment Review of venous insufficiency ultrasound
== END 2024-08-22 09:26 | disposition home or self-care (01) ==
PROVIDERS: PCP Physician Assistant; Visit Provider Physician Assistant Surgical
DX: I83.11 Varicose veins of right lower extremity with inflammation (principal); I83.12 Varicose veins of left lower extremity with inflammation
CPT/HCPCS: 99214

== ENCOUNTER 2024-10-05 10:34 | Outpatient (REF) | payer BC, SELFPAY ==
[2024-10-05 12:04] LABS: Creatinine Urine 16.01 mg/dL; Microalbumin Urine < 5.0 mg/L
[2024-10-05 12:08] LABS: Alanine Aminotransferase 21 U/L (0-31); Albumin Level 3.7 g/dL (3.5-5.0); Alkaline Phosphatase 53 U/L (39-117); Anion Gap 13 (12-20); Aspartate Amino Transferase 22 U/L (5-31); Bilirubin Total 0.4 mg/dL (0.0-1.0); Blood Urea Nitrogen 15 mg/dL (9-16); Calcium 8.3 mg/dL (8.4-10.2); Carbon Dioxide 27 mmol/L (22-29); Chloride 109 mmol/L (96-108); Estimated Glomerular Filt Rate > 60; Glucose Fasting 110 mg/dL (60-99); Potassium 3.9 mmol/L (3.3-5.1); Sodium 145 mmol/L (135-145); Total Protein 6.1 g/dL (6.5-8.0); Vitamin D 25-OH Total 22.4 ng/mL (>30)
== END 2024-10-05 10:35 | disposition home or self-care (01) ==
LOC: HO.LAB 10:34
PROVIDERS: PCP Physician Assistant; Visit Provider Physician Assistant
DX: E55.9 Vitamin D deficiency, unspecified (principal); E03.9 Hypothyroidism, unspecified; I10 Essential (primary) hypertension; Z13.1 Encounter for screening for diabetes mellitus
CPT/HCPCS: 36415; 80053; 82043; 82306; 82570; 84443

== ENCOUNTER 2025-03-10 16:45 | Outpatient (REF) | payer BC, SELFPAY ==
--- NOTE | ~2025-03-10 | XR_ITS ---
EXAMINATION: XR HAND 3 OR MORE VIEWS RIGHT HISTORY: M79.641 - Pain in right hand COMPARISON: There are no prior studies available for comparison. FINDINGS: Three views of the right hand are submitted. Osseous mineralization is normal. There is no fracture or dislocation. There is mild narrowing of the DIP and PIP joints. The soft tissues are unremarkable. XR/XR hand RT min 3V IMPRESSION: Mild narrowing of the DIP and PIP joints. Electronically signed by: Mal Naidu MD 03/11/2025 07:03 AM EDT
== END 2025-03-10 16:46 | disposition home or self-care (01) ==
LOC: HO.XRAY 16:45
PROVIDERS: PCP Physician Assistant; Visit Provider Physician Assistant
DX: M79.641 Pain in right hand (principal)
CPT/HCPCS: 73130

== ENCOUNTER → 2025-03-10 16:49 | Outpatient (BNV) | payer BC, SELFPAY | PROVIDERS: PCP Physician Assistant; Visit Provider Radiology Diagnostic Radiology | DX: M25.841 Other specified joint disorders, right hand (principal) | CPT/HCPCS: 73130 ==

== ENCOUNTER 2025-04-02 | Outpatient (REF) | payer BC, SELFPAY | END 2025-04-02 00:01 | disposition home or self-care (01) | LOC: CF | PROVIDERS: PCP Physician Assistant; Visit Provider Physician Assistant | DX: E03.9 Hypothyroidism, unspecified (principal); E66.811 Obesity, class 1; I10 Essential (primary) hypertension; Z68.34 Body mass index [BMI] 34.0-34.9, adult | CPT/HCPCS: 96127 ==

== ENCOUNTER 2025-04-02 15:35 | Outpatient (AMB) | payer BC, SELFPAY ==
--- NOTE | 2025-04-02 15:51 | MHC.PC.OV ---
Vital Signs 04/02/25 15:52 Height 5 ft 4 in Weight 201 lb 6 oz BMI 34.6 BP 136/80 Blood Pressure Location Lt brachial Position Sitting Pulse 64 Pulse Source Pulse Oximeter Temp 97.5 F Temp Source Temporal Artery Scan Pulse Oximetry (%) 98 Oxygen Delivery Method Room Air Intake Visit Reasons: f/u hypothyroid Intake Note: Patient is here to follow up on Hypothyroid. Tobacco Packing Machine Operator Required: No Websphere Consultant: Not Required per policy Accompanied by: Self / Same As Patient Allergies Seasonal Allergies Allergy (Unknown, Verified 04/02/25 16:00) Unknown Medication List - Last Reconciled 04/02/25 by Andrew Briones PA-C cetirizine (Zyrtec) 10 mg PO DAILY PRN levothyroxine 88 mcg PO DAILY 30 days magnesium oxide 400 mg PO DAILY Tobacco use date assessed: 04/02/25 Dental Screening Dental Screen Date: 04/02/25 Did you have a dental visit in the last 12 months?: Yes Did you have a dental problem in the last 6 months where you did not have access to dental care?: No Was dental information given to patient?: Patient has dentist HPI f/u hypothyroid HPI Details Patient is a 54-year-old female here today for a follow-up visit.? Patient has a past medical history significant for thyroid nodules, hypothyroidism, vitamin-D deficiency, obesity. -Concern--> Hypothyroidism: Continues on levothyroxine 88 mcg since she had lost significant amount of weight on GLP 1. The thyroid disorder has been a concern, with the patient reporting symptoms of weight gain and insomnia, suggesting possible thyroid dysfunction. She has been taking thyroid medication and is considering adjusting the dosage based on upcoming lab results. .. GERD: Recently underwent EGD and a barium swallow. Does have severe GERD and a noted hiatal hernia. Since starting GLP 1 her GERD symptoms have essentially resolved. She is now only taking pantoprazole on as needed basis .. HTN: Patient was previously on losartan for blood pressure control though when she was able to lose significant amount of weight she was able to get off of losartan. Today's blood pressure in office reasonable at 130 systolic. Advised to monitor blood pressure at home CLass 1 Obesity: Patient has gained weight back since being off GLP 1. Unfortunately insurance was not covering GLP 1 anymore. She was able to get her BMI down to 29 when on a GLP 1. Now BMI back to 34.6. [facility] Medical History Vitamin D deficiency Multinodular thyroid Hypothyroidism Surgical History Hx of removal of cyst (11/30/23) Hx of colonoscopy History of esophagogastroduodenoscopy (EGD) History of dilatation and curettage Hx of tonsillectomy Hx of section Family History Father Lung cancer Mother Hypothyroidism Diabetes mellitus CAD (coronary artery disease) Brother CAD (coronary artery disease), Onset Age: 50 Diabetes mellitus Social History Housing: House Are you a primary personal caregiver to a significant other at home: No Do you presently have visiting nurse or other home services: No Alcohol intake: former Patient Tobacco Use Status: Former Tobacco user Tobacco use type: Cigarette Cigarette Packs Per Day: 1 Years Smoked: 20 Packs Per Year: 20 e-Cigarette/Vaping Use: Never Used Second Hand Smoke Exposure: Yes service: No Current occupational status: employed 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 1. Little interest or pleasure in doing things: not at all 2. Feeling down, depressed, or hopeless: not at all 3. Trouble falling or staying asleep, or sleeping too much: nearly every day 4. Feeling tired or having little energy: nearly every day 5. Poor appetite or overeating: not at all 6. Feeling bad about yourself - or that you are a failure or have let yourself or your family down: not at all 7. Trouble concentrating on things, such as reading the newspaper or watching television: not at all 8. Moving or speaking so slowly that other people could have noticed. Or the opposite - being so fidgety or restless that you have been moving around a lot more than usual: not at all 9. Thoughts that you would be better off or of hurting yourself in some way: not at all Total score: 6 Depression Screening Interpretation: Positive Depression Screening Follow-up: Existing condition Depression Screening Done: Yes 93543 - PHQ-9 Billing: Yes Source: Developed by Drs. Mal Malhotra, Pat Machado, Rasheed Giang and colleagues, with an educational anna from [email or web address]. Thrive Questionnaire Date Thrive assessed: 03/26/25 I am a: Patient What is your living situation today?: I have a steady place to live Within the past 12 months, did the food you bought not last and you didn't have the money to get more?: Never true Within the past 12 months, did you worry whether your food would run out before you got money to buy more?: Never true Do you have trouble paying for medicines?: No Do you have trouble getting transportation to medical appointments?: No Do you have trouble paying your heating and electricity bill?: No Do you have trouble taking care of your child, family member or friend?: No Do you have trouble with day-to-day activities such as bathing, preparing meals, shopping, managing finances, etc.?: No Are you currently unemployed and looking for a job?: No Are you interested in more education?: No Please select the resources that you would like help with: None Currently or been in a relationship where the following occur: No concerns reported THRIVE Score: 0 AUDIT C Alcohol Use Questionnaire (AUDIT-C) 1. How often do you have a drink containing alcohol?: 2-3 times a week 2. How many drinks containing alcohol do you have on a typical day when you are drinking?: 1 or 2 3. How often do you have six or more drinks on one occasion?: Never Total Score: 3 JT-7 AMB Questionnaire JT-7 Date JT - 7 assessed: 04/02/25 Feeling nervous, anxious, or on edge: 0 = Not at all Not being able to stop or control worryin = Not at all Worrying too much about different things: 0 = Not at all Trouble relaxin = Not at all Being so restless that it is hard to sit still: 0 = Not at all Becoming easily annoyed or irritable: 0 = Not at all Feeling afraid as if something awful might happen: 0 = Not at all Total JT-7 score (0-4 normal; 5-9 mild; 10-14 moderate; 15-21 severe): 0 Source: Developed by Drs. Mal Malhotra, Pat Machado, Rasheed Giang and colleagues, with an educational anna from [email or web address]. JT-7 Assessment Billing JT-7 Assessment Tool: JT-7 Assessment 50002 Review of Systems Const Denies headache(s) Eyes Denies loss of vision ENT Denies vertigo, Denies dizziness, Denies headache(s) and Denies sore throat Card Denies chest pain, Denies leg edema and Denies lightheadedness Resp Denies cough, Denies hemoptysis and Denies wheezing GI Denies abdominal pain, Denies melena, Denies constipation, Denies diarrhea and Denies vomiting Denies urinary frequency, Denies dysuria and Denies urinary urgency Musc Denies arthralgias, Denies joint swelling, Denies numbness and Denies tingling Neuro Denies Abnormal speech present, Denies behavioral changes, Denies vertigo, Denies dizziness, Denies headache(s), Denies loss of vision, Denies memory loss, Denies numbness and Denies tingling Psych Denies anxiety, Denies behavioral changes, Denies depression, Denies memory loss and Denies panic attacks Donn/Lymph Denies easy bleeding and Denies easy bruising Aller/Immun Denies wheezing Physical exam (Primary Care) Vital Signs: Last Vital Signs Temp 97.5 F 04/02/25 15:52 Pulse 64 04/02/25 15:52 BP 136/80 04/02/25 15:52 Pulse Ox 98 04/02/25 15:52 Oxygen Delivery Method Room Air 04/02/25 15:52 BMI result Body Mass Index 34.6 BMI Assessment/Plan discussion: High BMI High, discussed plan: lifestyle, weight reduction, dietary and physical activity Tobacco/Smoking Status: Tobacco use Status Tobacco use date assessed 04/02/25 04/02/25 15:57 Patient Tobacco Use Status Former Tobacco user 04/02/25 15:57 Tobacco use type Cigarette 04/02/25 15:57 e-Cigarette/Vaping Use Never Used 04/02/25 15:57 PHQ-9: PHQ-9 Score PHQ-9: Total score 6 09/10/25 16:11 Depression Screening Interpretation: Positive Depression Screening Follow-up: Existing condition Thrive Assessment: Date of Thrive Assessment Date Thrive assessed 03/26/25 04/02/25 15:57 Currently or been in a relationship where the following occur: No concerns reported Const General: healthy appearing, no acute distress, alert and awake Nutritional Appearance: well nourished Orientation/consciousness: oriented to person, oriented to place and oriented to time HENMT Ears: TM's normal bilaterally General nose exam: Normal nasal mucous membranes and turbinates present Eyes Conjunctivae: conjunctivae normal Sclerae: sclerae normal Pupils: Equal, round and reactive pupils present Neck Neck: Yes no lymphadenopathy and Yes no JVD Thyroid: Thyroid normal Carotids: no bruits Resp Effort & Inspection: normal respiratory effort and not tachypneic Auscultation: no crackles, no rales, no rhonchi and no wheezes Cardio Rate: regular rate Rhythm: regular rhythm Heart sounds: no murmurs and normal S1 and S2 GI Palpation (GI): Soft to palpation, nontender, no hepatomegaly and no splenomegaly Auscultation: normal bowel sounds Skin General skin exam: no rashes or lesions noted and dry skin Neuro General: oriented to person, oriented to place and oriented to time Cranial nerves: Yes Equal, round and reactive pupils present Speech: No Abnormal speech present Gait exam (Neuro): Normal gait present Motor exam (neuro): no tremor noted Extrem Right upper extremity: full ROM Left upper extremity: full ROM Right lower extremity: full ROM; no edema Left lower extremity: full ROM; no edema Psych Mental Status: mental status grossly normal Speech and movement: Normal speech and movement present Affect: normal affect Attitude: cooperative Thought process: Normal thought process present Coding Level of Care Code Est Pt Level 4 (88577) Diagnoses Hypothyroidism, unspecified type E03.9 Hypothyroidism type: unspecified Class 1 obesity E66.811 Benign essential hypertension I10 Additional Codes JT-7 Assessment Billing - JT-7 Assessment Tool: JT-7 Assessment 76212 ([id number]) PHQ-9 - 28265 - PHQ-9 Billing: Yes ([id number]) Assessment & Plan Assessment & Plan (1) Hypothyroidism: Code(s): E03.9 - Hypothyroidism, unspecified Category: Medical Qualifiers: Hypothyroidism type: unspecified Qualified Code(s): E03.9 - Hypothyroidism, unspecified Plan: Patient has noted weight gain since last office visit, was recently on a GLP 1 which was working for her to lose weight though due to insurance coverage has been discontinued. Continues on levothyroxine 88 mcg and suspect that thyroid is under active. Will recheck TSH in consider increasing her levothyroxine dose. (2) Class 1 obesity: Code(s): E66.811 - Obesity, class 1 Category: Medical Plan: Weight management strategies were discussed, including the possibility of attending a weight management clinic and considering lifestyle changes. (3) Benign essential hypertension: Code(s): I10 - Essential (primary) hypertension Category: Medical Plan: Patient previously on losartan though was able to discontinue this medication due to weight loss. The plan for hypertension includes continued monitoring of blood pressure and lifestyle modifications to manage the condition. Goal blood pressure to be below 140/90
[2025-04-02 15:52] VITALS: BP 136/80; PULSE 64; TEMP 36.4; O2SAT 98; BMI 34.6
== END 2025-04-02 16:22 | disposition home or self-care (01) ==
LOC: HO.HMCH 15:36
PROVIDERS: PCP Physician Assistant; Visit Provider Physician Assistant
DX: E03.9 Hypothyroidism, unspecified (principal); E66.811 Obesity, class 1; I10 Essential (primary) hypertension; Z68.34 Body mass index [BMI] 34.0-34.9, adult

== ENCOUNTER 2025-04-07 07:16 | Outpatient (REF) | payer BC, SELFPAY ==
[2025-04-07 08:29] LABS: Hematocrit 38.1 % (37.0-47.0); Hemoglobin 13.1 g/dl (12.0-16.0); Mean Corpuscular HGB Conc 34.4 g/dl (31.0-35.0); Mean Corpuscular Hemoglobin 30.8 pg (27.0-33.0); Mean Corpuscular Volume 89.4 fL (80.0-98.0); NRBC Abs Auto 0.000 X10*3/uL (0.0-0.012); NRBC Pct Auto 0.0 /100WBC (0.0-0.2); Platelet Count 203 X10*3/uL (160-400); Red Blood Count 4.26 X10*6/uL (4.20-5.50); White Blood Count 5.7 X10*3/uL (4.8-10.8)
[2025-04-07 08:53] LABS: Alanine Aminotransferase 26 U/L (0-31); Albumin Level 4.3 g/dL (3.5-5.0); Alkaline Phosphatase 53 U/L (39-117); Anion Gap 11 (12-20); Aspartate Amino Transferase 26 U/L (5-31); Blood Urea Nitrogen 15 mg/dL (9-16); Calcium 8.6 mg/dL (8.4-10.2); Carbon Dioxide 28 mmol/L (22-29); Chloride 110 mmol/L (96-108); Cholesterol 135 mg/dL (<200); Estimated Glomerular Filt Rate > 60; HDL Cholesterol 61 mg/dL (>40); Potassium 3.9 mmol/L (3.3-5.1); Sodium 145 mmol/L (135-145); Total Protein 6.8 g/dL (6.5-8.0); Triglycerides 45 mg/dL (<150)
== END 2025-04-07 07:17 | disposition home or self-care (01) ==
LOC: HO.LAB 07:16
PROVIDERS: PCP Physician Assistant; Visit Provider Physician Assistant
DX: I10 Essential (primary) hypertension (principal); E03.9 Hypothyroidism, unspecified; E55.9 Vitamin D deficiency, unspecified; Z82.49 Family history of ischemic heart disease and other diseases of the circulatory system
CPT/HCPCS: 36415; 80053; 80061; 82306; 84443; 85027

== ENCOUNTER 2025-04-12 10:18 | Outpatient (REF) | payer BC, SELFPAY ==
[2025-04-14 21:24] LABS: Thyroglobulin 1.1 ng/mL; Thyroglobulin Antibodies 7 IU/mL (< or = 1)
== END 2025-04-12 10:19 | disposition home or self-care (01) ==
LOC: HO.LAB 10:18
PROVIDERS: PCP Physician Assistant; Visit Provider Physician Assistant
DX: Z01.84 Encounter for antibody response examination (principal); E03.9 Hypothyroidism, unspecified
CPT/HCPCS: 36415; 84432; 84436; 84480; 86376; 86800

== ENCOUNTER 2025-06-23 14:58 | Outpatient (AMB) | payer BC, SELFPAY ==
--- NOTE | 2025-06-23 15:02 | A.OFFVIS_ITS ---
Vital Signs 06/23/25 15:04 Height 5 ft 3 in Weight 207 lb 10.807 oz BMI 36.8 BP 150/74 H Blood Pressure Location Lt brachial Position Sitting Pulse 71 Pulse Source Pulse Oximeter Pulse Oximetry (%) 96 Oxygen Delivery Method Room Air Intake Visit Reasons: Nontoxic multinodular goiter Intake Note: New patient internally referred by PCP for NTMNG. Certified Physician'S Assistant Required: No Accompanied by: Self / Same As Patient Allergies Seasonal Allergies Allergy (Unknown, Verified 06/23/25 15:05) Unknown Medication List - Last Reconciled 06/23/25 by Mal Choudhury MD cetirizine (Zyrtec) 10 mg PO DAILY PRN levothyroxine 88 mcg PO DAILY 30 days magnesium oxide 400 mg PO DAILY semaglutide mg subcut HPI Comments Details: 55 YO F with PMHx Grave's disease s/p I131 ablation, now hypothyroid who is seen in F/U for Nontoxic MNG. The patient last saw Dr. Felton 09/28/22 She has a history of Grave's disease which was diagnosed at the age of 24. She had I131 ablation at the age of 26. She has required Levothyroxine since 6 months post-treatment. Dose was titrated upward to her current dose of 150 mcg PO daily. She stopped this of her own accord in mid 2018, TSH maia to >19, and then Levothyroxine was resumed. PCP ordered thyroid US and there was mention of a 1.8 cm L lower pole thyroid nodule with irregular margins. She went for FNA of this nodule 01/01/19, but the nodule was not well visualized. FNA was attempted, but it was nondiagnostic. She then underwent thyroid US by Dr. Felton 08/01/2019 which revealed a diffusely heterogenous gland with many fibrous bands, consistent with autoimmune thyroid disease. There were many pseudonodules visualized, but no true nodules. Her TSH has remained WNL. Currently reports feeling well. Denies any history of head or neck irradiation. Denies any family history of thyroid cancer. Thyroid US: 11/27/18 Right Thyroid Lobe: 3.2 x 1.3 x 1.2 cm, volume 2.6 mL. Parenchyma: The gland echotexture is heterogeneous. Thyroid vascularity is normal. Left Thyroid Lobe: 4.3 x 1.4 x 1.5 cm, volume 4.8 mL. Parenchyma: The gland echotexture is heterogeneous. Thyroid vascularity is normal. Isthmus: 0.4 cm in maximum AP dimension. RIGHT THYROID LOBE: There are 3 nodules seen. 1. Location: Superior. Size: 0.4 x 0.3 x 0.3 cm. Nodule characteristics: Hypoechoic, smooth margin, no calcification and no intranodular flow.. 2. Location: Inferior. Size: 0.5 x 0.3 x 0.4 cm. Nodule characteristics: Hypoechoic and slightly heterogeneous, smooth margin, no calcific agent no intranodular flow.. 3. Location: Inferior. Size: 0.6 x 0.6 x 0.4 cm. Nodule characteristics: Hypoechoic and slightly heterogeneous, smooth margin, no calcification and no intranodular flow.. ISTHMUS: No nodules. LEFT THYROID LOBE: There are 2 nodules seen. 1. Location: Superior. Size: 0.5 x 0.5 x 0.5 cm. Nodule characteristics: Hyperechoic, smooth margin, no calcification and no intranodular flow.. 2. Location: Inferior. Size: 1.8 x 1.3 x 1.1 cm. Nodule characteristics: Hypoechoic and heterogeneous, irregular margin, calcification and positive intranodular flow. This has suspicious ultrasound features. NODES: No lymphadenopathy is seen in the tissue surrounding the thyroid gland. Labs: Laboratory Tests 08/20/22 08:56 25-OH Vitamin D Total 30.6 TSH 1.20 Currently on levothyroxine 88 mcg PFSH Medical History Vitamin D deficiency Multinodular thyroid Hypothyroidism Surgical History Hx of removal of cyst (11/30/23) Hx of colonoscopy History of esophagogastroduodenoscopy (EGD) History of dilatation and curettage Hx of tonsillectomy Hx of section Family History Father Lung cancer Mother Hypothyroidism Diabetes mellitus CAD (coronary artery disease) Brother CAD (coronary artery disease), Onset Age: 50 Diabetes mellitus Social History Housing: House Are you a primary assurance services manager health care to a significant other at home: No Do you presently have visiting nurse or other home services: No Alcohol intake: former Patient Tobacco Use Status: Former Tobacco user Tobacco use type: Cigarette Cigarette Packs Per Day: 1 Years Smoked: 20 e-Cigarette/Vaping Use: Never Used Second Hand Smoke Exposure: Yes service: No Current occupational status: employed 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 There are no thyroid nodules palpated. There was no cervical adenopathy palpated Assessment & Plan Assessment & Plan (1) Hypothyroidism: Code(s): E03.9 - Hypothyroidism, unspecified Category: Medical Qualifiers: Hypothyroidism type: unspecified Qualified Code(s): E03.9 - Hypothyroidism, unspecified Plan: This is a 55-year-old white female with a history of post-ablative of hypothyroidism currently being treated with 88 mcg levothyroxine. She appears to be clinically euthyroid but has a slightly elevated TSH Plan is to increase levothyroxine to 100 mcg and recheck TSH and free T4 in 6 weeks' time. Also tell patient to talk to primary care provider about getting a sleep study. Lastly will check 24 hour urine for free cortisol and creatinine. I will have a follow-up with Dr. Bonds in about 4 months time who can better assess her neck for thyroid nodules that were previously visualized. Orders: Orders Free T4 (Free Thyroxine) 6 Weeks E03.9 - Hypothyroidism, unspecified Cortisol, Free 24Hr Urine Today R63.5 - Abnormal weight gain Thyroid Stimulating Hormone 6 Weeks E03.9 - Hypothyroidism, unspecified Creatinine, 24 Hr Group Today R63.5 - Abnormal weight gain Medications: New levothyroxine (Levoxyl) 100 mcg PO DAILY 30 tabs 5RF Discontinued levothyroxine Discontinued Reason: Doctor's Order 88 mcg PO DAILY 30 days 30 tabs 3RF E03.9 - Hypothyroidism, unspecified Coding Level of Care Code Est Pt Level 3 (22053) Diagnoses Hypothyroidism, unspecified type E03.9 Hypothyroidism type: unspecified
[2025-06-23 15:04] VITALS: BP 150/74; PULSE 71; O2SAT 96; BMI 36.8
== END 2025-06-23 15:47 | disposition home or self-care (01) ==
LOC: HO.ENCR 14:59
PROVIDERS: PCP Physician Assistant; Visit Provider Internal Medicine Endocrinology, Diabetes & Metabolism
DX: E03.9 Hypothyroidism, unspecified (principal)
CPT/HCPCS: 99213

== ENCOUNTER 2025-07-02 16:01 | Outpatient (AMB) | payer BC, SELFPAY ==
[2025-07-02 16:19] VITALS: BP 138/96; PULSE 69; O2SAT 97; BMI 36.2
--- NOTE | 2025-07-02 16:19 | MHC.PC.OV ---
Vital Signs 07/02/25 16:19 Height 5 ft 3 in Weight 204 lb 4 oz BMI 36.2 BP 138/96 H Blood Pressure Location Lt brachial Position Sitting Pulse 69 Pulse Source Pulse Oximeter Pulse Oximetry (%) 97 Oxygen Delivery Method Room Air Intake Visit Reasons: Annual Exam Manager Of Program Required: No Accompanied by: Self / Same As Patient Allergies Seasonal Allergies Allergy (Unknown, Verified 07/02/25 16:29) Unknown lisinopril Adverse Reaction (Intermediate, Verified 07/02/25 16:43) Cough Medication List - Last Reconciled 07/02/25 by Andrew Briones PA-C cetirizine (Zyrtec) 10 mg PO DAILY PRN levothyroxine (Levoxyl) 100 mcg PO DAILY magnesium oxide 400 mg PO DAILY semaglutide mg subcut Tobacco use date assessed: 07/02/25 Dental Screening Dental Screen Date: 07/02/25 Did you have a dental visit in the last 12 months?: Yes Did you have a dental problem in the last 6 months where you did not have access to dental care?: No Was dental information given to patient?: Patient has dentist HPI Annual Exam HPI Details Patient is a 55-year-old female here today for routine annual physical Patient has a past medical history significant for thyroid nodules, hypothyroidism, vitamin-D deficiency, obesity. Hypothyroidism: Has establish care with endocrinology in his awaiting upcoming evaluation and thyroid ultrasound with thyroid specialist. Now continues on levothyroxine 100 mcg. Of note patient was on a GLP 1 previously was able to lose weight and able to reduce her levothyroxine dose to 88 mcg. The thyroid disorder has been a concern, with the patient reporting symptoms of weight gain and insomnia, suggesting possible thyroid dysfunction. She has been taking thyroid medication and is considering adjusting the dosage based on upcoming lab results. .. GERD: Recently underwent EGD and a barium swallow. Does have severe GERD and a noted hiatal hernia. Her GERD symptoms were better when she was on a GLP 1.. .. HTN: Patient's blood pressure elevated today in office. Patient was previously on losartan for blood pressure control though when she was able to lose significant amount of weight she was able to get off of losartan. PLAN: Will return to using losartan 25 mg daily for better blood pressure control CLass 2 Obesity: Patient has gained weight back since being off GLP 1. Unfortunately insurance was not covering GLP 1 anymore. She has return back to using a GLP 1 via online. She was able to get her BMI down to 29 when on a GLP 1. Now BMI back to 36. Vaccines:? Needs Tdap, UTD with COVID Vac, UTD with Flu , considering shingles vaccine Mammogram: - done in mar BIRADS 2. 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 Done in February of 2023 normal repeat 10 years PFSH Medical History Vitamin D deficiency Multinodular thyroid Hypothyroidism Surgical History Hx of removal of cyst (11/30/23) Hx of colonoscopy History of esophagogastroduodenoscopy (EGD) History of dilatation and curettage Hx of tonsillectomy Hx of section Family History Father Lung cancer Mother Hypothyroidism Diabetes mellitus CAD (coronary artery disease) Brother CAD (coronary artery disease), Onset Age: 50 Diabetes mellitus Social History (Updated 07/02/25 @ 16:34 by Andrew Briones PA-C) Housing: House Are you a primary child care attendant to a significant other at home: No Do you presently have visiting nurse or other home services: No Alcohol intake: current Alcohol intake frequency: holidays/special occasions only Patient Tobacco Use Status: Former Tobacco user Tobacco use type: Cigarette Cigarette Packs Per Day: 1 Years Smoked: 20 e-Cigarette/Vaping Use: Never Used Second Hand Smoke Exposure: Yes service: No Current occupational status: employed 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 1. Little interest or pleasure in doing things: not at all 2. Feeling down, depressed, or hopeless: not at all 3. Trouble falling or staying asleep, or sleeping too much: nearly every day 4. Feeling tired or having little energy: nearly every day 5. Poor appetite or overeating: not at all 6. Feeling bad about yourself - or that you are a failure or have let yourself or your family down: not at all 7. Trouble concentrating on things, such as reading the newspaper or watching television: not at all 8. Moving or speaking so slowly that other people could have noticed. Or the opposite - being so fidgety or restless that you have been moving around a lot more than usual: not at all 9. Thoughts that you would be better off or of hurting yourself in some way: not at all Total score: 6 Source: Developed by Drs. Mal Malhotra, Pat Machado, Rasheed Giang and colleagues, with an educational anna from [employer]. Thrive Questionnaire Date Thrive assessed: 07/02/25 I am a: Patient What is your living situation today?: I have a steady place to live Within the past 12 months, did the food you bought not last and you didn't have the money to get more?: Never true Within the past 12 months, did you worry whether your food would run out before you got money to buy more?: Never true Do you have trouble paying for medicines?: No Do you have trouble getting transportation to medical appointments?: No Do you have trouble paying your heating and electricity bill?: No Do you have trouble taking care of your child, family member or friend?: No Do you have trouble with day-to-day activities such as bathing, preparing meals, shopping, managing finances, etc.?: No Are you currently unemployed and looking for a job?: No Are you interested in more education?: No Please select the resources that you would like help with: None Currently or been in a relationship where the following occur: No concerns reported THRIVE Score: 0 AUDIT C Alcohol Use Questionnaire (AUDIT-C) 1. How often do you have a drink containing alcohol?: 2-3 times a week 2. How many drinks containing alcohol do you have on a typical day when you are drinking?: 1 or 2 3. How often do you have six or more drinks on one occasion?: Never Total Score: 3 JT-7 AMB Questionnaire JT-7 Date JT - 7 assessed: 07/02/25 Feeling nervous, anxious, or on edge: 0 = Not at all Not being able to stop or control worryin = Not at all Worrying too much about different things: 0 = Not at all Trouble relaxin = Not at all Being so restless that it is hard to sit still: 0 = Not at all Becoming easily annoyed or irritable: 0 = Not at all Feeling afraid as if something awful might happen: 0 = Not at all Total JT-7 score (0-4 normal; 5-9 mild; 10-14 moderate; 15-21 severe): 0 Source: Developed by Drs. Mal Malhotra, Pat Machado, Rasheed Giang and colleagues, with an educational anna from [employer]. JT-7 Assessment Billing JT-7 Assessment Tool: JT-7 Assessment 43785 Review of Systems Const Denies body aches, Denies chills, Denies excessive sweating, Denies fatigue, Denies fever(s) and Denies headache(s) Eyes Denies blurry vision ENT Denies dysphagia, Denies vertigo, Denies dizziness, Denies headache(s), Denies hearing loss and Denies tinnitus Card Denies chest pain, Denies chest pain with activity, Denies syncope, Denies irregular heart rhythm and Denies dyspnea Resp Denies chest congestion, Denies cough, Denies hemoptysis, Denies dyspnea and Denies wheezing GI Denies abdominal pain, Denies melena, Denies hematochezia, Denies coffee ground emesis, Denies dysphagia, Denies diarrhea, Denies nausea and Denies vomiting Denies urinary frequency, Denies dysuria, Denies urinary hesitancy and Denies urinary urgency Musc Denies arthralgias, Denies limited range of motion, Denies muscle cramps and Denies muscle weakness Skin/Breast Denies rash and Denies skin ulcer Neuro Denies Abnormal speech present, Denies confusion, Denies vertigo, Denies dizziness, Denies syncope, Denies headache(s), Denies memory loss and Denies seizure-like activity Psych Denies anxiety, Denies confusion, Denies depression, Denies memory loss, Denies panic attacks and Denies paranoia Endo Denies excessive sweating, Denies fatigue, Denies flushing, Denies polydipsia and Denies polyuria Aller/Immun Denies wheezing Physical exam (Primary Care) Vital Signs: Last Vital Signs Pulse 69 07/02/25 16:19 BP 138/96 H 07/02/25 16:19 Pulse Ox 97 07/02/25 16:19 Oxygen Delivery Method Room Air 07/02/25 16:19 BMI result Body Mass Index 36.2 BMI Assessment/Plan discussion: High BMI High, discussed plan: lifestyle, weight reduction, dietary and physical activity Tobacco/Smoking Status: Tobacco use Status Tobacco use date assessed 07/02/25 07/02/25 16:25 Patient Tobacco Use Status Former Tobacco user 07/02/25 16:34 Tobacco use type Cigarette 07/02/25 16:34 e-Cigarette/Vaping Use Never Used 07/02/25 16:34 PHQ-9: PHQ-9 Score PHQ-9: Total score 6 07/02/25 16:37 Thrive Assessment: Date of Thrive Assessment Date Thrive assessed 07/02/25 07/02/25 16:25 Currently or been in a relationship where the following occur: No concerns reported Const General: cooperative, comfortable, no acute distress, alert and awake; No confusion Orientation/consciousness: oriented to person, oriented to place, patient oriented x3 and No confusion HENMT Head: Yes normocephalic Ears: external ears normal and TM's normal bilaterally Face and sinus: No sinus tenderness Mouth: Normal oral and palatal mucosa present and tongue normal Teeth and gingiva: dentition normal and gingiva normal Throat: Yes posterior oropharynx normal, Yes tonsils normal and Yes uvula midline Eyes Conjunctivae: conjunctivae normal Sclerae: sclerae normal Pupils: Equal, round and reactive pupils present EOM: EOMs intact bilaterally Direct Ophthalmoscopy: No no photophobia Neck Neck: Yes no lymphadenopathy, No tender and Yes no JVD Thyroid: Thyroid normal Carotids: no bruits Chest Chest palpation & inspection: no tenderness Resp Effort & Inspection: normal respiratory effort, no audible wheezes, not labored and no stridor Auscultation: no crackles, no rales, no rhonchi and no wheezes Cardio Jugular venous distension: no JVD Rate: regular rate, not bradycardic and not tachycardic Rhythm: regular rhythm Bruits: no carotid bruits Peripheral pulses: Peripheral pulses 2+ throughout GI Inspection: Yes normal to inspection, No abdominal wall ecchymosis and No visible herniation Palpation (GI): Soft to palpation, nontender, no guarding, not rigid and No hepatosplenomegaly present Auscultation: normoactive bowel sounds General: Yes no CVA tenderness Back/Spine/Pelvis Back: no CVA tenderness and No back tenderness Cervical Spine: cervical ROM normal Thoracic/Lumbar Spine: thoracic and lumbar spine normal to inspection, straight leg raise negative bilaterally, No thoraco-lumbar ROM limited and No lumbar spinal tenderness Skin Lesions: no lesions Rashes: no rashes Wounds: no wounds Neuro General: oriented to person, oriented to place, patient oriented x3, CN's II-XI intact bilaterally and No confusion Cranial nerves: Yes Equal, round and reactive pupils present and Yes Normal accommodation reflex present Cognition (Neuro): normal cognition Speech: No Abnormal speech present Gait exam (Neuro): Normal gait present Motor exam (neuro): 5/5 motor strength present throughout Extrem Right upper extremity: full ROM; no cyanosis Left upper extremity: full ROM; no cyanosis Right lower extremity: no edema Left lower extremity: no edema Psych Appearance: grossly normal Mental Status: mental status grossly normal Affect: normal affect Attitude: cooperative Thought process: Normal thought process present Coding Level of Care Code Est Pt Prev Care 40-64y(17301) Diagnoses Annual physical exam Z00.00 Cervical cancer screening Z12.4 Encounter for screening mammogram for malignant neoplasm of breast Z12.31 Breast cancer screening modality: mammogram Benign essential hypertension I10 Hypothyroidism, unspecified type E03.9 Hypothyroidism type: unspecified Class 1 obesity E66.811 Additional Codes JT-7 Assessment Billing - JT-7 Assessment Tool: JT-7 Assessment 25822 ([id number]) Assessment & Plan Assessment & Plan (1) Annual physical exam: Code(s): Z00.00 - Encounter for general adult medical examination without abnormal findings Category: Medical Plan: as per HPI (2) Cervical cancer screening: Code(s): Z12.4 - Encounter for screening for malignant neoplasm of cervix Category: Medical Plan: Patient in need for cervical cancer screening. (3) Breast cancer screening: Code(s): Z12.39 - Encounter for other screening for malignant neoplasm of breast Category: Medical Qualifiers: Breast cancer screening modality: mammogram Qualified Code(s): Z12.31 - Encounter for screening mammogram for malignant neoplasm of breast Plan: Patient in need for mammogram (4) Benign essential hypertension: Code(s): I10 - Essential (primary) hypertension Category: Medical Plan: Regarding her elevated blood pressure, I recommended she resume taking losartan 25 mg to manage hypertension while she works on weight reduction. Goal blood pressure is to be below 130/80 (5) Hypothyroidism: Code(s): E03.9 - Hypothyroidism, unspecified Category: Medical Qualifiers: Hypothyroidism type: unspecified Qualified Code(s): E03.9 - Hypothyroidism, unspecified Plan: For her hypothyroidism and weight management, I will defer thyroid management to her package lift operator, Dr. Choudhury, who is arranging for a specialized thyroid ultrasound and additional metabolic workup including a 24-hour urine cortisol. (6) Class 1 obesity: Code(s): E66.811 - Obesity, class 1 Category: Medical Plan: Patient does understand her BMI is over 30 and will continue working on being more physically active and adapting to better eating habits to reduce her weight. She mentions she will be getting a GLP 1 compound online and try to help lose weight as she has been able to lose significant amount of weight on prescribed GLP 1 [place] in the past. Orders: Orders MM screening mammo BI Today Z12.31 - Encounter for screening mammogram for malignant neoplasm of breast Referrals PURCHASING ENGINEER Referral Z12.4 - Encounter for screening for malignant neoplasm of cervix
== END 2025-07-02 16:57 | disposition home or self-care (01) ==
LOC: HO.HMCH 16:02
PROVIDERS: PCP Physician Assistant; Visit Provider Physician Assistant
DX: Z00.00 Encounter for general adult medical examination without abnormal findings (principal); I10 Essential (primary) hypertension; E66.811 Obesity, class 1; Z68.36 Body mass index [BMI] 36.0-36.9, adult; E03.9 Hypothyroidism, unspecified; Z12.31 Encounter for screening mammogram for malignant neoplasm of breast

== ENCOUNTER → 2025-07-02 16:01 | Outpatient (BNVA) | payer BC, SELFPAY | PROVIDERS: PCP Physician Assistant; Visit Provider Physician Assistant | DX: Z00.00 Encounter for general adult medical examination without abnormal findings (principal); Z12.4 Encounter for screening for malignant neoplasm of cervix; Z12.31 Encounter for screening mammogram for malignant neoplasm of breast; I10 Essential (primary) hypertension; E03.9 Hypothyroidism, unspecified; E66.811 Obesity, class 1; Z68.36 Body mass index [BMI] 36.0-36.9, adult | CPT/HCPCS: 96127 ==